=== PATIENT | male | born 1965 | race Caucasian/White ===

== ENCOUNTER 2017-02-11 12:15 | Inpatient (IN) ==
[2017-02-11] MEDS ORDERED: NS 1,000 ML IV SCH (13:00)
--- NOTE | 2017-02-11 13:07 | Emergency Department Report ---
Nausea/Vomiting/Diarrhea HPI - General Chief complaint: Abdominal Pain Stated complaint: light headed, abd cramping, and bloated Time Seen by Provider: 02/11/17 12:45 Source: patient, other (report from Dr Gomes) - History of Present Illness HPI Narrative: Pt presents from PCP office with a c/o abd pain, bloating , and bowel leakage. Pt reports a perforated bowel over a year ago for which he had a colectomy and colostomy placed. Last week he had an "unknown" radiology test to "check if things were leaking" for which he received dye. Pt states he was instructed he may have some leakage 2/2 the dye administration and then 4 days later he developed abd pain and bloating. He also reports having an actual bowel movement at that time. He reports very little PO intake over hte last several days and has been "belching" frequently MD complaint: diarrhea, abdominal pain, other (bloating, belching, ostomy leakage) Associated Abdominal Pain: Yes Location of pain: diffuse, RUQ Quality: cramping, aching, sharp Consistency: constant Relieving factors: none Exacerbating factors: none Associated symptoms: denies other symptoms - Related Data Home Medications Medication Instructions Recorded Confirmed Quetiapine Fumarate [Seroquel Xr] 800 mg PO HS #0 09/22/15 02/11/17 Warfarin Sodium 5 mg PO SUMOWEFRSA@1800 #0 09/22/15 02/11/17 Benztropine Mesylate 0.5 mg PO BID 01/18/17 02/11/17 L-Methylfolate 1 tab PO DAILY 01/18/17 02/11/17 Pregabalin Cap [Lyrica] 150 mg PO TID 01/18/17 02/11/17 Sertraline [Zoloft] 200 mg PO DAILY 01/18/17 02/11/17 Trazodone [Desyrel] 100 mg PO TID PRN 01/18/17 02/11/17 Warfarin Sodium 7.5 mg PO TUTH@1800 01/18/17 02/11/17 Brexpiprazole [Rexulti] 2 mg PO DAILY 02/11/17 02/11/17 Allergies Allergy/AdvReac Type Severity Reaction Status Date / Time No Known Drug Allergies Allergy Unknown Verified 02/11/17 12:23 Review of Systems All systems: reviewed and negative except as stated Constitutional: Denies: fever, chills Cardiovascular: Denies: chest pain, palpitations Respiratory: Denies: cough, dyspnea Gastrointestinal: Reports: abdominal pain, nausea Neurological: Reports: weakness Psychiatric: Reports: anxiety, depression PFS Patient Stated Medical History Pneumonia Yes Other Respiratory Yes: pe Other GI Yes Blood Disorders Yes: Factor V Leiden Other Hematologic Yes: pe Other Musculoskeletal Yes: Dystonia Medical History Updates: Chronic pain. Depression. Insomnia. Factor V leiden. Dystonia - Social History Smoking status: Current some day smoker Physical Exam - Limitations Limitations: no limitations - General General appearance: alert, in no apparent distress - Normal Exams: Head:: Normocephalic without trauma Eyes:: Pupils are PERRLA w/ EOMI Neck:: Full range of motion, without adenopathy Chest/Respirations:: Clear all recinos, with good airflow, and symmetry bilaterally Cardiovascular:: Regular rate and rhythm, without murmur or gallop, Pulses 2+ all extremities Abdomen:: Bowel sounds positive (diffuse pain with palpation, more prominent to the RUQ around colostomy site) Musculoskeletal:: No tenderness, or deformity noted, good range of motion Integumentary:: No rashes Neurological:: Patient is alert, and oriented Psychiatric:: Patient exhibits, appropriate attention, emotion and affect Course - Consultations Consultation #1: Mireya Time: 14:41 Consultation #2: Chelsy Time: 14:48 Vital Signs Temperature 97.9 F 02/11/17 12:23 Pulse Rate 99 02/11/17 12:23 Respiratory Rate 20 02/11/17 12:23 Blood Pressure 90/65 02/11/17 12:23 Pulse Oximetry 96 02/11/17 12:23 Temperature 97.9 F 02/11/17 12:23 Pulse Rate 94 02/11/17 14:15 Respiratory Rate 20 02/11/17 12:23 Blood Pressure 129/87 02/11/17 14:15 Pulse Oximetry 97 02/11/17 14:15 Nausea/Vomiting/Diarrhea - [facility] Narrative Medical decision making narrative: Labs reviewed consistent with dehydration and ARF. Ct report shows small bowel obstruction which is consistent with pt presentation and verbal reports. Dr Gomes notified and updated on diagnostic findings. Pt to be admitted to Dr Valentino. Results discussed with pt who verbalizes understanding - Differential Diagnosis Likely: food poisoning, gastroenteritis, clostridium difficile infection, dehydration - Lab Data Attestation: I reviewed the patient's lab results. Result diagrams: 02/11/17 13:16 02/11/17 13:16 Lab Results 02/11/17 02/11/17 02/11/17 Range/Units 13:16 13:16 13:16 WBC 12.0 H (4.5-11.0) T/MM3 RBC 5.07 (4.50-5.90) M/MM3 Hgb 13.9 (13.5-17.5) GM/DL Hct 40.9 L (41-53) % MCV 80.7 (80-100) UM3 MCH 27.4 (26-34) UUG MCHC 34.0 (31-37) GM/DL RDW Std Deviation 42.8 (36.9-50.2) FL Plt Count 286 D (130-400) T/MM3 MPV 10.8 (9.4-12.4) UM3 Immature Gran % (Auto) 0.4 (0.0-0.5) % Neut % (Auto) 77.2 H (33-66) % Lymph % (Auto) 10.2 L (23-45) % Hendricks % (Auto) 10.9 H (0-9.0) % Eos % (Auto) 1.2 (0-4) % Baso % (Auto) 0.1 (0-2) % Neut # (Auto) 9.3 H (1.8-7.7) T/MM3 Lymph # (Auto) 1.2 (1-4.8) T/MM3 Hendricks # (Auto) 1.3 H (0-0.8) T/MM3 Eos # (Auto) 0.1 (0-0.5) T/MM3 Baso # (Auto) 0.0 (0-0.2) T/MM3 Abs Immat Gran (auto) 0.05 H (0.00-0.03) T/MM3 INR 2.24 H (0.99-1.21) Turbidity < 20 (0-20) Sodium 139 (134-144) MEQ/L Potassium 3.9 (3.6-5) MEQ/L Chloride 99 (98-107) MEQ/L Carbon Dioxide 21 L (22-30) MEQ/L Anion Gap 19 H (5-15) MEQ/L BUN 55.0 H* (9-20) MG/DL Creatinine 2.8 H (0.8-1.5) MG/DL GFR Calculation 24 BUN/Creatinine Ratio 20 (6-26) RATIO Glucose 130 H (75-110) MG/DL Calculated Osmolality 285 H (261-280) MOSM/KG Calcium 11.3 H (8.4-10.2) MG/DL Total Bilirubin 0.70 (0.20-1.30) MG/DL Icterus Index < 2 (0-7) AST 39 (17-59) U/L ALT 65 (21-72) U/L Alkaline Phosphatase 89 (38-126) U/L Total Protein 9.2 H (6.3-8.2) G/DL Albumin 5.1 H (3.5-5.0) G/DL Globulin 4.1 H (2.4-3.6) G/DL Albumin/Globulin Ratio 1.2 (1.1-2.2) RATIO Specimen Hemolysis 31 H (0-25) - Radiology Data Attestation: I reviewed the patient's radiology results. (per Dr Mccarthy) Disposition Clinical Impression: Small bowel obstruction, Acute renal failure (ARF), Dehydration Disposition: 02 To [facility] [place] Care Condition: Improved Additional Instructions: per hospitalist service Prescriptions: No Action Quetiapine Fumarate [Seroquel Xr] 800 mg PO HS #0 Sertraline [Zoloft] 200 mg PO DAILY Benztropine Mesylate 0.5 mg PO BID Warfarin Sodium 7.5 mg PO TUTH@1800 Trazodone [Desyrel] 100 mg PO TID PRN PRN Reason: Prn Orders L-Methylfolate 1 tab PO DAILY Brexpiprazole [Rexulti] 2 mg PO DAILY Warfarin Sodium 5 mg PO SUMOWEFRSA@1800 #0 Pregabalin Cap [Lyrica] 150 mg PO TID Referrals: Noé Dee MD [Primary Care Provider] - Juan Pablo Gomes DO [Family Provider] - Time of Disposition: 14:56 - Seen By: midlevel
[2017-02-11] MEDS ORDERED: NS 100 ML ONE (13:10)
[2017-02-11] MEDS ORDERED: IOHEXOL 300mg/ml 100ml INJECTION ONE (13:10)
[2017-02-11] MEDS ORDERED: SALINE FLUSH 10ml SYRINGE ONE (13:10)
[2017-02-11] MEDS: SALINE FLUSH 10ml SYRINGE IVF PRN (13:30)
[2017-02-11] MEDS ORDERED: IODIXANOL 320mg/ml 100ml INJECTION IV ONE (13:46)
--- OUTSIDE RECORDS SUMMARY | 2017-02-11 13:52 | External Medical Summary | Continuity of Care Document ---
:1965 Author Organization [facility] Care Team Providers Name Role Phone [employer] Unavailable Unavailable Problems Problem Status Onset Classification Date Comments Source Date Reported Pulmonary Embolism Active 10/16/19 Problem 12/09/2013 [facility] Pulmonary embolism Active 10/16/19 Problem 07/29/2013 [facility] Pulmonary Embolism Active 10/16/19 Problem 04/08/2013 [facility] Activity Active Problem 12/09/2013 [facility] intolerance Medical (finding) Centers Encounter for Active Problem 12/09/2013 [facility] therapeutic drug Medical monitoring Centers Anxiety (finding) Active Problem 12/09/2013 [facility] At risk for falls Active Problem 12/09/2013 [facility] (finding[facility] At risk of Active Problem 12/09/2013 [facility] pressure sore Medical (finding) Centers Bipolar disorder Active Problem 12/09/2013 [facility] in partial Medical remission Centers (disorder) Other and Active Problem 12/09/2013 [facility] unspecified Medical coagulation Centers defects Venous embolism Active Problem 12/09/2013 [facility] and thrombosis of Medical unspecified deep Centers vessels of lower extremity Pain in limb Active Problem 12/09/2013 [facility] (finding[facility] Coagulation factor Active Problem 12/09/2013 [facility] V (substance) [facility] Centers Primary Active Problem 12/09/2013 [facility] hypercoagulable Medical state Centers Arthralgia of the Active Problem 12/09/2013 [facility] lower leg Medical (finding) Centers Lipoma Active Problem 12/09/2013 [facility] Obesity, Active Problem 12/09/2013 4Added based on [facility] unspecified documentation Medical of BMI=30.8. Centers Overweight Active Problem 12/09/2013 5Added based on [facility] (finding) documentation Medical of BMI=28.9. Centers Other specified Active Problem 12/09/2013 [facility] forms of effusion, Medical except tuberculous Centers Peripheral venous Active Problem 12/09/2013 [facility] insufficiency Medical (disorder) Centers Pain in joint Active Problem 07/29/2013 [facility] involving lower Medical leg Centers Lipoma Active Problem 07/29/2013 [facility] Obesity (disorder) Active Problem 07/29/2013 4Added based on [facility] documentation Medical of BMI=30.8. Centers Venous Active Problem 07/29/2013 [facility] (peripheral) Medical insufficiency, [facility] unspecified Pain in limb Active Problem 06/03/2013 [facility] Overweight Active Problem 06/03/2013 5Added based on [facility] documentation Medical of BMI=28.9. Centers Activity Active Problem 04/08/2013 [facility] intolerance Medical (specify level) Centers Anticoagulation Active Problem 04/08/2013 [facility] Follow Up Medical Encounter Centers Anxiety Active Problem 04/08/2013 [facility] At risk for falls Active Problem 04/08/2013 [facility] At risk of Active Problem 04/08/2013 [facility] pressure sore [facility] Bipolar disorder Active Problem 04/08/2013 [facility] in partial Medical remission Centers Coagulation Active Problem 04/08/2013 [facility] Deficiency [facility] DVT, lower Active Problem 04/08/2013 [facility] extremity [facility] Extremity Pain Active Problem 04/08/2013 [facility] Factor V Active Problem 04/08/2013 [facility] Factor V Leiden Active Problem 04/08/2013 [facility] Mutation [facility] Knee pain Active Problem 04/08/2013 [facility] Obesity NOS Active Problem 04/08/2013 4Added based on [facility] documentation Medical of BMI=30.8. Centers Pleural effusion Active Problem 04/08/2013 [facility] (other than TB) [facility] Venous Active Problem 04/08/2013 [facility] insufficiency NOS [facility] Medications Medication Details Route Status Patient Ordering Order Source Instructions Provider Date Catia CR =12.5 mg, 1 Inactive Antwon Stahluman 12.5 mg oral tab, PO, QHS, Medical tablet, PRN for sleep, [facility] extended # 30 tab, 2 release Refill(s), other reason (Rx) influenza 0.5 mL, Inactive Anastasia [facility] virus vaccine injection, Medical VACCONCE, IM, [facility] Start date 02/05/11 0:49:00Give prior to discharge if appropriate and with signed consent. Manufacturer__ Exp: _ Lot: _ Paxil 30 mg =60 mg, 2 tab, Active [facility] oral tablet PO, Daily, Medical voucher, # 60 Centers tab, 2 Refill(s), [facility]
</br>vou paramjit Seroquel 300 =300 mg, 1 Active [facility] mg oral tab, PO, QHS, Medical tablet voucher, # 30 Centers tab, 2 Refill(s), Pharm[facility]
</br>vou paramjit trazodone 100 100 mg 1 tab, Active [facility] mg oral PO, QHS, # 30 Medical tablet tab, 1 Centers Refill(s), Pharmacy: [facility] Vicodin PO PO Active [facility] trazodone 50 50 mg 1 tab, PO Active [facility] mg oral PO, QHS, # 30 Medical tablet tab, 1 Centers Refill(s), Pharmacy: [facility] Wellbutrin XL =150 mg, 1 PO Active [facility] 150 mg/24 tab, PO, Q24H, Medical hours oral # 30 tab, 0 Centers tablet, Refill(s), extended Pharmacy [facility] release [facility] Ambien PO, As Needed PO Active [facility] Immunizations Immunization Date Given Site Status Last Updated Comments Source Influenza 02/09/2011 completed [facility] Results Order Name Results Value Reference Date Interpretation Comments Source Range Patient INR POC 3.3 0.8 - 1.2 HI 1Interpretiv [facility] Viewable 013 e Data: Medical Results Analytical Centers low limit is 0.9. Values less than 0.9 will be not be reported for Point of Care INR. In these instances a venous sample will be required for testing by Main Laboratory. Vital Signs Vital Sign Value Date Comments Source Diastolic BP 91 mmHg 12/08/2013 [facility] Systolic BP 135 mmHg 12/08/2013 [facility] Resp. Rate 20 BRMIN 12/08/2013 [facility] Heart Rate 100 bpm 12/08/2013 [facility] BP Site Left Arm 12/08/2013 [facility]
</br Centers >(12/08/2013 09:15:00) <sup> </sup> Cuff Size Adult Regular 12/08/2013 [facility] Cuff Centers
</br >(12/08/2013 09:15:00) <sup> </sup> Temperature Oral 97.1 [degF] 12/08/2013 [facility] Cuff Size Adult Regular 04/07/2013 [facility] Centers
</br >(04/07/2013 08:24:00) <sup> </sup> BP Site Right Arm 04/07/2013 [facility]
</br Centers >(04/07/2013 08:24:00) <sup> </sup> Diastolic BP 85 mmHg 04/07/2013 [facility] Systolic BP 142 mmHg 04/07/2013 [facility] Heart Rate 121 bpm 04/07/2013 [facility] Cuff Size Adult Regular 02/10/2013 [facility]
</br >(02/10/2013 07:46:00) <sup> </sup> BP Site Left Arm 02/10/2013 [facility]
</br Centers >(02/10/2013 07:46:00) <sup> </sup> Diastolic BP 97 mmHg 02/10/2013 [facility] Resp. Rate 20 BRMIN 02/10/2013 [facility] Heart Rate 100 bpm 02/10/2013 [facility] Systolic BP 139 mmHg 02/10/2013 [facility] Temperature Oral 97.2 [degF] 02/10/2013 [facility] BP Site Left Arm 02/09/2013 [facility]
</br Centers >(02/09/2013 14:23:00) <sup> </sup> Diastolic BP 83 mmHg 02/09/2013 [facility] Systolic BP 132 mmHg 02/09/2013 [facility] Heart Rate 121 bpm 02/09/2013 [facility] Resp. Rate 18 BRMIN 02/09/2013 [facility] Family History Value Date Source Advance Directives Order Name Results Value Date Source
--- OUTSIDE RECORDS SUMMARY | 2017-02-11 13:54 | External Medical Summary ---
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 Problem Bipolar disorder, unspecified 296.80 Active Medications Medication Code Code Instructions Start End Date Status Dosage System [place] Clonazepam NDC 64398-03 0.5 MG Orally 1 tablet 32-01 Once a day daily, may have 1/2 tablet prn daily Benztropine NDC 02612-03 1 MG Orally 1 tablet Mesylate 00-00 Twice a day Hydrocodone-Acet NDC 64748-19 10-325 MG/15ML 1 tablet aminophen 71-07 Orally QID Lovastatin NDC 72099-64 20 MG Orally November 01, 1 tablet 76-06 Once a day 2014 with a meal Paxil NDC 91548-06 30 MG Orally 2 tablet in - Once a day the evening Warfarin Sodium NDC 90518-64 10 MG Orally 7.5mg daily 10-01 daily except on Sat and when he takes 10mg Seroquel NDC 12386-69 400 MG Orally 2 tablet at 79-10 Once a day bedtime Procedures Procedure Coding System Code Date PROTIME INR, IN HOUSE CPT-4 28886 Jan 04, 2015 Results Name Result Date Reference Range Unit Abnormality Flag In House Protime INR Summary Purpose [employer] Submission
--- OUTSIDE RECORDS SUMMARY | 2017-02-11 13:54 | External Medical Summary ---
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 Problem Bipolar disorder, unspecified 296.80 Active Problem Chronic pain syndrome 338.4 Active Medications Medication Code System Code Instructions Start End Date Status Dosage Date Paxil [facility] 35614-19 30 MG Orally Active 2 tablet in 12-13 Once a day the evening Warfarin Sodium [facility] 60059-83 7.5 MG Orally Active 1 tablet 75-01 [place] [address]-10 300 MG Orally Active 1 tablet at 74-39 Once a day bedtime Procedures Procedure Coding System Code Date PROTIME INR, IN HOUSE CPT-4 42356 Dec 24, 2013 Vital Signs Date/Time: October 01, 2013 Height 76.25 inches Weight 232.8 lbs Temperature 97.7 F Blood Pressure Diastolic 78 mm Hg Blood Pressure Systolic 110 mm Hg Cardiac Monitoring Heart Rate 104 Beats per Minute BMI 28.15 Index Respiratory Rate 16 per Minute Results No Known Results Summary Purpose [employer] Submission
--- OUTSIDE RECORDS SUMMARY | 2017-02-11 13:54 | External Medical Summary ---
[...] disorder, unspecified 296.80 Active Medications Medication Code System Code Instructions Start End Date Status Dosage Date Warfarin Sodium [facility] 29563-814 10 MG Orally 7.5mg 0-01 daily daily except on Sat and when he takes 10mg Results No Known Results Summary Purpose [employer] Submission
--- OUTSIDE RECORDS SUMMARY | 2017-02-11 13:54 | External Medical Summary | Clinical Summary ---
:1965 Author Organization [facility] Address [address] [place] [address] Phone Care Team Providers Name Role Phone Unavailable Primary Care Provider Unavailable Source Comments Some departments are not documenting in the electronic medical record. If you do not see the information that you expected, contact Release of Information in the Health Information Management department at [phone] for further assistance in locating additional records.[facility] Allergies No Known Allergies Current Medications Prescription Sig. Disp. Refills Start Date End Date Status WARFARIN SODIUM (COUMADIN Take by mouth. Active PO) hydrocodone/acetaminophen Take 1-2 Tabs by 20 0 04/19/2009 Active (VICODIN) 5/500 mg tablet mouth Every 6 Hours as needed for Pain. warfarin (COUMADIN) 5 mg Take 1.5 Tabs by 45 1 04/19/2009 Active tablet mouth Daily. Social History Tobacco Use Types Packs/Day Years Used Date Current Every Day Smoker 1 Alcohol Use Drinks/Week oz/Week Comments No Sex Assigned at Date Recorded Not on file Last Filed Vital Signs Vital Sign Reading Time Taken Blood Pressure 130/104 04/19/2009 2:58 PM [employer] Pulse 118 04/19/2009 2:58 PM [employer] Temperature 37.1 C (98.7 F) 04/19/2009 2:58 PM [employer] Respiratory Rate - - Oxygen Saturation 97% 04/19/2009 2:58 PM [employer] Inhaled Oxygen Concentration - - Weight - - Height - - Body Mass Index - - Plan of Treatment Health Maintenance Due Date Last Done Comments HEPATITIS C SCREENING 1965 PHYSICAL (COMPREHENSIVE) EXAM 12/02/1971 PERTUSSIS VACCINE 12/02/1975 TETANUS VACCINE 1981 COLORECTAL CANCER SCREENING 2014 INFLUENZA VACCINE 11/20/2016
--- OUTSIDE RECORDS SUMMARY | 2017-02-11 13:54 | External Medical Summary ---
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 Seroquel NDC 79921-08 300 MG Orally 1 tablet at 74-39 Once a day bedtime Hydrocodone-Matthew NDC 41146-14 7.5-325 MG 1 tablet taminophen 66-01 Orally tid Procedures Procedure Coding System Code Date COMPLETE CBC W/AUTO DIFF WBC CPT-4 21035 Jun 09, 2014 COMPREHENSIVE METABOLIC PANEL CPT-4 31111 Jun 09, 2014 PROTIME INR, IN HOUSE CPT-4 45747 Jun 09, 2014 T4 FREE CPT-4 24562 Jun 09, 2014 TSH CPT-4 03526 Jun 09, 2014 HEPATIC FUNCTION PANEL CPT-4 05808 Jun 09, 2014 LIPID PANEL CPT-4 24912 Jun 09, 2014 Results No Known Results Summary Purpose [employer] Submission
--- OUTSIDE RECORDS SUMMARY | 2017-02-11 13:54 | External Medical Summary ---
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
--- OUTSIDE RECORDS SUMMARY | 2017-02-11 13:54 | External Medical Summary ---
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 Assessment Bipolar disorder, unspecified 296.80 Active Problem Bipolar disorder, unspecified 296.80 Active Problem Chronic pain syndrome 338.4 Active Medications Medication Code System Code Instructions Start End Date Status Dosage Date Warfarin Sodium NDC 53362-01 10 MG Orally Mar 10, Active 1 tablet 10-01 Once every 2013 evening /// Hydrocodone-Matthew NDC 83358-74 7.5-325 MG Active 1 tablet taminophen 66-01 Orally tid Seroquel NDC 09941-73 300 MG Orally Active 1 tablet at 74-39 Once a day bedtime Paxil NDC 44441-25 30 MG Orally Active 2 tablet in 12-13 Once a day the evening Warfarin Sodium NDC 97313-64 7.5 MG Orally Active 1 tablet 75-01 every // evening Procedures Procedure Coding System Code Date OFFICE VISIT, EST-LOW COMPLEXITY (15 MIN.) CPT-4 72791 Mar 10, 2014 COMPREHENSIVE METABOLIC PANEL CPT-4 16933 Mar 10, 2014 HEMOGLOBIN A1C, IN HOUSE CPT-4 48124 Mar 10, 2014 PROTIME INR, IN HOUSE CPT-4 99015 Mar 10, 2014 TSH CPT-4 47406 Mar 10, 2014 Vital Signs Date/Time: Mar 10, 2014 Height 76.25 inches Weight 258.12 lbs Temperature 98.9 F Blood Pressure Diastolic 86 mm Hg Blood Pressure Systolic 112 mm Hg Cardiac Monitoring Heart Rate 88 Beats per Minute BMI 31.21 Index Respiratory Rate 16 per Minute Results Name Result Date Reference Range Unit Comprehensive Metabolic Panel (CMP) In House Protime INR In House Hemoglobin A1c Summary Purpose eClinicalWorks Submission
--- OUTSIDE RECORDS SUMMARY | 2017-02-11 13:54 | External Medical Summary ---
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
--- OUTSIDE RECORDS SUMMARY | 2017-02-11 13:54 | External Medical Summary ---
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
--- OUTSIDE RECORDS SUMMARY | 2017-02-11 13:54 | External Medical Summary ---
:1965 Author Organization eClinicalWorks Care Team Providers Name Role Phone Jordan Salas Provider Role Unavailable Allergies, Adverse Reactions, Alerts Substance Reaction Event Type N.K.D.A. 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 Cymbalta [facility] 64685-47 60 MG Orally 2 capsule 37-01 Once a day Hydrocodone-Matthew NDC 22334-91 7.5-325 MG 1 tablet as taminophen 66-01 Orally every 4-6 needed hrs p.r.n. for Hydrocodone-Matthew NDC 03388-54 7.5-325 MG Feb 11, 1 tablet as taminophen 66-01 Orally every 4-6 2015 needed hrs p.r.n. for Seroquel XR NDC 05349-23 200 MG Orally August 22, 1 tablet 82-39 every evening 2015 with 400mg to equal 600mg [place] [address]-90 1 MG Orally 1 tablet Mesylate 00-00 Twice a day Seroquel XR NDC 76191-28 400 MG Orally 2 tablet in 84-39 Once a day in the evening the evening Amoxicillin [facility] 63014-21 500 MG Orally 1 capsule 12-25 every 8 hrs for Warfarin Sodium [facility] 42962-09 5 MG Orally as take 5mg 08-20 directed. daily except Wed take 7.5 mg Procedures Procedure Coding System Code Date OV OBS - NO OTH SRVC PRFRM SEE CPT CPT-4 D9430 Feb 06, 2016 Results No Known Results Summary Purpose eClinicalWorks Submission
--- OUTSIDE RECORDS SUMMARY | 2017-02-11 13:54 | External Medical Summary ---
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 48061-890 5 MG Orally as take 7.5mg 5-01 directed. (1 04/23 tabs) Results No Known Results Summary Purpose [employer] Submission
--- OUTSIDE RECORDS SUMMARY | 2017-02-11 13:54 | External Medical Summary ---
:1965 Author Organization eClinicalWorks Care Team Providers Name Role Phone Phuong Gaona Provider Role Unavailable Allergies, Adverse Reactions, Alerts Substance Reaction Event Type N.K.D.A. Info Not Available Non Drug Allergy Problems Problem Type Condition ICD-9 Code Onset Dates Condition Status Assessment Insomnia, unspecified 780.52 Active Assessment Bipolar disorder, unspecified 296.80 Active Assessment Chronic pain syndrome 338.4 Active Assessment Colon cancer screening V76.51 Active Problem Congenital deficiency of other 286.3 [...] End Date Status Dosage Date Warfarin Sodium [facility] 85716-78 7.5 MG Orally 1 tablet 75-01 Two times a Week on Saturday and Saturday *MUST HAVE LABS BFORE NEXT REFILL* [place] [address]-01 30 MG Orally 2 tablet in 12-13 Once a day [place] [address]-66 10-325 MG/15ML 1 tablet taminophen 71-07 [place] [address]-91 400 MG Orally 1 tablet at 79-10 Once a day bedtime Procedures Procedure Coding System Code Date COMPREHENSIVE METABOLIC PANEL CPT-4 56672 October 13, 2014 LIPID PANEL CPT-4 87503 October 13, 2014 COMPLETE CBC W/AUTO DIFF WBC CPT-4 18447 October 13, 2014 HEMOSURE iFOB SCREENING, IN HOUSE CPT-4 35105 October 13, 2014 TSH CPT-4 43132 October 13, 2014 OFFICE VISIT, EST-LOW COMPLEXITY (15 MIN.) CPT-4 94311 October 13, 2014 PROTIME INR, IN HOUSE CPT-4 39246 October 13, 2014 Vital Signs Date/Time: October 13, 2014 Height 76.25 in Weight 250.12 lbs Temperature 98.5 F Blood Pressure Diastolic 92 mm Hg Blood Pressure Systolic 130 mm Hg Cardiac Monitoring Heart Rate 86 /min BMI 30.24 Index Respiratory Rate 12 /min Results Name Result Date Reference Range Unit Abnormality Flag In House Protime INR In House Hemosure iFOB Screening Test Summary Purpose eClinicalWorks Submission
--- OUTSIDE RECORDS SUMMARY | 2017-02-11 13:54 | External Medical Summary ---
:1965 Author Organization eClinicalWorks Care Team Providers Name Role Phone Juan Pablo Gomes Provider Role Unavailable Allergies, Adverse Reactions, Alerts Substance Reaction Event Type N.K.D.A. 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 Problem Chronic fatigue syndrome 780.71 Active Problem Bipolar disorder, unspecified F31.9 Active Problem Chronic pain syndrome G89.4 Active Assessment Solitary pulmonary nodule R91.1 Active Assessment Dental caries, unspecified K02.9 Active Assessment Major depressive disorder, single F32.9 Active episode, unspecified Assessment Dizziness and giddiness R42 Active Problem Opioid dependence, uncomplicated F11.20 Active Problem Generalized anxiety disorder F41.1 Active 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 daily except Wed take 7.5 [place] [address]-93 7.5-325 MG 1 tablet as taminophen 66-01 Orally every 4-6 needed hrs p.r.n. for Benztropine [facility] 17013-24 1 MG Orally 1 tablet Mesylate 00-00 Twice a day Seroquel XR [facility] 96499-90 400 MG Orally 2 tablet in 84-39 Once a day in the evening the evening ProAir HFA [facility] 02467-99 108 (90 Base) Dec 12, 1 to 2 puffs 51-85 MCG/ACT 2015 as needed Inhalation every for 5 hrs shortness of breath. Cymbalta [facility] 93551-95 60 MG Orally 2 capsule 37-01 Once a day Procedures Procedure Coding System Code Date OFFICE VISIT, EST-LOW COMPLEXITY (15 MIN.) CPT-4 84723 Feb 27, 2016 PROTIME INR, IN HOUSE CPT-4 31980 Feb 27, 2016 Vital Signs Date/Time: Feb 27, 2016 Temperature 98.3 F Height 76.25 in Weight 234.0 lbs Blood Pressure Diastolic 88 mm Hg Blood Pressure Systolic 126 mm Hg Cardiac Monitoring Heart Rate 97 /min BMI 28.29 Index Oximetry 95 % Respiratory Rate 16 /min Results Name Result Date Reference Range Unit Abnormality Flag In House Protime INR ----results 2.8 [id number] Summary Purpose eClinicalWorks Submission
--- OUTSIDE RECORDS SUMMARY | 2017-02-11 13:54 | External Medical Summary ---
:1965 Author Organization eClinicalWorks Care Team Providers Name Role Phone Phuong Gaona Provider Role Unavailable Allergies No Known Allergies Problems Problem Type Condition ICD-9 Code Onset Dates Condition Status Assessment Other abnormal blood chemistry 790.6 Active Problem Congenital deficiency of other 286.3 [...] Start End Date Status Dosage Date Paxil [facility] 50653-12 30 MG Orally 2 tablet in 12-13 Once a day the evening Seroquel [facility] 79306-32 400 MG Orally 1 tablet at 79-10 Once a day bedtime Warfarin Sodium [facility] 15195-98 7.5 MG Orally 1 tablet 75-01 Two times a Week on Saturday and Saturday *MUST HAVE LABS BFORE NEXT REFILL* Hydrocodone-Matthew [facility] 62367-25 10-325 MG/15ML 1 tablet taminophen 71-07 Orally QID Procedures Procedure Coding System Code Date PROTIME INR, IN HOUSE CPT-4 16712 October 21, 2014 Results Name Result Date Reference Range Unit Abnormality Flag In House Protime INR Summary Purpose eClinicalWorks Submission
--- OUTSIDE RECORDS SUMMARY | 2017-02-11 13:54 | External Medical Summary ---
:1965 Author Organization eClinicalWorks Care Team Providers Name Role Phone Juan Pablo Gomes Provider Role Unavailable Allergies, Adverse Reactions, Alerts Substance Reaction Event Type N.K.D.A. 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 Assessment Swelling of limb 729.81 Active Problem Bipolar disorder, unspecified 296.80 Active Problem Chronic pain syndrome 338.4 Active Medications Medication Code System Code Instructions Start End Date Status Dosage Date Warfarin Sodium [facility] 69858-59 5 MG Orally Two 1 tablet 05-01 times a Week on Saturday and Saturday Hydrocodone-Matthew [facility] 52306-82 10-325 MG/15ML 1 tablet taminophen 71-07 [place] [address]-55 30 MG Orally 2 tablet in 04-03 [place] [address]-70 20 MG Orally November 01, 1 tablet 76-06 Once a day 2014 [place] [address]-01 400 MG Orally 2 tablet at 79-10 Once a day bedtime Procedures Procedure Coding System Code Date PROTIME INR, IN HOUSE CPT-4 59597 Nov 22, 2014 OFFICE VISIT, EST-MOD. COMPLEXITY (25 MIN) CPT-4 62468 Nov 22, 2014 Vital Signs Date/Time: Nov 22, 2014 Height 76.25 in Weight 227.4 lbs Temperature 98.3 F Blood Pressure Diastolic 88 mm Hg Blood Pressure Systolic 128 mm Hg Cardiac Monitoring Heart Rate 99 /min BMI 27.50 Index Oximetry 97 % Respiratory Rate 16 /min Results No Known Results Summary Purpose eClinicalWorks Submission
--- OUTSIDE RECORDS SUMMARY | 2017-02-11 13:54 | External Medical Summary ---
:1965 Author Organization eClinicalWorks Care Team Providers Name Role Phone Clarke, Raven Provider Role Unavailable Allergies No Known Allergies Problems Problem Type Condition Code Onset Dates Condition Status Problem Bipolar disorder, in partial F31.71 Active remission, most recent episode hypomanic Problem Other and unspecified coagulation 286.9 Active defects Problem Chronic pain syndrome 338.4 Active Problem Opioid dependence, uncomplicated F11.20 Active Problem Generalized anxiety disorder F41.1 Active Problem Bipolar disorder, unspecified F31.9 Active Problem Chronic pain syndrome G89.4 Active Problem Chronic obstructive pulmonary J44.9 Active disease, unspecified Problem Insomnia, unspecified 780.52 Active Problem 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
--- OUTSIDE RECORDS SUMMARY | 2017-02-11 13:54 | External Medical Summary ---
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 [address]-15 1 MG Orally 1 tablet Mesylate 00-00 Twice a day Lovastatin NDC 00087-21 20 MG Orally November 01, 1 tablet 76-06 Once a day 2014 [place] [address]-28 10-325 MG/15ML 1 tablet aminophen 71-07 Orally QID Seroquel NDC 58055-58 400 MG Orally 1 tablet 79-10 Once a day Procedures Procedure Coding System Code Date RESIN COMPOS - 2 SURFACES POSTERIOR CPT-4 D2392 August 15, 2015 RESIN COMPOS - 2 SURFACES POSTERIOR CPT-4 D2392 August 15, 2015 Results No Known Results Summary Purpose eClinicalWorks Submission
--- OUTSIDE RECORDS SUMMARY | 2017-02-11 13:54 | External Medical Summary ---
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 daily except Wed take 7.5 mg Seroquel XR [facility] 05818-14 400 MG Orally 2 tablet in 84-39 Once a day in the evening the evening Benztropine [facility] 36677-32 1 MG Orally 1 tablet Mesylate 00-00 [place] [address]-43 200 MG Orally August 22, 1 tablet 82-39 every evening 2015 with 400mg to equal 600mg ProAir HFA [facility] 71849-76 108 (90 Base) Dec 12, 1 to 2 puffs 51-85 MCG/ACT 2016 as needed Inhalation every for 5 hrs shortness of breath. Procedures Procedure Coding System Code Date OFFICE VISIT, EST-MOD. COMPLEXITY (25 MIN) CPT-4 15723 Jan 31, 2016 Vital Signs Date/Time: Jan 31, 2016 Temperature 98.7 F Height 76.25 in Weight 235.4 lbs Blood Pressure Diastolic 94 mm Hg Blood Pressure Systolic 128 mm Hg Cardiac Monitoring Heart Rate 94 /min BMI 28.46 Index Respiratory Rate 16 /min Results No Known Results Summary Purpose eClinicalWorks Submission
--- OUTSIDE RECORDS SUMMARY | 2017-02-11 13:54 | External Medical Summary ---
[...] Instructions Start End Date Status Dosage Date Seroquel [facility] 81698-68 400 MG Orally 1 tablet at 79-10 Once a day bedtime Paxil [facility] 43799-79 30 MG Orally 2 tablet in 12-13 Once a day the evening Hydrocodone-Matthew [facility] 53420-54 10-325 MG/15ML 1 tablet taminophen 71-07 Orally QID Warfarin Sodium [facility] 86459-49 7.5 MG Orally 1 tablet 75-01 Two times a Week on Saturday and Saturday *MUST HAVE LABS BFORE NEXT REFILL* Procedures Procedure Coding System Code Date PROTIME INR, IN HOUSE CPT-4 23866 October 14, 2014 Results No Known Results Summary Purpose eClinicalWorks Submission
--- OUTSIDE RECORDS SUMMARY | 2017-02-11 13:54 | External Medical Summary ---
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 Problem Bipolar disorder, unspecified 296.80 Active Assessment Reactive confusion 298.2 Active Assessment Dizziness and giddiness 780.4 Active Assessment Chronic fatigue syndrome 780.71 Active Medications Medication Code Code Instructions Start End Date Status Dosage System Date Clonazepam NDC 42924-11 0.5 MG Orally 1 tablet 32-01 Once a day daily, may have 1/2 tablet prn daily Hydrocodone-Acet NDC 74604-53 10-325 MG/15ML 1 tablet aminophen 71-07 Orally QID Paxil NDC 99228-72 30 MG Orally 2 tablet in 04-03 Once a day the evening Warfarin Sodium NDC 45005-34 5 MG Orally 7.5mg daily 05- daily except on Sat and when he takes 10mg Benztropine NDC 81839-31 1 MG Orally 1 tablet Mesylate 00-00 Twice a day Seroquel NDC 07420-63 400 MG Orally 2 tablet at 79-10 Once a day bedtime Lovastatin NDC 51784-13 20 MG Orally November 01, 1 tablet 76-06 Once a day 2014 with a meal Procedures Procedure Coding System Code Date OFFICE VISIT, EST-LOW COMPLEXITY (15 MIN.) CPT-4 41526 Dec 08, 2014 Vital Signs Date/Time: Dec 08, 2014 Height 76.25 in Weight 233.12 lbs Temperature 98.4 F Blood Pressure Diastolic 75 mm Hg Blood Pressure Systolic 105 mm Hg Cardiac Monitoring Heart Rate 131 /min BMI 28.19 Index Respiratory Rate 16 /min Results No Known Results Summary Purpose eClinicalWorks Submission
--- OUTSIDE RECORDS SUMMARY | 2017-02-11 13:54 | External Medical Summary ---
[...] Instructions Start End Date Status Dosage Date Hydrocodone-Matthew NDC 23493-45 7.5-325 MG Active 1 tablet taminophen 66-01 Orally tid Warfarin Sodium NDC 91085-03 10 MG Orally Mar 10, Active 1 tablet 10-01 Once every 2013 evening /// Seroquel NDC 87271-09 300 MG Orally Active 1 tablet at 74-39 Once a day bedtime Paxil NDC 59099-14 30 MG Orally Active 2 tablet in 12-13 Once a day the evening Warfarin Sodium NDC 70735-83 7.5 MG Orally Active 1 tablet 75-01 every // evening Procedures Procedure Coding System Code Date PROTIME INR, IN HOUSE CPT-4 31968 Mar 30, 2014 Vital Signs Date/Time: Mar 10, 2014 Height 76.25 inches Weight 258.12 lbs Temperature 98.9 F Blood Pressure Diastolic 86 mm Hg Blood Pressure Systolic 112 mm Hg Cardiac Monitoring Heart Rate 88 Beats per Minute BMI 31.21 Index Respiratory Rate 16 per Minute Results Name Result Date Reference Range Unit In House Protime INR Summary Purpose eClinicalWorks Submission
--- OUTSIDE RECORDS SUMMARY | 2017-02-11 13:55 | External Medical Summary ---
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
--- OUTSIDE RECORDS SUMMARY | 2017-02-11 13:55 | External Medical Summary ---
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
--- OUTSIDE RECORDS SUMMARY | 2017-02-11 13:55 | External Medical Summary ---
:1965 Author Organization [employer] Care Team Providers Name Role Phone Juan [...] Problem Solitary pulmonary nodule R91.1 Active Problem detention (current) use of Z79.01 Active anticoagulants Problem Chronic fatigue syndrome 780.71 Active Problem Bipolar disorder, unspecified F31.9 Active Problem Chronic pain syndrome G89.4 Active Problem Opioid dependence, uncomplicated F11.20 Active Problem Generalized anxiety disorder F41.1 Active Problem Bipolar disorder, in partial F31.71 Active remission, most recent episode hypomanic Problem Chronic pain syndrome 338.4 Active Medications No Known Medications Results No Known Results Summary Purpose [employer] Submission
--- OUTSIDE RECORDS SUMMARY | 2017-02-11 13:55 | External Medical Summary ---
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 Seroquel XR NDC 94844-08 200 MG Orally August 22, 1 tablet 82-39 every evening 2015 with 400mg to equal 600mg Lovastatin NDC 91092-26 20 MG Orally November 01, 1 tablet 76-06 Once a day 2014 with a meal Procedures Procedure Coding System Code Date RESIN COMPOS - ONE SURFACE ANTERIOR CPT-4 D2330 November 07, 2015 RESIN COMPOS - 2 SURFACES ANTERIOR CPT-4 D2331 November 07, 2015 Results No Known Results Summary Purpose eClinicalWorks Submission
--- OUTSIDE RECORDS SUMMARY | 2017-02-11 13:55 | External Medical Summary ---
[...] of other 286.3 Active clotting factors Problem [facility] (current) use of Z79.01 Active anticoagulants Problem Chronic fatigue syndrome 780.71 Active Medications No Known Medications Results No Known Results Summary Purpose eClinicalWorks Submission
--- OUTSIDE RECORDS SUMMARY | 2017-02-11 13:55 | External Medical Summary ---
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 Problem Opioid dependence, uncomplicated F11.20 Active Problem Generalized anxiety disorder F41.1 Active Medications Medication Code Code Instructions Start End Date Status Dosage System Date Benztropine [facility] 10496-64 1 MG Orally 1 tablet Mesylate 00-00 Twice a day Seroquel XR [facility] 89099-40 200 MG Orally August 22, 1 tablet 82-39 every evening 2015 with 400mg [place] equal 600mg [place] [address]-31 60 MG Orally 2 capsule 37-01 Once a day Seroquel XR [facility] 72872-81 400 MG Orally 1 tablet in 84-39 Once [place] [address]-04 5 MG Orally as take 5mg 05-01 directed. daily except Wed take 7.5 mg ProAir HFA [facility] 78866-66 108 (90 Base) Dec 12, 1 to 2 puffs 51-85 MCG/ACT 2015 as needed Inhalation every for 5 hrs shortness of breath. Procedures Procedure Coding System Code Date PROTIME INR, IN HOUSE CPT-4 75130 Jan 26, 2016 Results Name Result Date Reference Range Unit Abnormality Flag In House Protime INR ----results 2.1 [id number] Summary Purpose eClinicalWorks Submission
--- OUTSIDE RECORDS SUMMARY | 2017-02-11 13:55 | External Medical Summary ---
[...] Start End Date Status [place] [address]-96 400 MG Orally 1 tablet 79-10 Once a day Lovastatin NDC 09039-50 20 MG Orally November 01, 1 tablet 76-06 Once a day 2014 with a meal Cymbalta NDC 23006-64 60 MG Orally 2 capsule 37-01 Once a day Benztropine NDC 93028-11 1 MG Orally 1 tablet Mesylate 00-00 Twice a day Warfarin Sodium NDC 66356-99 5 MG Orally as take 7.5mg 05-01 [place]. [place] [address]-32 10-325 MG/15ML 1 tablet aminophen 71-07 Orally QID Procedures Procedure Coding System Code Date RESIN COMPOS - 1 SURFACE POSTERIOR CPT-4 D2391 August 03, 2015 RESIN COMPOS - 3 SURFACES POSTERIOR CPT-4 D2393 August 03, 2015 Results No Known Results Summary Purpose eClinicalWorks Submission
--- OUTSIDE RECORDS SUMMARY | 2017-02-11 13:55 | External Medical Summary ---
:1965 Author Organization [employer] Care Team Providers Name Role Phone Juan Pablo Gomes Provider Role Unavailable Allergies No Known Allergies Problems Problem Type Condition Code Onset Dates Condition Status Problem Generalized anxiety disorder F41.1 Active Problem Opioid dependence, uncomplicated F11.20 Active Problem Chronic fatigue syndrome 780.71 Active Problem Insomnia, unspecified 780.52 Active Problem custodial (current) use of Z79.01 Active anticoagulants Problem Chronic pain syndrome 338.4 Active Problem Bipolar disorder, in partial F31.71 Active remission, most recent episode hypomanic Problem 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
--- OUTSIDE RECORDS SUMMARY | 2017-02-11 13:55 | External Medical Summary ---
[...] of other 286.3 Active clotting factors Problem [facility] (current) use of Z79.01 Active anticoagulants Problem Chronic fatigue syndrome 780.71 Active Medications No Known Medications Results No Known Results Summary Purpose eClinicalWorks Submission
--- OUTSIDE RECORDS SUMMARY | 2017-02-11 13:55 | External Medical Summary ---
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.9 Active coagulation defects Problem Insomnia, unspecified 780.52 Active Assessment Bipolar disorder, unspecified 296.80 Active Problem Bipolar disorder, unspecified 296.80 Active Problem Chronic pain syndrome 338.4 Active Medications Medication Code System Code Instructions Start End Date Status Dosage Date Seroquel NDC 82901-58 300 MG Orally Active 1 tablet at 74-39 Once a day bedtime Hydrocodone-Matthew NDC 60591-35 7.5-325 MG Active 1 tablet taminophen 66-01 Orally tid Paxil NDC 83589-74 30 MG Orally Active 2 tablet in 04-03 Once a day the evening Warfarin Sodium NDC 09625-44 7.5 MG Orally Active 1 tablet 75-01 every // evening Warfarin Sodium NDC 28876-68 10 MG Orally Mar 10, Active 1 tablet 10-01 Once every 2013 evening /// Procedures Procedure Coding System Code Date Health and behavior assessment, 15 min ea. CPT-4 93248 Apr 13, 2014 Vital Signs Date/Time: Mar 10, 2014 Height 76.25 inches Weight 258.12 lbs Temperature 98.9 F Blood Pressure Diastolic 86 mm Hg Blood Pressure Systolic 112 mm Hg Cardiac Monitoring Heart Rate 88 Beats per Minute BMI 31.21 Index Respiratory Rate 16 per Minute Results No Known Results Summary Purpose eClinicalWorks Submission
--- OUTSIDE RECORDS SUMMARY | 2017-02-11 13:55 | External Medical Summary ---
:1965 Author Organization [employer] Care Team Providers Name Role Phone JimenezPhuong [...] Medications Results No Known Results Summary Purpose [employer] Submission
--- OUTSIDE RECORDS SUMMARY | 2017-02-11 13:55 | External Medical Summary ---
[...] End Date Status [place] [address]-10 0.5 MG Orally 1 tablet 32-01 Once a day daily, may have 1/2 [place] [address]-62 1 MG Orally 1 tablet Mesylate 00-00 Twice a day Hydrocodone-Acet NDC 84614-85 10-325 MG/15ML 1 tablet aminophen 71-07 Orally QID Lovastatin NDC 27384-63 20 MG Orally November 01, 1 tablet 76-06 Once a day 2014 with a meal Paxil NDC 20445-19 30 MG Orally 2 tablet in - Once a day the evening Warfarin Sodium NDC 66202-70 10 MG Orally 7.5mg daily 10-01 daily except on Sat and when he takes 10mg Seroquel NDC 47834-25 400 MG Orally 2 tablet at 79-10 Once a day bedtime Procedures Procedure Coding System Code Date PROTIME INR, IN HOUSE CPT-4 54578 Jan 11, 2015 Results No Known Results Summary Purpose [employer] Submission
--- OUTSIDE RECORDS SUMMARY | 2017-02-11 13:55 | External Medical Summary ---
:1965 Author Organization [employer] Care Team Providers Name Role Phone JimenezPhuong [...] Medications Results No Known Results Summary Purpose [employer] Submission
--- OUTSIDE RECORDS SUMMARY | 2017-02-11 13:55 | External Medical Summary ---
[...] of other 286.3 Active clotting factors Problem [facility] (current) use of Z79.01 Active anticoagulants Problem Chronic fatigue syndrome 780.71 Active Assessment Encounter for dental examination and Z01.20 Active cleaning without abnormal findings Problem Opioid dependence, uncomplicated F11.20 Active Problem Generalized anxiety disorder F41.1 Active Medications Medication Code Code Instructions Start End Date Status Dosage System Date Amoxicillin [facility] 64881-51 500 MG Orally 1 capsule 09-05 every 8 [place] [address]-38 7.5-325 MG 1 tablet as taminophen 66-01 Orally every 4-6 needed hrs p.r.n. for Seroquel XR [facility] 55128-65 400 MG Orally 2 tablet in 84-39 Once a day in the evening the evening Benztropine [facility] 35948-15 1 MG Orally 1 tablet Mesylate 00-00 Twice a day Warfarin Sodium [facility] 42967-13 5 MG Orally as take 5mg 05-01 directed. daily except Wed take 7.5 mg ProAir HFA [facility] 67216-48 108 (90 Base) Dec 12, 1 to 2 puffs 51-85 MCG/ACT 2015 as needed Inhalation every for 5 hrs shortness of breath. Cymbalta [facility] 63898-43 60 MG Orally 2 capsule 37-01 Once a day Seroquel XR [facility] 92124-42 200 MG Orally August 22, 1 tablet 82-39 every evening 2015 with 400mg to equal 600mg Procedures Procedure Coding System Code Date INTRAORL-PERIAPICAL 1 FILM 36294 CPT-4 D0220 Jan 31, 2016 LTD ORAL EVALUATION - PROBLEM FOCUS CPT-4 D0140 Jan 31, 2016 Results No Known Results Summary Purpose eClinicalWorks Submission
--- OUTSIDE RECORDS SUMMARY | 2017-02-11 13:55 | External Medical Summary ---
[...] Medications Medication Code Code Instructions Start End Status Dosage System Date Date Clonazepam [facility] [address]-72 0.5 MG Orally 1 tablet Once a day daily, may have 1/2 tablet prn daily Hydrocodone-Matthew [facility] [address]-84 10-325 MG/15ML 1 tablet taminophen Orally QID Paxil [facility] [address]-84 30 MG Orally 2 tablet Once a day in the evening Benztropine [facility] [address]-05 1 MG Orally 1 tablet Mesylate Twice a day Seroquel [facility] [address]-28 400 MG Orally 2 tablet Once a day at bedtime Warfarin Sodium [facility] 62509144452 5 Orally Two 1 tablet times a Week on Saturday and Saturday Lovastatin [facility] [address]-51 20 MG Orally November 01, 1 tablet Once a day 2014 with a meal Procedures Procedure Coding System Code Date PROTIME INR, IN HOUSE CPT-4 64378 Feb 10, 2015 Results No Known Results Summary Purpose eClinicalWorks Submission
--- OUTSIDE RECORDS SUMMARY | 2017-02-11 13:55 | External Medical Summary ---
:1965 Author Organization [employer] Care Team Providers Name Role Phone JimenezPhuong [...] Medications Results No Known Results Summary Purpose [employer] Submission
--- OUTSIDE RECORDS SUMMARY | 2017-02-11 13:55 | External Medical Summary ---
:1965 Author Organization [employer] Care Team Providers Name Role Phone JimenezPhuong [...] Medications Results No Known Results Summary Purpose [employer] Submission
--- OUTSIDE RECORDS SUMMARY | 2017-02-11 13:55 | External Medical Summary ---
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 Problem Chronic fatigue syndrome 780.71 Active Problem Chronic pain syndrome 338.4 Active Assessment Chronic pain syndrome 338.4 Active Problem Other and unspecified coagulation 286.9 Active defects Problem Bipolar disorder, unspecified 296.80 Active Medications Medication Code Code Instructions Start End Date Status [place]os[place] [address]-13 10-325 MG/15ML 1 tablet aminophen 71-07 [place] [address]-05 30 MG Orally 2 tablet in - [place] [address]-06 20 MG Orally November 01, 1 tablet 76-06 Once a day 2014 [place] [address]-08 1 MG Orally 1 tablet Mesylate 00-00 [place] [address]-59 0.5 MG Orally 1 tablet 32-01 Once a day daily, may have 1/2 [place] [address]-97 400 MG Orally 2 tablet at 79-10 [place] [address]-84 5 MG Orally 7.5mg daily 05-01 daily except on Sat and when he takes 10mg Procedures Procedure Coding System Code Date PROTIME INR, IN HOUSE CPT-4 30073 Dec 10, 2014 COMPLETE CBC W/AUTO DIFF WBC CPT-4 43477 Dec 10, 2014 URINALYSIS, IN HOUSE CPT-4 42201 Dec 10, 2014 COMPREHENSIVE METABOLIC PANEL CPT-4 74414 Dec 10, 2014 Vital Signs Date/Time: Dec 10, 2014 Blood Pressure Systolic 110 mm Hg Cardiac Monitoring Heart Rate 120 /min Height 76.25 in Respiratory Rate 16 /min Blood Pressure Diastolic 80 mm Hg Results No Known Results Summary Purpose eClinicalWorks Submission
--- OUTSIDE RECORDS SUMMARY | 2017-02-11 13:55 | External Medical Summary ---
:1965 Author Organization eClinicalWorks Care Team Providers Name Role Phone Juan Pablo Gomes Provider Role Unavailable Allergies, Adverse Reactions, Alerts Substance Reaction Event Type N.K.D.A. 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 Warfarin Sodium [facility] 89685-80 5 MG Orally as take 5mg po 05 directed. daily except saturday//saturday when your take 10mg po daily. Cymbalta [facility] 59469-30 60 MG Orally 2 capsule - Once a day Lovastatin [facility] 40717-48 20 MG Orally November 01 tablet 76-06 Once a day 2014 with a meal Procedures Procedure Coding System Code Date OFFICE VISIT, EST-MOD. COMPLEXITY (25 MIN) CPT-4 54988 Mar 04, 2015 Vital Signs Date/Time: Mar 04, 2015 Height 76.25 in Weight 238.8 lbs Temperature 97.8 F Blood Pressure Diastolic 84 mm Hg Blood Pressure Systolic 110 mm Hg Cardiac Monitoring Heart Rate 102 /min BMI 28.87 Index Oximetry 98 % Respiratory Rate 16 /min Results No Known Results Summary Purpose eClinicalWorks Submission
--- OUTSIDE RECORDS SUMMARY | 2017-02-11 13:55 | External Medical Summary ---
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 33989-37 108 (90 Base) Dec 12, 1 to 2 puffs 51-85 MCG/ACT 2015 as needed Inhalation every for 5 hrs shortness of breath. Cymbalta [facility] 87817-63 60 MG Orally 2 capsule 37-01 [place] [address]-81 1 MG Orally 1 tablet Mesylate 00-00 [place] [address]-63 400 MG Orally 1 tablet in 84-39 Once [place] [address]-05 5 MG Orally as take 5mg 05-01 directed. daily except Wed take 7.5 [place] [address]-19 200 MG Orally August 22, 1 tablet 82-39 every evening 2015 with 400mg to equal 600mg Procedures Procedure Coding System Code Date PROTIME INR, IN HOUSE CPT-4 62581 Dec 13, 2015 OFFICE VISIT, EST-LOW COMPLEXITY (15 MIN.) CPT-4 46527 Dec 13, 2015 Vital Signs Date/Time: Dec 13, 2015 Temperature 98.1 F Height 76.25 in Weight 234.8 lbs Blood Pressure Diastolic 92 mm Hg Blood Pressure Systolic 122 mm Hg Cardiac Monitoring Heart Rate 98 /min BMI 28.39 Index Oximetry 97 % Results No Known Results Summary Purpose eClinicalWorks Submission
--- OUTSIDE RECORDS SUMMARY | 2017-02-11 13:55 | External Medical Summary ---
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 (1 1/2 tabs) Benztropine NDC 81489-62 1 MG Orally 1 tablet Mesylate 00-00 Twice a day Seroquel XR NDC 29232-54 200 MG Orally August 22, 1 tablet 82-39 every evening 2015 with 400mg to equal 600mg Lovastatin NDC 53769-95 20 MG Orally November 01, 1 tablet 76-06 Once a day 2014 with a meal Hydrocodone-Acet NDC 88198-77 10-325 MG/15ML 1 tablet aminophen 71-07 Orally QID Seroquel XR NDC 68783-37 400 MG Orally 1 tablet in 84-39 Once a day the evening Cymbalta NDC 56668-94 60 MG Orally 2 capsule 37-01 Once a day Procedures Procedure Coding System Code Date PROTIME INR, IN HOUSE CPT-4 97876 Nov 21, 2015 Results No Known Results Summary Purpose eClinicalWorks Submission
--- OUTSIDE RECORDS SUMMARY | 2017-02-11 13:55 | External Medical Summary ---
[...] End Status Dosage System Date Date Clonazepam [facility] [address]-38 0.5 MG Orally 1 tablet Once a day daily, may have 1/2 tablet prn daily Lovastatin [facility] [address]-60 20 MG Orally November 01, 1 tablet Once a day 2014 with a meal Paxil [facility] [address]-41 30 MG Orally 2 tablet Once a day in the evening Benztropine [facility] [address]-80 1 MG Orally 1 tablet Mesylate Twice a day Warfarin Sodium [facility] 25293523204 5 Orally Two 1 tablet times a Week on Saturday and Saturday Hydrocodone-Matthew [facility] [address]-16 10-325 MG/15ML 1 tablet taminophen Orally QID Seroquel [facility] [address]-83 400 MG Orally 2 tablet Once a day at bedtime Procedures Procedure Coding System Code Date PROTIME INR, IN HOUSE CPT-4 97029 Jan 27, 2015 Results Name Result Date Reference Range Unit Abnormality Flag In House Protime INR Summary Purpose eClinicalWorks Submission
--- OUTSIDE RECORDS SUMMARY | 2017-02-11 13:55 | External Medical Summary ---
:1965 Author Organization [employer] Care Team Providers Name Role Phone Phuong [...] Date Status Dosage Date Warfarin Sodium NDC 06286-82 10 MG Orally Mar 10, Active 1 tablet 10-01 Once every 2013 evening ///Lazo Seroquel NDC 06386-16 300 MG Orally Active 1 tablet at 74-39 Once a day bedtime Warfarin Sodium NDC 97591-60 7.5 MG Orally Active 1 tablet 75-01 every // evening Hydrocodone-Matthew NDC 67320-00 7.5-325 MG Active 1 tablet taminophen 66-01 Orally tid Paxil NDC 44789-79 30 MG Orally Active 2 tablet in 12-13 Once a day the evening Procedures Procedure Coding System Code Date PROTIME INR, IN HOUSE CPT-4 38351 May 18, 2014 Vital Signs Date/Time: Mar 10, 2014 Height 76.25 inches Weight 258.12 lbs Temperature 98.9 F Blood Pressure Diastolic 86 mm Hg Blood Pressure Systolic 112 mm Hg Cardiac Monitoring Heart Rate 88 Beats per Minute BMI 31.21 Index Respiratory Rate 16 per Minute Results No Known Results Summary Purpose [employer] Submission
--- OUTSIDE RECORDS SUMMARY | 2017-02-11 13:55 | External Medical Summary ---
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 Assessment Coagulation defect, unspecified D68.9 Active Assessment Pneumonia, unspecified organism J18.9 Active Assessment 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 (1 1/2 tabs) Hydrocodone-Acet NDC 65349-90 10-325 MG/15ML 1 tablet aminophen 71-07 Orally QID Procedures Procedure Coding System Code Date COMPLETE CBC W/AUTO DIFF WBC CPT-4 94744 Nov 30, 2015 COMPREHENSIVE METABOLIC PANEL CPT-4 67008 Nov 30, 2015 PROTIME INR, IN HOUSE CPT-4 83900 Nov 30, 2015 PROTIME-INR CPT-4 65434 Nov 30, 2015 Results Name Result Date Reference Range Unit Abnormality Flag CBC With Platelet and Differential ----Immature Granulocytes 0.2 10913659 0.0-1.0 % ----Platelet Count 277 [id number] 150-400 K/uL ----Monocytes 13 54534197 4-11 % H ----HGB 14.8 66162360 14.0-18.0 g/dL ----Lymphocytes 33 82331041 20-46 % ----HCT 42.5 48748581 42.0-52.0 % ----Neutrophils 47 20065890 51-75 % L ----MCV 85.2 76738963 82.0-99.0 fL ----Absolute Basophils 0.06 51604722 0.00-0.20 10*3 ----MCH 29.7 66898246 27.0-32.0 pg ----Absolute Eosinophils 0.38 94966200 0.00-0.50 10*3 ----MCHC 34.8 61412464 32.0-36.0 g/dL ----Eosinophils 6 12659213 0-4 % H ----Absolute Monocytes 0.75 44023626 0.30-1.00 10*3 ----RDW 14.5 29557287 11.5-14.5 % ----Basophils 1 14672697 0-2 % ----WBC 5.9 98594828 4.8-10.8 K/uL ----MPV 9.8 52101634 8.8-14.8 fL ----Absolute Lymphocytes 1.95 48046404 0.80-3.30 10*3 ----RBC 4.99 81521933 4.60-6.20 10*6/uL ----Absolute Neutrophils 2.76 07558982 1.90-7.00 10*3 Protime (INR) ----INR 2.3 16994490 0.9-1.2 H eGFR ----eGFR >60 79079198 >60 mL/min Comprehensive Metabolic Panel (CMP) ----Chloride 104 10385105 99-111 mEq/L ----Potassium 4.7 52352990 3.5-5.2 mEq/L ----Albumin 4.8 94467523 3.5-5.0 g/dL ----CO2 26 84969668 23-31 mEq/L ----Alkaline Phosphatase 67 64841793 40-150 U/L ----Protein 7.6 06691041 6.1-7.7 g/dL ----Bilirubin Total 0.3 06457248 0.2-1.2 mg/dL ----Anion Gap 8 23974215 3-20 ----Calcium 9.6 88694724 8.9-10.5 mg/dL ----Globulin 2.8 21230198 1.8-4.0 g/dL ----Sodium 138 18243635 135-144 mEq/L ----BUN 16 28209450 8-26 mg/dL ----ALT (SGPT) 20 47240424 0-55 U/L ----AST (SGOT) 22 11932055 5-34 U/L ----Creatinine 1.25 46507022 0.72-1.25 mg/dL ----Glucose 81 29837574 70-99 mg/dL Summary Purpose [employer] Submission
--- OUTSIDE RECORDS SUMMARY | 2017-02-11 13:55 | External Medical Summary ---
[...] Start End Date Status Dosage Date Seroquel [facility] 61031-19 400 MG Orally 1 tablet at 79-10 Once a day bedtime Paxil [facility] 89323-74 30 MG Orally 2 tablet in 12-13 Once a day the evening Hydrocodone-Matthew [facility] 27176-03 10-325 MG/15ML 1 tablet taminophen 71-07 Orally QID Warfarin Sodium [facility] 95021-43 7.5 MG Orally 1 tablet 75-01 Two times a Week on Saturday and Saturday *MUST HAVE LABS BFORE NEXT REFILL* Procedures Procedure Coding System Code Date PROTIME INR, IN HOUSE CPT-4 06257 October 14, 2014 Results Name Result Date Reference Range Unit Abnormality Flag In House Protime INR Summary Purpose [employer] Submission
--- OUTSIDE RECORDS SUMMARY | 2017-02-11 13:56 | External Medical Summary ---
:1965 Author Organization [employer] Care Team Providers Name Role Phone Michael Clarkee Provider Role Unavailable Allergies, Adverse Reactions, Alerts Substance Reaction Event Type N.K.D.A. 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 Problem Chronic fatigue syndrome 780.71 Active Problem Bipolar disorder, in partial F31.71 Active remission, most recent episode hypomanic Problem Generalized anxiety disorder F41.1 Active Problem Other and unspecified 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 [address]-01 1 MG Orally 1 tablet Mesylate 00-00 Twice a day Seroquel XR NDC 11635-96 200 MG Orally August 22, 1 tablet 82-39 every evening 2015 with 400mg to equal 600mg Cymbalta NDC 84944-58 60 MG Orally 2 capsule 37-01 Once a day Hydrocodone-Acet NDC 40434-21 10-325 MG/15ML 1 tablet aminophen 71-07 Orally QID Procedures Procedure Coding System Code Date OFFICE VISIT, EST-MOD. COMPLEXITY (25 MIN) CPT-4 72826 August 23, 2015 Vital Signs Date/Time: August 23, 2015 Temperature 98.8 F Height 76.25 in Weight 228.8 lbs Blood Pressure Diastolic 68 mm Hg Blood Pressure Systolic 112 mm Hg Cardiac Monitoring Heart Rate 101 /min BMI 27.67 Index Respiratory Rate 16 /min Results No Known Results Summary Purpose [employer] Submission
--- OUTSIDE RECORDS SUMMARY | 2017-02-11 13:56 | External Medical Summary ---
:1965 Author Organization [employer] Care Team Providers Name Role Phone Jordan Salas Provider Role Unavailable Allergies No Known Allergies Problems Problem Type Condition Code Onset Dates Condition Status Problem Opioid dependence, uncomplicated F11.20 Active Assessment Dental caries, unspecified K02.9 Active Problem Insomnia, unspecified 780.52 Active Problem [...] End Date Status [place] [address]-05 60 MG Orally 2 capsule 37-01 Once a day Hydrocodone-Acet NDC 82702-57 10-325 MG/15ML 1 tablet aminophen 71-07 Orally QID Benztropine NDC 35271-52 1 MG Orally 1 tablet Mesylate 00-00 Twice a day Lovastatin NDC 66014-60 20 MG Orally November 01, 1 tablet 76-06 Once a day 2014 [place] [address]-05 5 MG Orally as take 7.5mg 05- [place] [address]-82 400 MG Orally 1 tablet 79-10 Once a day Procedures Procedure Coding System Code Date RESIN COMPOS - 1 SURFACE POSTERIOR CPT-4 D2391 August 23, 2015 RESIN COMPOS - 1 SURFACE POSTERIOR CPT-4 D2391 August 23, 2015 RESIN COMPOS - 1 SURFACE POSTERIOR CPT-4 D2391 August 23, 2015 RESIN COMPOS - 1 SURFACE POSTERIOR CPT-4 D2391 August 23, 2015 Results No Known Results Summary Purpose [employer] Submission
--- OUTSIDE RECORDS SUMMARY | 2017-02-11 13:56 | External Medical Summary ---
[...] syndrome 338.4 Active Medications No Known Medications Vital Signs Date/Time: Mar 10, 2014 Height 76.25 inches Weight 258.12 lbs Temperature 98.9 F Blood Pressure Diastolic 86 mm Hg Blood Pressure Systolic 112 mm Hg Cardiac Monitoring Heart Rate 88 Beats per Minute BMI 31.21 Index Respiratory Rate 16 per Minute Results No Known Results Summary Purpose [employer] Submission
--- OUTSIDE RECORDS SUMMARY | 2017-02-11 13:56 | External Medical Summary ---
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 68986-426 1 MG Orally 1 tablet Mesylate 0-00 Twice a day Results No Known Results Summary Purpose [employer] Submission
--- OUTSIDE RECORDS SUMMARY | 2017-02-11 13:56 | External Medical Summary ---
[...] of other 286.3 Active clotting factors Problem [facility] (current) use of Z79.01 Active anticoagulants Problem Chronic fatigue syndrome 780.71 Active Medications No Known Medications Results No Known Results Summary Purpose [employer] Submission
--- OUTSIDE RECORDS SUMMARY | 2017-02-11 13:56 | External Medical Summary ---
:1965 Author Organization [employer] Care Team Providers Name Role Phone ClarkeRaven Provider Role Unavailable Allergies, Adverse Reactions, Alerts Substance Reaction Event Type N.K.D.A. Info Not Available Non Drug Allergy Problems Problem Type Condition Code Onset Dates Condition Status Assessment Bipolar disorder, in partial F31.71 Active remission, most recent episode hypomanic Problem Generalized anxiety disorder F41.1 Active Problem Opioid dependence, uncomplicated F11.20 Active Assessment Opioid dependence, uncomplicated F11.20 Active Assessment Generalized anxiety disorder F41.1 Active Problem Chronic fatigue syndrome 780.71 Active Problem Insomnia, unspecified 780.52 Active Problem senior care (current) use of Z79.01 Active anticoagulants Problem Chronic pain syndrome 338.4 Active Problem Bipolar disorder, in partial F31.71 Active remission, most recent episode hypomanic Problem 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 Procedures Procedure Coding System Code Date OFFICE VISIT, EST-LOW COMPLEXITY (15 MIN.) CPT-4 89392 Dec 02, 2015 Vital Signs Date/Time: Dec 02, 2015 Temperature 98.8 F Height 76.25 in Weight 230.8 lbs Blood Pressure Diastolic 72 mm Hg Blood Pressure Systolic 106 mm Hg Cardiac Monitoring Heart Rate 82 /min BMI 27.91 Index Respiratory Rate 16 /min Results No Known Results Summary Purpose [employer] Submission
--- OUTSIDE RECORDS SUMMARY | 2017-02-11 13:56 | External Medical Summary ---
:1965 Author Organization [employer] Care Team Providers Name Role Phone FabiánValentin thayerald Provider Role Unavailable Allergies No Known Allergies [...] of other 286.3 Active clotting factors Problem senior living (current) use of Z79.01 Active anticoagulants Problem Chronic fatigue syndrome 780.71 Active Assessment Encounter for dental examination and Z01.20 Active cleaning without abnormal findings Problem Opioid dependence, uncomplicated F11.20 Active Problem Generalized anxiety disorder F41.1 Active Medications Medication Code Code Instructions Start End Date Status Dosage System Date Seroquel XR [facility] 95307-05 400 MG Orally 1 tablet in 84-39 [place] [address]-90 1 MG Orally 1 tablet Mesylate 00-00 [place] [address]-13 5 MG Orally as take 5mg 05-01 directed. daily except Wed take 7.5 [place] [address]-15 60 MG Orally 2 capsule 37-01 [place] [address]-00 200 MG Orally August 22, 1 tablet 82-39 every evening 2015 with 400mg to equal 600mg ProAir HFA [facility] 12373-94 108 (90 Base) Dec 12, 1 to 2 puffs 51-85 MCG/ACT 2015 as needed Inhalation every for 5 hrs shortness of breath. Procedures Procedure Coding System Code Date LTD ORAL EVALUATION - PROBLEM FOCUS CPT-4 D0140 Jan 30, 2016 Results No Known Results Summary Purpose [employer] Submission
--- OUTSIDE RECORDS SUMMARY | 2017-02-11 13:56 | External Medical Summary ---
:1965 Author Organization [employer] Care Team Providers Name Role Phone JimenezPhuong [...] Medications Results No Known Results Summary Purpose [employer] Submission
--- OUTSIDE RECORDS SUMMARY | 2017-02-11 13:56 | External Medical Summary ---
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 Problem Chronic fatigue syndrome 780.71 Active Problem Retrograde amnesia R41.2 Active Problem Solitary pulmonary nodule R91.1 Active Problem Other irregular eye movements H55.89 Active Problem Bipolar disorder, unspecified F31.9 Active Problem Chronic pain syndrome G89.4 Active Problem Major depressive disorder, single F32.9 Active episode, unspecified Problem Chronic obstructive pulmonary J44.9 Active disease, unspecified Problem Bipolar disorder, in partial F31.71 Active remission, most recent episode hypomanic Problem Chronic pain syndrome 338.4 Active Problem Opioid dependence, uncomplicated F11.20 Active Problem Other and unspecified 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
--- NOTE | 2017-02-11 14:24 | CT Scan Report ---
EXAM: CT abdomen and pelvis with contrast. LOCATION OF DICTATION: [facility] HISTORY: pain, bloating, known colectomy with current colostomy COMPARISON: No prior studies are available for comparison TECHNIQUE: CT images were obtained of the abdomen and pelvis utilizing 100 mL of Omnipaque 240. Coronal and sagittal reformations were utilized. Automated Exposure Control and Iterative Reconstruction dose reducing techniques were utilized. FINDINGS: CT ABDOMEN LUNG BASES: There is mild bilateral linear atelectasis or scarring suggested. LIVER: Unremarkable. SPLEEN: Unremarkable. GALLBLADDER: Unremarkable. PANCREAS: Unremarkable. ADRENAL GLANDS: Unremarkable. KIDNEYS: Unremarkable. AORTA: Unremarkable. LYMPH NODES: Unremarkable. STOMACH BOWEL LOOPS: Dilated fluid containing small bowel loops. There is question of transition point about a small ventral abdominal hernia which could indicate bowel entrapment. Right lower quadrant colostomy site is noted. No free intraperitoneal air. PERITONEAL CAVITY: There is no abdominal pelvic ascites or inflammatory mass. CT PELVIS URINARY BLADDER: Unremarkable. PROSTATE: Prostate and seminal vesicles are normal. OSSEOUS STRUCTURES: There is mild spondylosis of the thoracolumbar spine. Impression 1. Dilated fluid containing small bowel loops with possible transition point in the ventral abdominal wall hernia suggesting entrapment. The distal small bowel loops and colon are decompressed. There is no free intraperitoneal air. Right lower quadrant colostomy site is demonstrated. .
[2017-02-11] MEDS ORDERED: ONDANSETRON 4 MG/2 ML INJECTION IVP PRN (15:44)
[2017-02-11 15:48] VITALS: BMI 27.8
--- NOTE | 2017-02-11 15:50 | History & Physical Report ---
<Zuly Michelle - Last Filed: 02/11/17 16:31> History of Present Illness Date: 02/11/17 Chief complaint: abdominal pain HPI: Patient is a 51 yo M who was sent to the ED from his PCP's office (Dr Gomes) with a 3 day h/o of progressive nausea and abdominal pain. Patient had a bowel perforation in 2015 and has a colostomy in the right lower quadrant. He tells me that on 02/06/17 he went in for testing in [place] for a gastrographin enema and reports he was told it was normal. He states he is scheduled for reversal of the colostomy on March 01. Unable to remember the name of his surgeon. States 3 days ago he noticed cramping and didn't have much of an appetite. Over the weekend this worsened. He states he's been able to drink plenty of fluids but the fluids flow straight to his bag. He feels very dehydrated. He last ate solid food yesterday morning. Current pain 08/29. Patient had a normal renal sono in November d/t worsening renal function, but, per Dr. Gomes, he was found to be taking too much ibuprofen and once he decreased his dose, the renal function improved. On admission, his creatinine was 2.8. Review of Systems All systems PM: 10-point ROS was reviewed, no additional remarkable complaints except - Constitutional Constitutional: Present: chills (and sweats), weakness. Absent: fever(s) - Cardiovascular Vascular: Present: pedal edema (usually has swelling in the RLE) - Respiratory Respiratory: Present: dyspnea. Absent: cough - Gastrointestinal Gastrointestinal: Present: abdominal pain, nausea, vomiting. Absent: constipation - Neurological Neurological: Present: headache(s), weakness - Psychiatric Psychiatric: Present: anxiety, depression PFSH Medical history Chronic pain Bipolar disorder Generalized anxiety disorder Attention deficit disorder Chronic fatigue syndrome Chronic venous insufficiency Fibromyalgia Chronic anticoagulation for factor V Leiden Colostomy secondary to bowel perforation March 2016 Surgical History: Colostomy secondary to bowel perforation 04/06. Patient reports part of his lung was removed due to pulmonary embolus. colonoscopy ( neg x mild internal hemorrhoids) and 2.5cm sebaceous cyst removal from back ( Dr. Varela 02/17/15) Family History: Father lymphoma Mother is living. Has diabetes and recurrent UTI Aunt committed suicide Brother of AIDS - Social History Smoking status: Current some day smoker (states he smokes a pipe as a "hobby" - not daily) Substance use type: does not use Alcohol intake frequency: does not drink Housing: house Household members: other (currently staying with an elderly man to help care for him, but usually lives at home with his mom and step-dad) Current occupational status: disabled Social history: PCP-Dr. Davey Gomes Psych - Lorelei Arguello at [facility] Medications Home Medications Medication Instructions Recorded Confirmed Type Quetiapine Fumarate [Seroquel Xr] 800 mg PO HS #0 09/22/15 02/11/17 History Warfarin Sodium 5 mg PO SUMOWEFRSA@1800 #0 09/22/15 02/11/17 History Benztropine Mesylate 0.5 mg PO BID 01/18/17 02/11/17 History L-Methylfolate 1 tab PO DAILY 01/18/17 02/11/17 History Pregabalin Cap [Lyrica] 150 mg PO TID 01/18/17 02/11/17 History Sertraline [Zoloft] 200 mg PO DAILY 01/18/17 02/11/17 History Trazodone [Desyrel] 100 mg PO TID PRN 01/18/17 02/11/17 History Warfarin Sodium 7.5 mg PO TUTH@1800 01/18/17 02/11/17 History Brexpiprazole [Rexulti] 2 mg PO DAILY 02/11/17 02/11/17 History Allergies Allergy/AdvReac Type Severity Reaction Status Date / Time No Known Drug Allergies Allergy Unknown Verified 02/11/17 12:23 Exam Vital Signs: Temperature 97.9 F 02/11/17 12:23 Pulse Rate 98 02/11/17 15:12 Respiratory Rate 20 02/11/17 12:23 Blood Pressure 105/80 02/11/17 15:15 Pulse Oximetry 97 02/11/17 15:18 - Constitutional Present: mild distress, well nourished, well developed - Routine HEENT Exam Head: Present: normocephalic, atraumatic Eye: Present: EOMI, PERRL ENT: Present: mucous membranes dry, oropharynx clear - Routine Neck Exam Present: supple, full ROM. Absent: lymphadenopathy, thyromegaly - Routine Respiratory Exam Present: CTA bilaterally. Absent: wheezes - Routine Cardiovascular Exam Present: RRR, S1, S2. Absent: murmur - Routine Abdominal Exam Present: soft, tenderness (diffuse), non distended, surgical scars (midline), ostomy (RLQ). Absent: normoactive bowel sounds (hypoactive), organomegaly, mass - Routine Extremities Exam Present: no edema, normal capillary refill - Routine Skin Exam Present: dry, warm - Routine Neurological Exam Present: alert, oriented X3, CN II-XII intact - Routine Psychiatric Exam Present: normal affect, cooperative Results - Labs CBC & Chem 7: 02/11/17 13:16 02/11/17 13:16 - Imaging and Cardiology CT scan - abdomen Additional comments: Date of Exam: 02/11/17 Reason for Exam(s): pain, bloating, known colectomy with current colostomy EXAM: CT abdomen and pelvis with contrast. HISTORY: pain, bloating, known colectomy with current colostomy FINDINGS: CT ABDOMEN LUNG BASES: There is mild bilateral linear atelectasis or scarring suggested. LIVER: Unremarkable. SPLEEN: Unremarkable. GALLBLADDER: Unremarkable. PANCREAS: Unremarkable. ADRENAL GLANDS: Unremarkable. KIDNEYS: Unremarkable. AORTA: Unremarkable. LYMPH NODES: Unremarkable. STOMACH BOWEL LOOPS: Dilated fluid containing small bowel loops. There is question of transition point about a small ventral abdominal hernia which could indicate bowel entrapment. Right lower quadrant colostomy site is noted. No free intraperitoneal air. PERITONEAL CAVITY: There is no abdominal pelvic ascites or inflammatory mass. CT PELVIS URINARY BLADDER: Unremarkable. PROSTATE: Prostate and seminal vesicles are normal. OSSEOUS STRUCTURES: There is mild spondylosis of the thoracolumbar spine. Impression 1. Dilated fluid containing small bowel loops with possible transition point in the ventral abdominal wall hernia suggesting entrapment. The distal small bowel loops and colon are decompressed. There is no free intraperitoneal air. Right lower quadrant colostomy site is demonstrated. Assessment and Plan DVT Prophylaxis: SCD's, Coumadin (takes for Leiden factor 5) Resuscitation Status: Full Code Assessment and Plan: Assessment Abdominal pain secondary to possible small bowel obstruction with entrapment in ventral hernia Status post bowel perforation with colostomy (March 2016) Acute kidney injury Leukocytosis - POA Chronic pain Bipolar disorder Generalized anxiety disorder Attention deficit disorder Chronic fatigue syndrome Chronic venous insufficiency Fibromyalgia Chronic anticoagulation for Leiden factor V deficiency Plan Admit to observation under the hospitalist service, Dr. Valentino attending. Based on his presentation of abdominal pain with h/o colostomy, in addition to his MOIRA, suspect his stay with exceed two overnights. IV fluids for rehydration and acute kidney injury. BMP in a.m. to follow electrolytes and renal function. Monitor CBC to follow leukocytosis. Morphine and Zofran as needed for pain and nausea. Consult Dr. Varela re: possible entrapment of bowel in ventral hernia. NPO and hold warfarin in the event he needs surgical intervention. SCDs for DVT prophylaxis. Patient wishes to be a full code. His DPOA-H is his mother, Sofia Arenas [phone] Care to return to his PCP, Dr. Juan Pablo Gomes, after dismissal. Hospital Course Summary Disclaimer: The visit summary below is not to be considered part of the above Progress Note. 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 Valentino attending. Based on his presentation of abdominal pain with h/o colostomy, in addition to his MOIRA, suspect his stay with exceed two overnights. IV fluids for rehydration and acute kidney injury. BMP in a.m. to follow electrolytes and renal function. Monitor CBC to follow leukocytosis. Morphine and Zofran as needed for pain and nausea. Consult Dr. Varela re: possible entrapment of bowel in ventral hernia. NPO and hold warfarin in the event he needs surgical intervention. SCDs for DVT prophylaxis. Patient wishes to be a full code. His DPOA-H is his mother, Sofia Arenas Care to return to his PCP, Dr. Juan Pablo Gomes, after dismissal. <Osmani Valentino - Last Filed: 02/11/17 17:32> History of Present Illness Date: 02/11/17 Exam Vital Signs: Temperature 96.8 F 02/11/17 15:47 Pulse Rate 97 02/11/17 15:47 Respiratory Rate 16 02/11/17 15:47 Blood Pressure 123/86 02/11/17 15:47 Pulse Oximetry 97 02/11/17 15:47 Height/Weight/BMI: Height 1.91 m Weight 100.8 kg Body Mass Index 27.8 Results - Labs CBC & Chem 7: 02/11/17 13:16 02/11/17 13:16 Assessment and Plan Assessment and Plan: Assessment Small bowel obstruction - possible entrapment in ventral hernia Abdominal pain secondary to possible small bowel obstruction with entrapment in ventral hernia Status post bowel perforation with colostomy (March 2016) Acute kidney injury Stage III CKD Leukocytosis - POA Chronic pain Bipolar disorder Generalized anxiety disorder Attention deficit disorder Chronic fatigue syndrome Chronic venous insufficiency Fibromyalgia Chronic anticoagulation for Leiden factor V deficiency Have independently interviewed and examined pt. Chart reviewed. Cased discussed with ED provider and my PA. Care plan developed with my supervision; agree with above. Rough past 3 days. Has been having increased ab pain and nausea. Appetite very decreased-not feeling hungry or wanting to eat. About all food intake he had over this time was some eggs. Trying to drink water. Notes decreased urine output. More weak and tired. Not sleeping well due to the pain; cannot get comfortable. Breathing stable-no cough/congestion. Notes chills at times, uncertain if having a temperature elevation. Lungs: clear bilaterally CV: regular AB: soft, distended. Diffusely tender. BS decreased. MSE: awake alert appropriate GEN: looks uncomfortable. Plan: Inpatient admission for treatment of small bowel obstruction - concern for obstruction of small bowel in ventral hernia. NPO for bowel rest. Consult with surgery due to Small Bowel Obstruction. IVF of NS at 125cc/hr for hydration and to help renal status. Hold Coumadin in case of need for surgery. Control pain and nausea. Monitor lab. Hospital Course Summary Disclaimer: The visit summary below is not to be considered part of the above Progress Note.
[2017-02-11] MEDS: NS 1,000 ML IV SCH ×3 (16:04→23:42)
[2017-02-11] MEDS: MORPHINE SULFATE 2mg INJECTION IVP PRN ×2 (16:57→21:12)
[2017-02-11] MEDS: BENZTROPINE 1 MG TABLET PO SCH (21:06)
[2017-02-11] MEDS: TRAZODONE 100 MG TABLET PO PRN (22:00)
[2017-02-12] MEDS: NS 1,000 ML IV SCH (08:17)
[2017-02-12] MEDS ORDERED: PREGABALIN 75 MG CAPSULE PO SCH (09:00)
[2017-02-12] MEDS: SERTRALINE 100 MG TABLET PO SCH (10:04)
[2017-02-12] MEDS: BENZTROPINE 1 MG TABLET PO SCH ×2 (10:04→20:25)
[2017-02-12] MEDS: PREGABALIN 150 MG CAPSULE PO SCH ×2 (10:04→20:25)
[2017-02-12] MEDS: MORPHINE SULFATE 2mg INJECTION IVP PRN ×2 (10:05→13:44)
--- NOTE | 2017-02-12 11:32 | General Surgery Consult Note ---
Consult date: 02/12/17 Attending Physician: Osmani Valentino MD Reason for consult: other (abdpain, possible SBO d/t entrapmt ventral hernia) [facility] Medical History Updates: Chronic pain. Bipolar disorder. Generalized anxiety disorder. Attention deficit disorder. Chronic fatigue syndrome. Chronic venous insufficiency. Chronic kidney disease - unknown stage but has been at least stage III in the past. Fibromyalgia. Hypercoaguable state due to Factor V Leiden deficiency. Multilple DVTs - beginning in 1992. Pulmonary embolus - 2010 in [place] when he was off of blood thinners. Superficial thrombosis of the left medial thigh - 11/23/2014. Chronic anticoagulation for factor V Leiden. Bowel perforation . Hypercholesterolemia Surgical History: Unknown bowel surgery with ostomy formation due to bowel perforation -04/20/2016 at [facility]. Patient reports surgery for removal of pulmonary emboli from lungs. Total colonoscopy (negative except mild internal hemorrhoids) and excision of 2.5cm sebaceous cyst from back - by Dr. Varela at [facility] in [place], [place]. Family History Updates: Father lymphoma, clotting issues. Mother is living. Has diabetes and recurrent UTI, HTN, hypercholesterolemia. Aunt - committed suicide. Brother of AIDS. Maternal Grandmother, - diabetes. Maternal grandfather, - aneurysm. Paternal grandmother, - clotting disorder, HTN - Social History Smoking status: Current some day smoker (states he smokes a pipe as a "hobby" - not daily) Substance use type: does not use Alcohol intake frequency: does not drink Housing: house Household members: other (usually lives with mother and step-father, currently with an elderly gentleman to provider care to the man) Medications Home Medications Medication Instructions Recorded Confirmed Type Quetiapine Fumarate [Seroquel Xr] 800 mg PO HS #0 09/22/15 02/11/17 History Warfarin Sodium 5 mg PO SUMOWEFRSA@1800 #0 09/22/15 02/11/17 History Benztropine Mesylate 0.5 mg PO BID 01/18/17 02/11/17 History L-Methylfolate 1 tab PO DAILY 01/18/17 02/11/17 History Pregabalin Cap [Lyrica] 150 mg PO TID 01/18/17 02/11/17 History Sertraline [Zoloft] 200 mg PO DAILY 01/18/17 02/11/17 History Trazodone [Desyrel] 100 mg PO TID PRN 01/18/17 02/11/17 History Warfarin Sodium 7.5 mg PO TUTH@1800 01/18/17 02/11/17 History Brexpiprazole [Rexulti] 2 mg PO DAILY 02/11/17 02/11/17 History Allergies Allergy/AdvReac Type Severity Reaction Status Date / Time No Known Drug Allergies Allergy Unknown Verified 02/11/17 12:23 Review of Systems 10-point ROS: negative except for HPI and the following: - Cardiovascular Cardiovascular: Present: edema/swelling - Musculoskeletal Musculoskeletal: Present: neck pain, back pain, joint pain - Psychiatric Psychiatric: Present: anxiety, depression, other (bipolar disorder) - Hematologic/Lymphatic Hematologic/Lymphatic: Present: bleeding disorder, use of blood thinners - Vital Signs Last Vital Signs Temp 96.5 F L 02/12/17 08:10 Pulse 84 02/12/17 08:10 Resp 18 02/12/17 08:10 BP 103/76 02/12/17 08:10 Pulse Ox 96 02/12/17 08:10 - Laboratory Result Diagrams: 02/12/17 04:00 02/12/17 04:00 Hospital Course Summary Disclaimer: The visit summary below is not to be considered part of the above Progress Note. 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 Valentino attending. Based on his presentation of abdominal pain with h/o colostomy, in addition to his MOIRA, suspect his stay with exceed two overnights. IV fluids for rehydration and acute kidney injury. BMP in a.m. to follow electrolytes and renal function. Monitor CBC to follow leukocytosis. Morphine and Zofran as needed for pain and nausea. Consult Dr. Varela re: possible entrapment of bowel in ventral hernia. NPO and hold warfarin in the event he needs surgical intervention. SCDs for DVT prophylaxis. Patient wishes to be a full code. His DPOA-H is his mother, Sofia Arenas Care to return to his PCP, Dr. Juan Pablo Gomes, after dismissal.
[2017-02-12] MEDS: BREXPIPRAZOLE 2 MG PO SCH (11:55)
--- NOTE | 2017-02-12 12:11 | Progress Note ---
<Payal Patel D - Last Filed: 02/12/17 13:12> - Date 02/12/17 Subjective: Iain's abdominal pain is a little better today. He states that his nausea has improved today as well. He feels weak or dizzy, and thinks this is from not eating for the last several days. No chest pain or SOA. Objective Vital signs: Temperature 96.5 F L 02/12/17 08:10 Pulse Rate 84 02/12/17 08:10 Respiratory Rate 18 02/12/17 08:10 Blood Pressure 103/76 02/12/17 08:10 Pulse Oximetry 96 02/12/17 08:10 Height/Weight/BMI: Height 1.91 m Weight 102.5 kg Body Mass Index 27.8 - Constitutional Present: no acute distress, well nourished, well developed - Routine HEENT Exam Eye: Absent: conjunctival icterus ENT: Present: mucous membranes dry - Routine Respiratory Exam Present: CTA bilaterally - Routine Cardiovascular Exam Present: RRR, S1, S2 - Routine Abdominal Exam Present: soft, tenderness (diffuse). Absent: normoactive bowel sounds ( hypoactive) - Routine Extremities Exam Present: no edema - Routine Skin Exam Present: intact, dry, warm - Routine Neurological Exam Present: alert, oriented X3 - Routine Psychiatric Exam Present: normal affect, normal thought process, cooperative Results - Labs CBC & Chem 7: 02/12/17 04:00 02/12/17 04:00 Assessment and Plan (1) Small bowel obstruction Current visit: Yes Status: Acute Assessment and Plan: Assessment Small bowel obstruction - possible entrapment in ventral hernia Abdominal pain secondary to possible small bowel obstruction with entrapment in ventral hernia Status post bowel perforation with colostomy (March 2016) Acute kidney injury Hypokalemia Stage III CKD Leukocytosis - POA Chronic pain Bipolar disorder Generalized anxiety disorder Attention deficit disorder Chronic fatigue syndrome Chronic venous insufficiency Fibromyalgia Chronic anticoagulation for Leiden factor V deficiency Plan Na increasing; K down to 3.4 - Change IVF to 1/2NS with KCl. Renal function improving. D/W Dr. Varela - will check KUB; barium study today. Needing IV morphine on 2-hour intervals frequently for pain control. DVT Prophylaxis: SCD's GI Prophylaxis: Protonix Resuscitation Status: Full Code Hospital Course Summary Disclaimer: The visit summary below is not to be considered part of the above Progress Note. 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 Valentino attending. Based on his presentation of abdominal pain with h/o colostomy, in addition to his MOIRA, suspect his stay with exceed two overnights. IV fluids for rehydration and acute kidney injury. BMP in a.m. to follow electrolytes and renal function. Monitor CBC to follow leukocytosis. Morphine and Zofran as needed for pain and nausea. Consult Dr. Varela re: possible entrapment of bowel in ventral hernia. NPO and hold warfarin in the event he needs surgical intervention. SCDs for DVT prophylaxis. Patient wishes to be a full code. His DPOA-H is his mother, Sofia Arenas Care to return to his PCP, Dr. Juan Pablo Gomes, after dismissal. 02/12/17 Na increasing; K down to 3.4 - Change IVF to 1/2NS with KCl. Renal function improving. D/W Dr. Varela - will check KUB; barium study today. Needing IV morphine on 2-hour intervals frequently for pain control. <Osmani Valentino - Last Filed: 02/12/17 16:27> - Date 02/12/17 Objective Vital signs: Temperature 96.5 F L 02/12/17 08:10 Pulse Rate 84 02/12/17 08:10 Respiratory Rate 18 02/12/17 08:10 Blood Pressure 103/76 02/12/17 08:10 Pulse Oximetry 96 02/12/17 08:10 Height/Weight/BMI: Height 1.91 m Weight 102.5 kg Body Mass Index 27.8 Results - Labs CBC & Chem 7: 02/12/17 04:00 02/12/17 04:00 Assessment and Plan (1) Small bowel obstruction Current visit: Yes Status: Acute Assessment and Plan: Assessment Small bowel obstruction - possible entrapment in ventral hernia Abdominal pain secondary to possible small bowel obstruction with entrapment in ventral hernia Status post bowel perforation with colostomy (March 2016) Acute kidney injury Hypokalemia (Not POA) Hyperphosphatemia (POA) Hypercalcemia (POA) Stage III CKD Leukocytosis - POA Chronic pain Bipolar disorder Generalized anxiety disorder Attention deficit disorder Chronic fatigue syndrome Chronic venous insufficiency Fibromyalgia Chronic anticoagulation for Leiden factor V deficiency Have independently interviewed and examined pt. Chart reviewed. Case discussed with my CORE SUCKER. Care plan developed with my supervision; agree with above. Doing fair today. Nausea much less. Starting to get some appetite back (can watch TV commercials for food and not feel sick at stomach). Pain still present- MS not helping much. Notes ab spasms and cramps less. Less ostomy output. Urine output increasing. Breathing stable. Still feels weak and washed out. Lungs: clear, no distress on RA CV: regular AB: soft slight distention, mild/diffuse tenderness. BS not present MSE: awake alert appropriate Lab: reviewed. Creatinine showing decrease. Potassium decreased. WBC normal. Plan: Continue bowel rest. Change IVF to 1/2NS with potassium. Change MS to Dilaudid for better pain control. Monitor lab. Coumadin on hold - recheck INR in am. Time spent with patient care 25 minutes. - Time spent with patient Time with patient PN: 25 minutes Hospital Course Summary Disclaimer: The visit summary below is not to be considered part of the above Progress Note.
[2017-02-12] MEDS ORDERED: NS with KCL 20 mEq 1,000 ML IV SCH (13:30)
--- NOTE | 2017-02-12 13:41 | XRay Report ---
Indication: Follow SBO XR KUB w upright: Comparison: CT abdomen pelvis 02/11/2017 Technique: Supine and erect films of the abdomen Findings: Patient shows contrast material in the large bowel secondary to recent CT study. Patient shows moderate prominence of bowel loops particularly loops of small bowel as mentioned on the recent CT study for patient to have a high-grade small bowel obstruction. Some contrast has reached the large bowel. It does not seem is prominently distended as the small bowel. Patient shows an IVC filter in place. No free air identified. Impression: Continued disproportionate dilatation of several loops of small bowel similar to that described on the CT study consistent with at least a partial small bowel obstruction. No free air identified. .
[2017-02-12] MEDS: 1/2 NS with KCL 20mEq 1,000 ML IV SCH ×2 (14:23→23:06)
[2017-02-12] MEDS: PANTOPRAZOLE 40 MG INJECTION IVP SCH (14:23)
--- NOTE | 2017-02-12 15:39 | Consultation ---
DATE OF CONSULTATION 02/12/2017 CONSULTING PHYSICIAN Evan Varela MD REQUESTING PHYSICIAN Osmani Valentino MD REASON FOR CONSULTATION Abdominal pain, possible small bowel obstruction due to entrapment within ventral hernia. IMPRESSION 1. 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 He does continue to have ostomy output and symptoms have improved some since admission. 2. Unknown ostomy but this appears to be a diverting loop ileostomy in the right lower quadrant. He has a scheduled ileostomy takedown in [place] on 03/01 by an unknown surgeon. 3. Hypercoagulable state due to Factor V Leiden deficiency. 4. Chronic Coumadin anticoagulation for hypercoagulable state - currently therapeutic on his INR. RECOMMENDATIONS 1. I will order a recheck KUB today to see if his bowel obstruction is showing any radiographic evidence of improvement. 2. When it is determined to be clinically appropriate, since his obstruction is only a partial obstruction, I think a Gastrografin small bowel follow through would be a reasonable plan to see if he does have adequate transit time for his small bowel to the ostomy. He may have a partial obstruction but if he clinically is doing well, he may be able to be advanced on his diet and be dismissed from [facility] to proceed with this scheduled surgery down in [place]. 3. Hold Coumadin until plan can be further determined. He is not currently an operative candidate because of his elevated INR. He will need to be on Lovenox once his INR has decreased to a subtherapeutic range. HISTORY OF PRESENT ILLNESS Iain is known to my surgical practice from prior colonoscopy in January 2015. Since my last evaluation, he had an unknown surgical procedure due to ruptured bowel. The patient said that he thought it was related to severe constipation. He is unsure of who his surgeon was but he says that his procedure was performed at [facility] on 04/20/2016. He recently was evaluated for colostomy reversal and has his procedure scheduled for 2016. He had had a Gastrografin enema six days ago to evaluate the colon. Two days after that, on Saturday morning he developed some abdominal pain. He got to the point of having dry heaves and some nausea. He was still taking liquid intake but he felt like he had liquid output from his ostomy as soon as he had oral intake. He has had some weight loss due to poor oral intake. He had developed some abdominal pain throughout the abdomen. He also complained of some bloating. His pain was described as cramping, aching, and sharp. It was constant. His pain has improved since. PAST MEDICAL HISTORY, PAST SURGICAL HISTORY, ALLERGIES, MEDICATIONS, SOCIAL HISTORY, FAMILY HISTORY, REVIEW OF SYSTEMS, VITAL SIGNS See electronic consultation note. PHYSICAL EXAMINATION GENERAL: The patient is awake and alert, in no acute distress. HEENT: Sclerae clear. Extraocular muscles intact. NECK: Supple with a midline trachea. No lymphadenopathy or thyromegaly are noted. HEART: Regular rate and rhythm. LUNGS: Clear to auscultation bilaterally. ABDOMEN: Soft, minimally tender diffusely. His abdomen is possibly slightly distended. No masses are noted. Palpation around his ostomy is difficult. The mucosa is pink and perfused. It appears to be a loop ileostomy configuration. He does have some semi-formed and liquid output within his ostomy bag. His midline incision is well healed except for an incisional hernia around the area of the umbilicus that is reducible. IMAGING CT scan the abdomen and pelvis was personally reviewed. There is a parastomal hernia in the right lower quadrant which does appear to be serving as a transition for his bowel obstruction with dilated bowel proximally. There is contrast throughout the colon. LABORATORY DATA White blood cell count was 12.0 on admission and decreased to 7.5 today. He has no left shift currently. INR was 2.24 on admission and remains stable at 2.22 this morning. Creatinine was 2.8 on admission and decreased to 2.2. Thank you for allowing me to participate in Iain's care again. I will follow along with you. GABRIELLA
[2017-02-12] MEDS ORDERED: FALL RISK - PHARMACY CONSULT XX ONE (17:48)
[2017-02-12] MEDS ORDERED: INFLUENZA VAC QIV 2017-18 (Fluarix*)(>=3yo) 0.5ml IM ONE (18:00)
[2017-02-12] MEDS ORDERED: INFLUENZA VAC. INJ. ADMIN CHARGE INJ ONE (18:09)
[2017-02-12] MEDS: HYDROMORPHONE 2 MG/ML INJECTION IVP PRN ×2 (18:11→21:09)
[2017-02-12] MEDS: TRAZODONE 100 MG TABLET PO PRN (20:25)
[2017-02-13] MEDS: 1/2 NS with KCL 20mEq 1,000 ML IV SCH ×3 (03:50→18:37)
[2017-02-13] MEDS: HYDROMORPHONE 2 MG/ML INJECTION IVP PRN ×5 (04:03→21:38)
[2017-02-13] MEDS: BENZTROPINE 1 MG TABLET PO SCH ×2 (09:16→21:01)
[2017-02-13] MEDS: PANTOPRAZOLE 40 MG INJECTION IVP SCH (09:16)
[2017-02-13] MEDS: PREGABALIN 150 MG CAPSULE PO SCH ×2 (09:17→21:01)
[2017-02-13] MEDS: BREXPIPRAZOLE 2 MG PO SCH (09:17)
[2017-02-13] MEDS: SERTRALINE 100 MG TABLET PO SCH (09:17)
--- NOTE | 2017-02-13 11:51 | Progress Note ---
<Stephanie Nolasco V - Last Filed: 02/13/17 11:47> - Date 02/13/17 Subjective: Iain is seen in follow up today without complaints. Abdominal pain is decreased overall he feels that he is having normal amount of stool out his ostomy. Denies having nausea or vomiting. Vital signs normal. Objective Vital signs: Temperature 97.7 F 02/13/17 07:49 Pulse Rate 87 02/13/17 07:49 Respiratory Rate 14 02/13/17 07:49 Blood Pressure 112/74 02/13/17 07:49 Pulse Oximetry 92 02/13/17 07:49 Height/Weight/BMI: Height 1.91 m Weight 99.5 kg Body Mass Index 27.8 - Constitutional Present: no acute distress, well nourished, well developed - Routine HEENT Exam Eye: Present: EOMI ENT: Present: mucous membranes moist, dentition normal - Routine Respiratory Exam Present: CTA bilaterally. Absent: wheezes - Routine Cardiovascular Exam Present: RRR, S1, S2. Absent: murmur - Routine Abdominal Exam Present: soft, non distended. Absent: normoactive bowel sounds (hypoactive ), tenderness - Routine Extremities Exam Present: normal capillary refill - Routine Back/Spine/Pelvis Exam Back/Spine: Present: full ROM - Routine Skin Exam Present: intact, dry, warm - Routine Neurological Exam Present: alert, oriented X3, CN II-XII intact - Routine Lymphatic Exam Lymphatic: Absent: adenopathy - Routine Psychiatric Exam Present: normal affect, cooperative Results - Labs CBC & Chem 7: 02/13/17 03:57 02/13/17 03:57 Assessment and Plan (1) Small bowel obstruction Current visit: Yes Status: Acute Assessment and Plan: Assessment Small bowel obstruction - possible entrapment in ventral hernia Abdominal pain secondary to possible small bowel obstruction with entrapment in ventral hernia Status post bowel perforation with colostomy (March 2016) Acute kidney injury Hypokalemia (Not POA) Hyperphosphatemia (POA) Hypercalcemia (POA) Stage III CKD Leukocytosis - POA Chronic pain Bipolar disorder Generalized anxiety disorder Attention deficit disorder Chronic fatigue syndrome Chronic venous insufficiency Fibromyalgia Chronic anticoagulation for Leiden factor V deficiency Plan Coumadin remains on hold currently. Will likely need to be placed on Lovenox once it is determitend he will not urgently need surgery Continue with IV fluids for hydration. Renal function is improving and Collar Turner 1.6 Dilaudid for pain determined Appreciate surgical consultation by Dr Varela Hospital Course Summary Disclaimer: The visit summary below is not to be considered part of the above Progress Note. 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 Valentino attending. Based on his presentation of abdominal pain with h/o colostomy, in addition to his MOIRA, suspect his stay with exceed two overnights. IV fluids for rehydration and acute kidney injury. BMP in a.m. to follow electrolytes and renal function. Monitor CBC to follow leukocytosis. Morphine and Zofran as needed for pain and nausea. Consult Dr. Varela re: possible entrapment of bowel in ventral hernia. NPO and hold warfarin in the event he needs surgical intervention. SCDs for DVT prophylaxis. Patient wishes to be a full code. His DPOA-H is his mother, Sofia Arenas [phone] Care to return to his PCP, Dr. Juan Pablo Gomes, after dismissal. 02/12/17 Na increasing; K down to 3.4 - Change IVF to 1/2NS with KCl. Renal function improving. D/W Dr. Varela - will check KUB; barium study today. Needing IV morphine on 2-hour intervals frequently for pain control. 02/13/17- Plan Coumadin remains on hold currently. Will likely need to be placed on Lovenox once it is determitend he will not urgently need surgery Continue with IV fluids for hydration. Renal function is improving and Collar Turner 1.6 Dilaudid for pain determined Appreciate surgical consultation by Dr Varela <Osmani Valentino D - Last Filed: 02/13/17 14:58> - Date 02/13/17 Objective Vital signs: Temperature 97.7 F 02/13/17 07:49 Pulse Rate 87 02/13/17 07:49 Respiratory Rate 14 02/13/17 07:49 Blood Pressure 112/74 02/13/17 07:49 Pulse Oximetry 92 02/13/17 07:49 Height/Weight/BMI: Height 1.91 m Weight 99.5 kg Body Mass Index 27.8 Results - Labs CBC & Chem 7: 02/13/17 03:57 02/13/17 03:57 Assessment and Plan (1) Small bowel obstruction Current visit: Yes Status: Acute Assessment and Plan: Assessment Small bowel obstruction - possible entrapment in ventral hernia Abdominal pain secondary to possible small bowel obstruction with entrapment in ventral hernia Status post bowel perforation with colostomy (March 2016) Acute kidney injury Hypokalemia (Not POA) Hyperphosphatemia (POA) Hypercalcemia (POA) Stage III CKD Leukocytosis - POA Chronic pain Bipolar disorder Generalized anxiety disorder Attention deficit disorder Chronic fatigue syndrome Chronic venous insufficiency Fibromyalgia Chronic anticoagulation for Leiden factor V deficiency Have independently interviewed and examined pt. Chart reviewed. Case discussed with CM, Dr Varela, and my ROCKET MOTOR MECHANIC. Care plan developed with my supervision; agree with above. Feeling better. Still has ab pain, but decreasing. Rare episodes of nausea (no emesis). Appetite increasing-feeling more hungry. Notes less output from his ostomy. Urinating well-increased urine output since IVF started. Breathing well- no SOA, cough, or congestion. Feels less weak and washed out. Not feeling dizzy or unsteady when up and ambulatory. Lungs: clear, no distress on RA CV: regular AB: soft, mild diffuse tenderness. BS hypoactive, but more active than yesterday. MSE: awake alert appropriate Plan: SBFT ordered by Dr Varela to further assess the status of his bowel obstruction. Will continue with IVF for support. Renal status and electrolytes improved. Encourage ambulation. Continue with supportive care. DVT Prophylaxis: SCD's Resuscitation Status: Full Code Hospital Course Summary Disclaimer: The visit summary below is not to be considered part of the above Progress Note.
[2017-02-13] MEDS ORDERED: DIATRIZOATE MEGLUMINE/SOD. (66%/10%) 120ml SOLN ONE (15:41)
[2017-02-13] MEDS ORDERED: ENOXAPARIN 100 MG/ML INJECTION SQ ONE (18:30)
[2017-02-14] MEDS: HYDROMORPHONE 2 MG/ML INJECTION IVP PRN ×4 (00:53→15:18)
[2017-02-14] MEDS: 1/2 NS with KCL 20mEq 1,000 ML IV SCH ×4 (02:25→17:56)
[2017-02-14] MEDS: PANTOPRAZOLE 40 MG INJECTION IVP SCH (09:15)
[2017-02-14] MEDS: SALINE FLUSH 10ml SYRINGE IVF PRN (09:15)
[2017-02-14] MEDS: BREXPIPRAZOLE 2 MG PO SCH (09:16)
[2017-02-14] MEDS: BENZTROPINE 1 MG TABLET PO SCH ×2 (09:16→21:04)
[2017-02-14] MEDS: PREGABALIN 150 MG CAPSULE PO SCH ×2 (09:16→21:04)
[2017-02-14] MEDS: SERTRALINE 100 MG TABLET PO SCH (09:16)
--- NOTE | 2017-02-14 11:32 | Progress Note ---
<Stephanie Nolasco V - Last Filed: 02/14/17 11:19> - Date 02/14/17 Subjective: Iain is seen today in follow up while resting in bed. He had a difficult night following the SBFT with frequent output through the ostomy. He does report mild nausea however he feels that he is tolerating liquids without difficulty. Vital signs stable. Objective Vital signs: Temperature 98.2 F 02/14/17 07:45 Pulse Rate 104 H 02/14/17 07:45 Respiratory Rate 20 02/14/17 07:45 Blood Pressure 117/82 02/14/17 07:45 Pulse Oximetry 94 02/14/17 07:45 Height/Weight/BMI: Height 1.91 m Weight 96 kg Body Mass Index 27.8 - Constitutional Present: no acute distress, well nourished, well developed - Routine HEENT Exam Eye: Present: EOMI ENT: Present: mucous membranes moist, dentition normal - Routine Respiratory Exam Present: CTA bilaterally. Absent: wheezes - Routine Cardiovascular Exam Present: RRR, S1, S2. Absent: murmur - Routine Abdominal Exam Present: soft, non distended, ostomy. Absent: normoactive bowel sounds ( hypoactive), tenderness - Routine Extremities Exam Present: pulses intact - Routine Skin Exam Present: intact, dry, warm - Routine Neurological Exam Present: alert, oriented X3, CN II-XII intact - Routine Lymphatic Exam Lymphatic: Absent: adenopathy - Routine Psychiatric Exam Present: normal affect, cooperative Results - Labs CBC & Chem 7: 02/14/17 03:59 02/14/17 03:59 Assessment and Plan (1) Small bowel obstruction Current visit: Yes Status: Acute Assessment and Plan: Assessment Small bowel obstruction - possible entrapment in ventral hernia Abdominal pain secondary to possible small bowel obstruction with entrapment in ventral hernia 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 Appreciate surgical consultation. Clinical Informatics Physician did increase slightly today and Iain reports feeling "dry". He has had 1/ 2NS with 20 KCL at 75ml/hr running overnight. Will give a 500 ML NS bolus over the next 2 hours for increased hydration. Continue to follow routine labs, electrolytes and renal function Case discussed with attending, Dr Álvarez [facility] Course Summary Disclaimer: The visit summary below is not to be considered part of the above Progress Note. 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 Valentino attending. Based on his presentation of abdominal pain with h/o colostomy, in addition to his MOIRA, suspect his stay with exceed two overnights. IV fluids for rehydration and acute kidney injury. BMP in a.m. to follow electrolytes and renal function. Monitor CBC to follow leukocytosis. Morphine and Zofran as needed for pain and nausea. Consult Dr. Varela re: possible entrapment of bowel in ventral hernia. NPO and hold warfarin in the event he needs surgical intervention. SCDs for DVT prophylaxis. Patient wishes to be a full code. His DPOA-H is his mother, Sofia Arenas Care to return to his PCP, Dr. Juan Pablo Gomes, after dismissal. 02/12/17 Na increasing; K down to 3.4 - Change IVF to 1/2NS with KCl. Renal function improving. D/W Dr. Varela - will check KUB; barium study today. Needing IV morphine on 2-hour intervals frequently for pain control. 02/13/17- Plan Coumadin remains on hold currently. Will likely need to be placed on Lovenox once it is determitend he will not urgently need surgery Continue with IV fluids for hydration. Renal function is improving and Clinical Informatics Physician 1.6 Dilaudid for pain determined Appreciate surgical consultation by Dr Varela 02/14/17 Plan Clear liquids ordered by Dr Varela. Appreciate surgical consultation. Clinical Informatics Physician did increase slightly today and Iain reports feeling "dry". He has had 1/ 2NS with 20 KCL at 75ml/hr running overnight. Will give a 500 ML NS bolus over the next 2 hours for increased hydration. Continue to follow routine labs, electrolytes and renal function Case discussed with attending, Dr Álvarez <Tarik Álvarez IV - Last Filed: 02/14/17 16:13> - Date 02/14/17 Objective Vital signs: Temperature 96.4 F L 02/14/17 15:23 Pulse Rate 93 02/14/17 15:23 Respiratory Rate 16 02/14/17 15:23 Blood Pressure 115/90 H 02/14/17 15:23 Pulse Oximetry 94 02/14/17 15:23 Height/Weight/BMI: Height 6 ft 3 in Weight 96 kg Body Mass Index 27.8 Results - Labs CBC & Chem 7: 02/14/17 03:59 02/14/17 03:59 Assessment and Plan (1) Small bowel obstruction Current visit: Yes Status: Acute Assessment and Plan: I have independently interviewed and examined the patient. I have reviewed the medical record. The plan has been discussed and formulated with BALLOON SELLER as above with the additions below. Patient says he is worn out. He had frequent stools overnight after SBFT. Nurse says patient has been needing iv Dilaudid frequently - 4 doses so far today. Heart regular lungs clear abdomen s/nt/nd +ostomy no edema IVF after Cr up. Patient tolerating liquids. Add Lincoln to limit iv Dilaudid. Hospital Course Summary Disclaimer: The visit summary below is not to be considered part of the above Progress Note. Hospital Course: 02/14/17 16:13 IVF after Cr up. Patient tolerating liquids. Added Lincoln to limit iv Dilaudid.
--- NOTE | 2017-02-14 15:38 | Progress Note ---
DATE OF VISIT 02/13/2017 REASON FOR VISIT Follow bowel obstruction. SUBJECTIVE Iain says that his abdominal pain has improved slightly compared to yesterday. He is not having nausea or vomiting currently. He feels like his ostomy output may have decreased somewhat today. OBJECTIVE VITALS: Afebrile with stable vitals on room air. GENERAL: The patient is awake and alert in no acute distress. ABDOMEN: Soft, greatly decreased tenderness. The ostomy remains pink and has liquid output today. There is not a significant amount of output in his ostomy bag at this point in time. LABORATORY DATA INR remains slightly elevated at 1.62. ASSESSMENT 1. 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 2. Hypercoagulable state due to Factor V Leiden deficiency. 3. Chronic Coumadin anticoagulation - INR is decreasing from the therapeutic range but is still too high for surgical intervention. PLAN 1. Since he is clinically improving. I will order a Gastrografin small bowel follow-through this afternoon. 2. Continue to hold Coumadin until surgical decision can be finalized. 3. The case was discussed Dr. Valentino this afternoon. [facility] MED[facility] CENTERSeymour
[2017-02-14] MEDS: HYDROCODONE/APAP 5mg/325mg TABLET PO PRN (16:51)
--- NOTE | 2017-02-14 20:57 | XRay Report ---
EXAM: XR small bowel follow through HISTORY: Evaluate partial SBO COMPARISON: Comparison is made with the CT scan of the abdomen and pelvis dated 02/11/2017 and the plain film images of the abdomen performed 02/12/2017. A routine small bowel follow-through was performed. Sequential overhead and spot film evaluation was performed. FINDINGS: The scallop cutter film of the abdomen showed multiple dilated loops of small bowel demonstrating maximum caliber of 6 cm . There is noted contrast within nondilated colon from a recent Gastrografin enema performed prior to this examination. There is artifact from a right lower quadrant ostomy site. There is artifact from an IVC filter in the right paraspinal region at the L3-L4 level. SMALL BOWEL FOLLOW THROUGH FINDINGS: The sequential overhead images demonstrate slow progression of the orally administrated contrast within dilated duodenal, jejunal and ileal loops. The contrast remains within small bowel on the three hour images however on the five hour images there is new opacification within the rachael ascending colon not seen on the scallop cutter film. On the delayed 15 hour images there is progression there is no longer contrast seen within small bowel contrast is predominantly within colonic loops extending into the expected region of the rectum. IMPRESSION: Findings are most consistent with high-grade partial small bowel obstruction. .
[2017-02-15] MEDS: 1/2 NS with KCL 20mEq 1,000 ML IV SCH ×3 (02:58→23:41)
--- NOTE | 2017-02-15 10:29 | Progress Note ---
<Payal Patel D - Last Filed: 02/15/17 10:25> - Date 02/15/17 Subjective: Iain is still having abdominal pain but he can tell it's improving. His nausea has resolved and he gave a "thumbs up" to the clear liquid diet. He no longer notes dizziness when he ambulates. Overall, he feels like he's improving. He reported Dr. Varela was just in to see him and will advance his diet to full liquids. Objective Vital signs: Temperature 97.2 F 02/15/17 07:00 Pulse Rate 89 02/15/17 07:00 Respiratory Rate 14 02/15/17 07:00 Blood Pressure 117/87 02/15/17 07:00 Pulse Oximetry 93 02/15/17 07:00 Height/Weight/BMI: Height 1.91 m Weight 96.2 kg Body Mass Index 27.8 - Constitutional Present: no acute distress, well nourished, well developed - Routine HEENT Exam ENT: Present: oropharynx clear - Routine Respiratory Exam Present: CTA bilaterally - Routine Cardiovascular Exam Present: RRR, S1, S2 - Routine Abdominal Exam Present: soft, tenderness (mild diffuse tenderness), ostomy (+output) - Routine Extremities Exam Present: no edema - Routine Skin Exam Present: intact, dry, warm - Routine Neurological Exam Present: alert, oriented X3 - Routine Psychiatric Exam Present: normal affect, normal thought process, cooperative Results - Labs CBC & Chem 7: 02/15/17 03:57 02/15/17 03:57 Assessment and Plan (1) Small bowel obstruction Current visit: Yes Status: Acute Assessment and Plan: Assessment Small bowel obstruction - possible entrapment in ventral hernia Abdominal pain secondary to possible small bowel obstruction with entrapment in ventral hernia 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 Decrease rate of IVF to 75 mL/hr. Electrolyte abnormalities have resolved. Diet advanced to full liquid diet per Dr. Varela. Pain improving with less reliance on Dilaudid - none has been given since yesterday afternoon. Encourage oral meds versus IV narcotics in preparation for discharge. CBC stable. Coumadin on hold; will check about bridging with Lovenox with Dr. Varela. GI Prophylaxis: Protonix Resuscitation Status: Full Code Hospital Course Summary Disclaimer: The visit summary below is not to be considered part of the above Progress Note. 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 Valentino attending. Based on his presentation of abdominal pain with h/o colostomy, in addition to his MOIRA, suspect his stay with exceed two overnights. IV fluids for rehydration and acute kidney injury. BMP in a.m. to follow electrolytes and renal function. Monitor CBC to follow leukocytosis. Morphine and Zofran as needed for pain and nausea. Consult Dr. Varela re: possible entrapment of bowel in ventral hernia. NPO and hold warfarin in the event he needs surgical intervention. SCDs for DVT prophylaxis. Patient wishes to be a full code. His DPOA-H is his mother, Sofia Arenas Care to return to his PCP, Dr. Juan Pablo Gomes, after dismissal. 02/12/17 Na increasing; K down to 3.4 - Change IVF to 1/2NS with KCl. Renal function improving. D/W Dr. Varela - will check KUB; barium study today. Needing IV morphine on 2-hour intervals frequently for pain control. 02/13/17- Plan Coumadin remains on hold currently. Will likely need to be placed on Lovenox once it is determitend he will not urgently need surgery Continue with IV fluids for hydration. Renal function is improving and Crew Foreman 1.6 02/14/17 IVF after Cr up. Patient tolerating liquids. Added [place] to limit iv Dilaudid. 02/15/17 Renal status improving - BUN down to 31 and creatinine 1.4. Decrease rate of IVF to 75 mL/hr. Electrolyte abnormalities have resolved. Diet advanced to full liquid diet per Dr. Varela. Pain improving with less reliance on Dilaudid - none has been given since yesterday afternoon. Encourage oral meds versus IV narcotics in preparation for discharge. CBC stable. Coumadin on hold; will check about bridging with Lovenox with Dr. Varela. <Tarik Álvarez IV - Last Filed: 02/15/17 14:37> - Date 02/15/17 Objective Vital signs: Temperature 97.2 F 02/15/17 07:00 Pulse Rate 89 02/15/17 07:00 Respiratory Rate 14 02/15/17 07:00 Blood Pressure 117/87 02/15/17 07:00 Pulse Oximetry 93 02/15/17 07:00 Height/Weight/BMI: Height 6 ft 3 in Weight 96.2 kg Body Mass Index 27.8 Results - Labs CBC & Chem 7: 02/15/17 03:57 02/15/17 03:57 Assessment and Plan (1) Small bowel obstruction Current visit: Yes Status: Acute Assessment and Plan: I have independently interviewed and examined the patient. I have reviewed the medical record. The plan has been discussed and formulated with MATT as above with the additions below. He is tolerating a diet. No longer having nausea. Says he has been walking, and he is having less dizziness when he stands. Lungs are clear. Heart is regular. Abdomen is s/nt/nd. Output in ostomy. No edema. Cr is close to baseline. Metabolic acidosis improving with decreased ostomy output. Encourage patient to be active. With no plans for surgery, starting Lovenox. Hospital Course Summary Disclaimer: The visit summary below is not to be considered part of the above Progress Note. Addendum entered and electronically signed by Payal Patel APRN 02/15/17 12: 18: Discussed with Dr. Varela - he spoke with the surgery residency service; uncertain if they will be able to move up scheduled surgery before 03/01. OK to give Lovenox and to start Coumadin. Pharmacy has been consulted.
[2017-02-15] MEDS ORDERED: HYDROMORPHONE 2 MG/ML INJECTION IVP PRN (10:35)
--- NOTE | 2017-02-15 11:48 | Progress Note ---
DATE OF VISIT 02/14/2017 REASON FOR VISIT Follow bowel obstruction. SUBJECTIVE Iain says that he is doing fairly well. He had a significant amount of output in his ostomy with the Gastrografin small bowel series performed last evening. He did not sleep well due to the multiple times that he needed to empty his ostomy. He is feeling better this morning. OBJECTIVE VITAL SIGNS: Temperature 98.2, pulse 104, blood pressure 117/82, respiratory rate 20, oxygen saturation 94% on room air. GENERAL: The patient is awake and alert, in no acute distress. ABDOMEN: Soft, minimally tender. His ostomy mucosa remains pink. He has some liquid and slightly solid output. LABORATORY DATA White blood cell count 9.1. IMPRESSION 1. 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 He did not have a complete obstruction based on Gastrografin small bowel follow-through results. 2. Hypercoagulable state due to Factor V Leiden deficiency. 3. Chronic Coumadin anticoagulation - Coumadin held currently. PLAN 1. I did discuss the Gastrografin small bowel follow-through results with the radiologist this morning and there does not appear to be a complete obstruction though there is some dilated bowel. The contrast seemed to flow through. 2. I will advance him to a noncarbonated clear liquid diet to see if he will clinically tolerate this. 3. He could have Lovenox continued today since it does not appear he will be going to surgery at this point in time. I had contacted the hospitalist last evening to give him a dose last night while awaiting results this morning. GABRIELLA
[2017-02-15] MEDS ORDERED: PANTOPRAZOLE 20 MG TABLET PO SCH (12:22)
[2017-02-15] MEDS: BREXPIPRAZOLE 2 MG PO SCH (12:39)
[2017-02-15] MEDS: SERTRALINE 100 MG TABLET PO SCH (12:42)
[2017-02-15] MEDS: BENZTROPINE 1 MG TABLET PO SCH ×2 (12:42→21:24)
[2017-02-15] MEDS: PREGABALIN 150 MG CAPSULE PO SCH ×2 (12:43→21:23)
[2017-02-15] MEDS: HYDROCODONE/APAP 5mg/325mg TABLET PO PRN ×2 (12:45→21:23)
[2017-02-15] MEDS ORDERED: WARFARIN - PHARMACY CONSULT MC ONE (12:45)
[2017-02-15] MEDS: PANTOPRAZOLE 40 MG TABLET PO SCH ×2 (12:57→21:27)
[2017-02-15] MEDS: ENOXAPARIN 150 MG/ML INJECTION SQ SCH (12:58)
[2017-02-15] MEDS ORDERED: WARFARIN 7.5 MG TABLET PO ONE (13:30)
--- NOTE | 2017-02-15 13:36 | Progress Note ---
DATE OF VISIT 02/15/2017 REASON FOR VISIT Follow bowel obstruction. SUBJECTIVE Iain still says his abdomen is slightly tender. He has tolerated his clear liquid diet without problems. He feels like he has been drinking a normal amount. OBJECTIVE VITAL SIGNS: Temperature 97.2, pulse 89, blood pressure 117/87, respiratory rate 14, oxygen saturation 93% on room air. GENERAL: The patient is awake and alert, in no acute distress. ABDOMEN: Soft, minimally tender. His ostomy does have good output with 800 ml out since midnight. LABORATORY DATA White blood cell count 7.6. IMPRESSION 1. 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 2. Hypercoagulable state due to Factor V Leiden deficiency. 3. Chronic Coumadin anticoagulation - on hold. PLAN 1. Advance to a full liquid diet today and monitor for tolerance. 2. I will try to contact his surgeon (Chief Resident, Dr. Lazaro Brambila) in [place] and see what they feel would be the best game plan as far as management from here with regards to his blood thinners and upcoming scheduled surgery. GABRIELLA
--- NOTE | 2017-02-15 14:39 | Pharmacy Consult ---
Pharmacy Consult-Warfarin - Laboratory Information 02/12/17 02/13/17 04:00 03:57 INR 2.22 H 1.62 H - Consult Information 51 y.o. Male with history of chronic anti-coagulation with Warfarin due to Leiden factor V deficiency. Home warfarin dose 5 mg po daily except 7.5 mg on Saturday and . goal INR = 2.0 to 3.0. Lovenox 150 mg sq daily currently ordered while INR is subtherapeutic. Will give warfarin 7.5 mg po x 1 dose today. Pharmacy will monitor and adjust dose as needed. Thank you for the consult, Danni Perez RPh
[2017-02-15] MEDS: PANTOPRAZOLE 40 MG INJECTION IVP SCH (14:44)
[2017-02-15] MEDS: TRAZODONE 100 MG TABLET PO PRN (21:23)
[2017-02-16 01:24] VITALS: RESP 16
[2017-02-16] MEDS: 1/2 NS with KCL 20mEq 1,000 ML IV SCH ×2 (06:13→13:02)
[2017-02-16] MEDS: PANTOPRAZOLE 40 MG TABLET PO SCH (06:21)
--- NOTE | 2017-02-16 06:59 | Pharmacy Consult ---
Pharmacy Consult-Warfarin - Laboratory Information 02/12/17 02/13/17 02/16/17 04:00 03:57 03:46 INR 2.22 H 1.62 H 1.23 H - Consult Information 51 y.o. Male with history of chronic anti-coagulation with Warfarin due to Leiden factor V deficiency. Home warfarin dose 5 mg po daily except 7.5 mg on Saturday and . goal INR = 2.0 to 3.0. Lovenox 150 mg sq daily currently ordered while INR is subtherapeutic. Will give warfarin 7.5 mg po at noon today. Pharmacy will monitor and adjust dose as needed. Thank you for the consult,
[2017-02-16 08:29] VITALS: BP 111/82; PULSE 91; TEMP 97.2; O2SAT 95
[2017-02-16] MEDS: BREXPIPRAZOLE 2 MG PO SCH (09:55)
[2017-02-16] MEDS: PREGABALIN 150 MG CAPSULE PO SCH (09:56)
[2017-02-16] MEDS: BENZTROPINE 1 MG TABLET PO SCH (09:56)
[2017-02-16] MEDS: SERTRALINE 100 MG TABLET PO SCH (09:56)
[2017-02-16] MEDS: ENOXAPARIN 150 MG/ML INJECTION SQ SCH (09:57)
[2017-02-16] MEDS ORDERED: WARFARIN 7.5 MG TABLET PO SCH (12:00)
--- NOTE | 2017-02-16 15:01 | Discharge Summary ---
<Payal Patel D - Last Filed: 02/16/17 14:57> Discharge Information Date of admission: 02/11/17 14:50 Anticipated date of discharge: 02/16/17 Attending Physician: Tarik Álvarez IV, MD Primary care physician: Juan Pablo Gomes DO Consults: Consulting Provider: Evan Varela - Discharge Diagnosis (1) Small bowel obstruction Status: Acute Partial SBO secondary to parastomal hernia Subtherapeutic INR; bridge with Lovenox MOIRA - resolved - Laboratory Labs: 02/15/17 03:57 02/16/17 03:46 - Radiology Radiology: CT abdomen and pelvis with contrast Date of Exam: 02/11/17 IMPRESSION: Dilated fluid containing small bowel loops with possible transition point in the ventral abdominal wall hernia suggesting entrapment. The distal small bowel loops and colon are decompressed. There is no free intraperitoneal air. Right lower quadrant colostomy site is demonstrated. XR small bowel follow through Date of Exam: 02/13/17 IMPRESSION: Findings are most consistent with high-grade partial small bowel obstruction. History of Present Illness HPI: Patient is a 51 yo M who was sent to the ED from his PCP's office (Dr Gomes) with a 3 day h/o of progressive nausea and abdominal pain. Patient had a bowel perforation in 2015 and has a colostomy in the right lower quadrant. He tells me that on 02/06/17 he went in for testing in [place] for a gastrographin enema and reports he was told it was normal. He states he is scheduled for reversal of the colostomy on March 01. Unable to remember the name of his surgeon. States 3 days ago he noticed cramping and didn't have much of an appetite. Over the weekend this worsened. He states he's been able to drink plenty of fluids but the fluids flow straight to his bag. He feels very dehydrated. He last ate solid food yesterday morning. Current pain 08/29. Patient had a normal renal sono in November d/t worsening renal function, but, per Dr. Gomes, he was found to be taking too much ibuprofen and once he decreased his dose, the renal function improved. On admission, his creatinine was 2.8. Objective Vital signs: Temperature 97.2 F 02/16/17 08:28 Pulse Rate 91 02/16/17 08:28 Respiratory Rate 16 02/16/17 08:28 Blood Pressure 111/82 02/16/17 08:28 Pulse Oximetry 95 02/16/17 08:28 Height/Weight/BMI: Height 1.91 m Weight 96 kg Body Mass Index 27.8 - Constitutional Present: no acute distress, well nourished, well developed - Routine HEENT Exam Eye: Present: PERRL ENT: Present: oropharynx clear - Routine Respiratory Exam Present: CTA bilaterally - Routine Cardiovascular Exam Present: RRR, S1, S2 - Routine Abdominal Exam Present: soft, normoactive bowel sounds, tenderness (very mild diffuse tenderness), non distended, ostomy (+ output) - Routine Extremities Exam Present: no edema - Routine Skin Exam Present: intact, dry, warm - Routine Neurological Exam Present: alert, oriented X3 - Routine Psychiatric Exam Present: normal affect, normal thought process, cooperative Hospital Course This is a general summary of the patient's hospital course. For more details refer to the complete medical record. 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 He was started on IVF for his MOIRA and was made NPO. Concerned that surgery may be in order, Coumadin was held. Dr. Varela was consulted, who recommended a conservative approach with bowel rest and symptomatic management. IV medications were provided for pain and nausea, and he initially required frequent narcotic dosing to keep his pain at bay. By 02/12/17, his renal function improved - Cr went from 2.8 to 2.2. From this point, his renal function rapidly improved and by day of DC BUN was 31 and creatinine was 1.4. He had a brief period of hypokalemia which was addressed by adding KCl to IVF. A small bowel follow through was done on 02/13/17, showing partial SBO. By this day, his pain had started to improve and he was able to begin cutting back on narcotics. Diet was advanced to clear liquids, then full liquids, which he tolerated well. By he was on a regular diet and tolerated this well. IVF were discontinued. Pain was controlled with [place]. When it was clear that surgery would not be indicated, therapeutic Lovenox and Coumadin were resumed. INR was still low at discharge (1.23) and will require close f/u. Iain is knowledgeable about how to use Lovenox injections, and a 5-day course of Lovenox was prescribed. Recommend to have INR rechecked on 02/18/17 and f/u with Dr. Gomes for Coumadin dosing. Instructed him to take 7.5 mg on 02/17/17 then have labs drawn on 02/18/[address] Gomes for further dosing instructions. Rx for [place] was also given - we reviewed the risks of this including constipation and bowel obstruction, and I encouraged him to use sparingly (and he voiced an understanding). Dr. Varela was also able to discuss the case with the surgery residency clinic - Dr. Brambila is planning on colostomy reversal on 03/01/17, so Iain will once again need to stop Coumadin and bridge with Lovenox; this will need to be managed by either Dr. Brambila or Dr. Gomes. Iain verbalized an understanding of the discharge instructions and was sent home with his mother in stable condition. Time spent with patient: greater than 35 minutes DVT Prophylaxis: Lovenox, Coumadin Discharge Plan - Discharge Disposition Discharge Date: 02/16/17 Disposition: 01 Discharged Home, Self-Care *Condition: Improved *Reason For Visit: small bowel obstruction - Discharge Medications *Discharge Medications: New Hydrocodone/APAP 5/325 [[place] 5/325] 1 tab PO QID PRN #15 tab PRN Reason: Pain Continue Quetiapine Fumarate [Seroquel Xr] 800 mg PO HS #0 Sertraline [Zoloft] 200 mg PO DAILY Benztropine Mesylate 0.5 mg PO BID Warfarin Sodium 7.5 mg PO TUTH@1800 Trazodone [Desyrel] 100 mg PO TID PRN PRN Reason: Prn Orders L-Methylfolate 1 tab PO DAILY Brexpiprazole [Rexulti] 2 mg PO DAILY Warfarin Sodium 5 mg PO SUMOWEFRSA@1800 #0 Pregabalin Cap [Lyrica] 150 mg PO TID - Discharge Packet/Instructions *Diet: Regular *Activity: As tolerated. No restrictions. *Pain Management/Treatment: [place] 5/325 mg - use sparingly. May cause constipation/bowel obstruction. May also cause weakness/dizziness/confusion. No driving while on [place]. *Wound Care: N/A Additional Instructions: Your INR was low at 1.23 on 02/16/17. You took Coumadin 7.5 mg on 02/15/17 and on 02/16/17. Take 7.5 mg again on 02/17/17. Have INR drawn on 02/18/17 and discuss next Coumadin dose with Dr. Gomes. *Expected Signs/Symptoms: You still may have some abdominal pain but it should continue to improve. *Notify Physician if: Increased abdominal pain, vomiting, decreased stool output , fever, weakness, dizziness, confusion, difficulty breathing, or any new concerns. *During Business Hours Contact: Contact [facility]. Conversely, if you are having abdominal pain you may consider calling Dr. Lazaro Brambila in [place] for recommendations. *After Business Hours Contact: Call [facility] and ask to speak with the on-call provider. If your symptoms are severe, call 911 or go to the ED for evaluation. *Pending Lab/Results: No Pending Lab Outpatient Orders: INR - [facility] Time Frame: 2 Days, Location: Determined By Patient - Referrals/Follow Up *Referrals/Follow Up: Juan Pablo Gomes DO [Family Provider] - 1 Week - Patient Handouts - Dismissal Complete Discharge Instructions are:: Complete <Tarik Álvarez IV - Last Filed: 02/16/17 15:44> Discharge Information Date of admission: 02/11/17 14:50 Attending Physician: Tarik Álvarez IV, MD Primary care physician: MD Juan Pablo Mccann DO Consults: 02/11/17 16:22 Physician Consult [CONS] Routine Consulting Provider: Evan Varela Reason For Exam: abdpain, possible SBO d/t entrapmt ventral hernia Ordering Provider has Notified Cabinetmaker Maintenance: Yes - Discharge Diagnosis (1) Small bowel obstruction Status: Acute - Laboratory Labs: 02/15/17 03:57 02/16/17 03:46 Objective Vital signs: Temperature 97.2 F 02/16/17 08:28 Pulse Rate 91 02/16/17 08:28 Respiratory Rate 16 02/16/17 08:28 Blood Pressure 111/82 02/16/17 08:28 Pulse Oximetry 95 02/16/17 08:28 Height/Weight/BMI: Height 6 ft 3 in Weight 96 kg Body Mass Index 27.8 Hospital Course This is a general summary of the patient's hospital course. For more details refer to the complete medical record. 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 I have reviewed the medical record. The plan has been discussed and formulated with UI LEAD DEVELOPER as above with the additions below. Patient is tolerating regular diet. Says he feels much better and ready to go home. Lungs clear, heart regular, abdomen s/nt/nd +bs, stool in ostomy Patient stable for dismissal. He will continue lovenox with coumadin for now. He will f/u with Dr. Gomes and with his surgeon, Dr. Brambila, for his colostomy reversal.
--- NOTE | 2017-02-18 07:00 | Progress Note ---
DATE OF VISIT 02/16/2017 REASON FOR VISIT Follow bowel obstruction. SUBJECTIVE Iain has done very well. He has tolerated the full liquid diet without any problems. His diet had been advanced by the hospitalist team after they contacted me, but he has not tried regular food yet. He says his abdominal pain is essentially gone and he is not experiencing any bloating. OBJECTIVE VITAL SIGNS: Temperature 97.2, pulse 91, blood pressure 111/82, respiratory rate 16, oxygen saturation 95% on room air. GENERAL: The patient is awake, alert, in no acute distress. ABDOMEN: Soft, nontender. His ostomy has pink mucosa and appropriate output. IMPRESSION Partial small bowel obstruction secondary to parastomal hernia - resolved. PLAN 1. Advance to regular diet today. 2. If he tolerates a regular diet, he could be dismissed whenever arrangements are made by the hospitalist service. 3. I had contacted Dr. Hay of the unassigned surgery resident clinic yesterday and he was doubtful that any advancement of the patient's surgery could be achieved. GABRIELLA
== END 2017-02-16 17:05 | disposition home or self-care (01) | DRG 394 ==
LOC: ED 12:15 → SRG 14:50 → SUATTDRO 14:50 → SRG 15:31
PROVIDERS: ADMIT Hospitalist; ATTEND Hospitalist

== ENCOUNTER 2017-08-08 13:03 | Inpatient (IN) ==
[~2017-08-08 13:03] MED LIST: CEFAZOLIN 1 G INJECTION IVP ONE; HEPARIN SUB-Q 5,000units/0.5ml INJECTION SQ ONE; LIDOCAINE 1% (10mg/ml) 2mL INJ PF SDV ID ONE
--- OUTSIDE RECORDS SUMMARY | 2017-08-08 13:18 | External Medical Summary ---
[...] End Date Status Dosage Date Warfarin Sodium [facility] [id number] 5 MG Orally 7.5mg 5-01 daily daily except on Sat and Th when he takes 10mg Results No Known Results Summary Purpose eClinicalWorks Submission
--- OUTSIDE RECORDS SUMMARY | 2017-08-08 13:18 | External Medical Summary | CCD ---
:1965 Author Organization [facility] Team Providers Name Role Phone Glory Deras Primary Care Provider [phone] Sheron Doan I Consulting Provider [phone] Allergies, Adverse Reactions, Alerts Substance Reaction Status No Known Allergies Active Problem List Condition Effective Dates Status Activity intolerance (specify level) Active Alteration in nutrition1 < 10/23/2011 Inactive Anticoagulation Follow Up Encounter Active Anxiety Active At risk for falls Active At risk for falls Active At risk for falls Active At risk for impaired skin integrity < 02/09/2011 Inactive At risk of pressure sore Active At risk of venous thromboembolus < 03/01/2011 Inactive At risk of venous thromboembolus < 02/09/2011 Inactive At risk of venous thromboembolus < 10/23/2011 Inactive At risk of venous thromboembolus < 10/01/2011 Inactive At risk of venous thromboembolus < 04/30/2012 Inactive Bipolar disorder in partial remission Active Coagulation Deficiency Active DVT, lower extremity Active Extremity Pain Active Factor V Active Factor V Leiden Mutation Active Ineffective airway clearance2 < 01/17/2011 Inactive Knee pain Active Knowledge deficit3 < 03/01/2011 Inactive Lipoma Active Obesity NOS4 Active Overweight5 Active Pain6 < 01/17/2011 Inactive Pleural effusion (other than TB) Active Pulmonary Embolism and Infarction 10/16/2011 Active Venous insufficiency NOS Active 1Problem added automatically by system based on documentation of Nausea Present , Bowel Sounds Absent,Malnutrition Screening, Unintentional Weight Change, and Pressure Ulcer Present Upon Admission.2Ineffective Airway Clearance has been suggested based on documentation of abnormal breath sounds, shortness of breath or SpO2 less and 92%.3Problem added automatically by system based on documentation of barriers to learning, decreased level of consciousness, altered orientation or the presence of sensory deficit.4Added based on documentation of BMI=30.8.5Added based on documentation of BMI=28.9.6Problem added automatically by system based on documentation of positive finding of pain. Medications Medication Instructions Start Date End Date Status influenza virus vaccine 0.5 mL, injection, VACCONCE, 02/05/2011 02/09/2011 Completed IM, Start date 02/05/11 0:49:00 Ambien PO, As Needed 04/07/2013 Ordered Immunizations Vaccine Date Status Influenza 02/09/2011 Authenticated Vital Signs Most recent to oldest [Reference Range]: 1 Heart Rate [60-100 bpm] 121 bpm *HI* (04/07/2013 08:24:00) Systolic BP [90-140 mmHg] 142 mmHg *HI* (04/07/2013 08:24:00) Diastolic BP [60-90 mmHg] 85 mmHg (04/07/2013 08:24:00) BP Site Right Arm (04/07/2013 08:24:00) Cuff Size Adult Regular Cuff (04/07/2013 08:24:00)
--- OUTSIDE RECORDS SUMMARY | 2017-08-08 13:18 | External Medical Summary ---
[...] End Date Status Dosage System Date Cymbalta [facility] 17358-36 60 MG Orally 2 capsule 37-01 [place] [address]-22 5 MG Orally as take 7.5mg [place]. [place] [address]-30 1 MG Orally 1 tablet Mesylate 00-00 Twice a day Lovastatin NDC 71693-19 20 MG Orally November 01, 1 tablet 76-06 Once a day 2014 with [place] [address]-43 10-325 MG/15ML 1 tablet aminophen 71-07 Orally QID Seroquel NDC 58982-01 400 MG Orally 1 tablet 79-10 Once a day Procedures Procedure Coding System Code Date RESIN COMPOS - 2 SURFACES POSTERIOR CPT-4 D2392 August 15, 2015 RESIN COMPOS - 2 SURFACES POSTERIOR CPT-4 D2392 August 15, 2015 Results No Known Results Summary Purpose eClinicalWorks Submission
--- OUTSIDE RECORDS SUMMARY | 2017-08-08 13:18 | External Medical Summary | Clinical Summary ---
:1965 Author Organization [facility] Address [address] [place] [address] Care Team Providers Name Role Phone Minerva Mariscal RN Unavailable Unavailable Unverified, Unverified Primary Care Provider Unavailable Source Comments Some departments are not documenting in the electronic medical record. If you do not see the information that you expected, contact Release of Information in the Health Information Management department at [phone] for further assistance in locating additional records.[facility] Allergies No Known Allergies Current Medications [...] Taken Blood Pressure 130/104 04/19/2009 2:58 PM HYDRAULIC JACK ADJUSTER Pulse 118 04/19/2009 2:58 PM HYDRAULIC JACK ADJUSTER Temperature 37.1 C (98.7 F) 04/19/2009 2:58 PM HYDRAULIC JACK ADJUSTER Respiratory Rate - - Oxygen Saturation 97% 04/19/2009 2:58 PM HYDRAULIC JACK ADJUSTER Inhaled Oxygen Concentration - - Weight - - Height - - Body Mass Index - - Plan of Treatment Health Maintenance Due Date Last Done Comments HEPATITIS C SCREENING 1965 PHYSICAL (COMPREHENSIVE) EXAM 12/02/1971 PERTUSSIS VACCINE 12/02/1975 HIV SCREENING 12/02/1979 TETANUS VACCINE 1981 COLORECTAL CANCER SCREENING 2014 INFLUENZA VACCINE 01/20/2018
--- OUTSIDE RECORDS SUMMARY | 2017-08-08 13:18 | External Medical Summary | CCD ---
:1965 Author Organization [facility] Team Providers Name Role Phone Gabrielle Dee Consulting Provider [phone] Glory Deras Primary Care Provider [phone] Allergies, Adverse Reactions, Alerts Substance Reaction Status [...] Medication Instructions Start Date End Date Status Ambien CR 12.5 mg oral =12.5 mg, 1 tab, PO, QHS, 12/08/2013 02/09/2014 Ordered tablet, extended release PRN for sleep, # 30 tab, 2 Refill(s), other reason (Rx) influenza virus vaccine 0.5 mL, injection, 02/05/2011 02/09/2011 Completed VACCONCE, IM, Start date 02/05/11 0:49:00Give prior to discharge if appropriate and with signed consent. Manufacturer Exp: Lot:_ Paxil 30 mg oral tablet =60 mg, 2 tab, PO, Daily, voucher, # 60 tab, 2 Refill( s), Pharmacy [facility] 12/08/2013 03/08/2014 Ordered voucher Seroquel 300 mg oral =300 mg, 1 tab, PO, QHS, voucher, # 30 tab, 2 Refill(s), Pharmacy [facility] 12/08/2013 03/08/2014 Ordered tablet voucher Immunizations Vaccine Date Status Influenza 02/09/2011 Authenticated Vital Signs Most recent to oldest [Reference Range]: 1 Temperature Oral [96.4-99.1 DegF] 97.1 DegF (12/08/2013 09:15:00) Heart Rate [60-100 bpm] 100 bpm (12/08/2013 09:15:00) Resp. Rate [14-20 BRMIN] 20 BRMIN (12/08/2013 09:15:00) Systolic BP [90-140 mmHg] 135 mmHg (12/08/2013 09:15:00) Diastolic BP [60-90 mmHg] 91 mmHg *HI* (12/08/2013 09:15:00) BP Site Left Arm (12/08/2013 09:15:00) Cuff Size Adult Regular Cuff (12/08/2013 09:15:00)
--- OUTSIDE RECORDS SUMMARY | 2017-08-08 13:18 | External Medical Summary | CCD ---
:1965 Author Organization [facility] Team Providers Name Role Phone Glory Deras Primary Care Provider [phone] Sheron Doan I Consulting Provider [phone] Allergies, Adverse Reactions, Alerts Substance Reaction Status [...] 02/05/2011 02/09/2011 Completed IM, Start date 02/05/11 0:49:00Give prior to discharge if appropriate and with signed consent. Manufacturer Exp: Lot: Immunizations Vaccine Date Status Influenza 02/09/2011 Authenticated
--- OUTSIDE RECORDS SUMMARY | 2017-08-08 13:18 | External Medical Summary | CCD ---
:1965 Author Organization [facility] Team Providers Name Role Phone Glory Deras Primary Care Provider [phone] Sheron Doan I Consulting Provider [phone] Allergies, Adverse Reactions, Alerts Substance Reaction Status [...] Medication Instructions Start Date End Date Status trazodone 100 mg oral 100 mg 1 tab, PO, QHS, # 30 06/02/2013 08/01/2013 Ordered tablet tab, 1 Refill(s), Pharmacy: [facility][1] Seroquel 300 mg oral =300 mg, 1 tab, PO, QHS, # 06/02/2013 08/01/2013 Ordered tablet 30 tab, 1 Refill(s), Pharmacy [facility][1] influenza virus vaccine 0.5 mL, injection, 02/05/2011 02/09/2011 Completed VACCONCE, IM, Start date 02/05/11 0:49:00Give prior to discharge if appropriate and with signed consent. Manufacturer Exp: Lot:_ Paxil 30 mg oral tablet =60 mg, 2 tab, PO, Daily, # 06/02/2013 08/01/2013 Ordered 60 tab, 1 Refill(s), Pharmacy [facility][1] Immunizations Vaccine Date Status Influenza 02/09/2011 Authenticated
--- OUTSIDE RECORDS SUMMARY | 2017-08-08 13:18 | External Medical Summary | Continuity of Care Document ---
:1965 Author Organization [facility] Team Providers Name Role Phone [employer] Unavailable Unavailable Problems Problem Status Onset Classification Date Comments Source Date Reported Pulmonary Embolism Active 10/16/19 Problem 12/09/2013 [place] and Infarction [address] [place] [address] Pulmonary embolism Active 10/16/19 Problem 07/29/2013 [place] and infarction [address] [place] [address] Pulmonary Embolism Active 10/16/19 Problem 04/08/2013 [place] [facility] Inf[facility] [address] [place] [address] Activity Active Problem 12/09/2013 [place] intolerance Medical (finding) [facility] Encounter for Active Problem 12/09/2013 [place] therapeutic drug Medical monitoring [facility] Anxiety (finding) Active Problem 12/09/2013 [facility] At risk for falls Active Problem 12/09/2013 [place] (finding) [facility] At risk of Active Problem 12/09/2013 [place] pressure sore Medical (finding) [facility] Bipolar disorder Active Problem 12/09/2013 [place] in partial Medical remission [facility] (disorder) [facility] Other and Active Problem 12/09/2013 [place] unspecified Medical coagulation [facility] defects [facility] Venous embolism Active Problem 12/09/2013 [place] and thrombosis of Medical unspecified deep [facility] vessels of lower [facility] extremity [place] Pain in limb Active Problem 06/03/2013 [facility] Coagulation factor Active Problem 12/09/2013 [place] V (substance) [facility] Primary Active Problem 12/09/2013 [place] hypercoagulable Medical state [facility] Pain in joint Active Problem 07/29/2013 [place] involving lower Medical leg [facility] Lipoma Active Problem 12/09/2013 [facility] Obesity, Active Problem 12/09/2013 4Added based on [place] unspecified documentation Medical of BMI=30.8. [facility] Overweight Active Problem 06/03/2013 5Added based on [place] documentation Medical of BMI=28.9. [facility] Other specified Active Problem 12/09/2013 [place] forms of effusion, Medical except tuberculous [facility] Venous Active Problem 07/29/2013 [place] (peripheral) Medical insufficiency, [facility] unspecified [facility] Pain in limb Active Problem 12/09/2013 [place] (finding) [facility] Lipoma Active Problem 07/29/2013 [facility] Obesity (disorder) Active Problem 07/29/2013 4Added based on [place] documentation Medical of BMI=30.8. [facility] Overweight Active Problem 12/09/2013 5Added based on [place] (finding) documentation Medical of BMI=28.9. [facility] Activity Active Problem 04/08/2013 [place] intolerance Medical (specify level) [facility] Anticoagulation Active Problem 04/08/2013 [place] Follow Up Medical Encounter [facility] Anxiety Active Problem 04/08/2013 [facility] At risk for falls Active Problem 04/08/2013 [facility] At risk of Active Problem 04/08/2013 [place] pressure sore [facility] Bipolar disorder Active Problem 04/08/2013 [place] in partial Medical remission [facility] Coagulation Active Problem 04/08/2013 [place] Deficiency [facility] DVT, lower Active Problem 04/08/2013 [place] extremity [facility] Extremity Pain Active Problem 04/08/2013 [facility] Factor V Active Problem 04/08/2013 [facility] 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 [facility] Pleural effusion Active Problem 04/08/2013 [place] (other than TB) [facility] Venous Active Problem 04/08/2013 [place] insufficiency NOS [facility] Arthralgia of the Active Problem 12/09/2013 [place] lower leg Medical (finding) [facility] Peripheral venous Active Problem 12/09/2013 [place] insufficiency Medical (disorder) [facility] Medications Medication Details Route Status Patient Ordering Order Source Instructions Provider Date trazodone 100 100 mg 1 tab, Active [place] mg oral PO, QHS, # 30 Medical tablet tab, 1 [facility] Refill(s), [facility] Pharm[facility]: [facility] Seroquel 300 =300 mg, 1 tab, PO, QHS, voucher, # 30 tab, 2 Refill(s), Pharmacy [facility] Active Brown [place] mg oral voucher Medical tablet [facility] influenza 0.5 mL, Inactive [place] virus vaccine injection, Medical VACCONCE, IM, [facility] Start date spital 02/05/11 [place] 0:49:00Give prior to discharge if appropriate and with signed consent. Manufacturer__ Exp:_ Lot: Paxil 30 mg =60 mg, 2 tab, PO, Daily, voucher, # 60 tab, 2 Refill(s), Pharmacy [facility] Active Brown [place] oral tablet voucher [facility] Ambien CR =12.5 mg, 1 Inactive Brown [place] 12.5 mg oral tab, PO, QHS, Medical tablet, PRN for sleep, [facility] extended # 30 tab, 2 spital release Refill(s)[facility] other reason (Rx) Ambien PO, As Needed PO Active [facility] Vicodin PO PO Active [facility] trazodone 50 50 mg 1 tab, PO Active Perez [place] mg oral PO, QHS, # 30 Medical tablet tab, 1 [facility] Refill(s), [facility] Pharmacy: [facility] Wellbutrin XL =150 mg, 1 PO Active Perez [place] 150 mg/24 tab, PO, Q24H, Medical hours oral # 30 tab, 0 [facility] tablet, Refill(s), spital extended Pharmacy [facility] Immunizations Immunization Date Given Site Status Last Updated Comments Source Influenza 02/09/2011 completed [facility] Results Order Name Results Value Reference Date Interpretation Comments Source Range Patient INR POC 3.3 0.8 - 1.2 HI 1Interpretiv [place] Viewable 013 e Data: Medical Results Analytical [facility] low limit is spital 0.9. Values [place] less than 0.9 will be not be reported for Point of Care INR. In these instances a venous sample will be required for testing by Main Laboratory. Patient Protime 37.1 s NA [place] Viewable POC 013 [facility] [place] Vital Signs Vital Sign Value Date Comments Source Diastolic BP 91 mmHg 12/08/2013 [facility] Systolic BP 135 mmHg 12/08/2013 [facility] Resp. Rate 20 BRMIN 12/08/2013 [facility] Heart Rate 100 bpm 12/08/2013 [facility] BP Site Left Arm 12/08/2013 [facility]
(12/08 [facility] 09:15:00) [place] <sup> </sup> Cuff Size Adult Regular 12/08/2013 [facility]
(12/08 [place] 09:15:00) <sup> </sup> Temperature Oral 97.1 [degF] 12/08/2013 [facility] Cuff Size Adult Regular 04/07/2013 [facility]
(04/07 [place] 08:24:00) <sup> </sup> BP Site Right Arm 04/07/2013 [facility]
(04/07 [facility] 08:24:00) [place] <sup> </sup> Diastolic BP 85 mmHg 04/07/2013 [facility] Systolic BP 142 mmHg 04/07/2013 [facility] Heart Rate 121 bpm 04/07/2013 [facility] Cuff Size Adult Regular 02/10/2013 [facility]
(02/10 [place] 07:46:00) <sup> </sup> BP Site Left Arm 02/10/2013 [facility]
(02/10 [facility] 07:46:00) [place] <sup> </sup> Diastolic BP 97 mmHg 02/10/2013 [facility] Resp. Rate 20 BRMIN 02/10/2013 [facility] Heart Rate 100 bpm 02/10/2013 [facility] Systolic BP 139 mmHg 02/10/2013 [facility] Temperature Oral 97.2 [degF] 02/10/2013 [facility] BP Site Left Arm 02/09/2013 [facility]
(02/09 [facility] 14:23:00) [place] <sup> </sup> Diastolic BP 83 mmHg 02/09/2013 [facility] Systolic BP 132 mmHg 02/09/2013 [facility] Heart Rate 121 bpm 02/09/2013 [facility] Resp. Rate 18 BRMIN 02/09/2013 [facility]
--- OUTSIDE RECORDS SUMMARY | 2017-08-08 13:18 | External Medical Summary | CCD ---
:1965 Author Organization [facility] Team Providers Name Role Phone Glory Deras Primary Care Provider [phone] Joellen Chris Consulting Provider [phone] Allergies, Adverse Reactions, Alerts Substance Reaction Status [...] 02/09/2011 Completed IM, Start date 02/05/11 0:49:00 Immunizations Vaccine Date Status Influenza 02/09/2011 Authenticated Vital Signs Most recent to oldest [Reference Range]: 1 Heart Rate [60-100 bpm] 121 bpm *HI* (02/09/2013 14:23:00) Resp. Rate [14-20 BRMIN] 18 BRMIN (02/09/2013 14:23:00) Systolic BP [90-140 mmHg] 132 mmHg (02/09/2013 14:23:00) Diastolic BP [60-90 mmHg] 83 mmHg (02/09/2013 14:23:00) BP Site Left Arm (02/09/2013 14:23:00) Results Patient Viewable Results Most recent to oldest [Reference Range]: 1 Protime POC 37.1 sec *NA* (02/09/2013 14:15:00) INR POC [0.8-1.2] 3.3 1 *HI* (02/09/2013 14:15:00) 1Interpretive Data: Analytical low limit is 0.9. Values less than 0.9 will be not be reported for Point of Care INR. In these instances a venous sample will be required for testing by Main Laboratory.
--- OUTSIDE RECORDS SUMMARY | 2017-08-08 13:18 | External Medical Summary | CCD ---
:1965 Author Organization [facility] Team Providers Name Role Phone Glory Deras Primary Care Provider [phone] Sheron Doan I Consulting Provider [phone] Allergies, Adverse Reactions, Alerts Substance Reaction Status [...] Status influenza virus vaccine 0.5 mL, injection, 02/05/2011 02/09/2011 Completed VACCONCE, IM, Start date 02/05/11 0:49:00 Vicodin PO 02/10/2013 Ordered trazodone 50 mg oral 50 mg 1 tab, PO, QHS, # 30 02/10/2013 04/11/2013 Ordered tablet tab, 1 Refill(s), Pharmacy: [facility] Wellbutrin XL 150 mg/24 =150 mg, 1 tab, PO, Q24H, # 02/10/2013 03/12/2013 Ordered hours oral tablet, 30 tab, 0 Refill(s), extended release Pharmacy [facility] Seroquel 300 mg oral =300 mg, 1 tab, PO, QHS, # 02/10/2013 04/11/2013 Ordered tablet 30 tab, 1 Refill(s), Pharmacy [facility] Paxil 30 mg oral tablet =60 mg, 2 tab, PO, Daily, # 02/10/2013 04/11/2013 Ordered 60 tab, 1 Refill(s), Pharmacy [facility] Immunizations Vaccine Date Status Influenza 02/09/2011 Authenticated Vital Signs Most recent to oldest [Reference Range]: 1 Temperature Oral [96.4-99.1 DegF] 97.2 DegF (02/10/2013 07:46:00) Heart Rate [60-100 bpm] 100 bpm (02/10/2013 07:46:00) Resp. Rate [14-20 BRMIN] 20 BRMIN (02/10/2013 07:46:00) Systolic BP [90-140 mmHg] 139 mmHg (02/10/2013 07:46:00) Diastolic BP [60-90 mmHg] 97 mmHg *HI* (02/10/2013 07:46:00) BP Site Left Arm (02/10/2013 07:46:00) Cuff Size Adult Regular Cuff (02/10/2013 07:46:00)
--- OUTSIDE RECORDS SUMMARY | 2017-08-08 13:19 | External Medical Summary ---
:1965 Author Organization [facility] Team Providers Name Role Phone Juan [...] Problem Solitary pulmonary nodule R91.1 Active Problem intermediate (current) use of Z79.01 Active [...] Medications Results No Known Results Summary Purpose [facility] Submission
--- OUTSIDE RECORDS SUMMARY | 2017-08-08 13:19 | External Medical Summary ---
[...] End Date Status Dosage Date Hydrocodone-Matthew NDC 98605-61 7.5-325 MG Active 1 tablet taminophen 66-01 Orally tid Warfarin Sodium NDC 63252-59 10 MG Orally Mar 10, Active 1 tablet 10-01 Once every 2013 evening /// Seroquel NDC 43069-84 300 MG Orally Active 1 tablet at 74-39 Once a day bedtime Paxil NDC 68212-64 30 MG Orally Active 2 tablet in 12-13 Once a day the evening Warfarin Sodium NDC 32133-10 7.5 MG Orally Active 1 tablet 75-01 every // evening Procedures Procedure Coding System Code Date PROTIME INR, IN HOUSE CPT-4 94544 Mar 30, 2014 Vital Signs Date/Time: Mar [...]
--- OUTSIDE RECORDS SUMMARY | 2017-08-08 13:19 | External Medical Summary ---
[...] Start End Date Status Dosage Date Paxil [facility] 44572-98 30 MG Orally 2 tablet in 12-13 Once a day the evening Seroquel [facility] 61833-98 400 MG Orally 1 tablet at 79-10 Once a day bedtime Warfarin Sodium [facility] 50775-86 7.5 MG Orally 1 tablet 75-01 Two times a Week on Saturday and Saturday *MUST HAVE LABS BFORE NEXT REFILL* Hydrocodone-Matthew [facility] 63181-73 10-325 MG/15ML 1 tablet taminophen 71-07 Orally QID Procedures Procedure Coding System Code Date PROTIME INR, IN HOUSE CPT-4 03673 October 21, 2014 Results Name Result Date Reference Range Unit Abnormality Flag In House Protime INR Summary Purpose eClinicalWorks Submission
--- OUTSIDE RECORDS SUMMARY | 2017-08-08 13:19 | External Medical Summary ---
[...] End Date Status Dosage Date Warfarin Sodium [facility] 62176-69 7.5 MG Orally 1 tablet 75-01 Two times a Week on Saturday and Saturday *MUST HAVE LABS BFORE NEXT REFILL* [place] [address]-27 30 MG Orally 2 tablet in 12-13 Once a day [place] [address]-54 10-325 MG/15ML 1 tablet taminophen 71-07 [place] [address]-95 400 MG Orally 1 tablet at 79-10 Once a day bedtime Procedures Procedure Coding System Code Date COMPREHENSIVE METABOLIC PANEL CPT-4 72200 October 13, 2014 LIPID PANEL CPT-4 10823 October 13, 2014 COMPLETE CBC W/AUTO DIFF WBC CPT-4 43219 October 13, 2014 HEMOSURE iFOB SCREENING, IN HOUSE CPT-4 73601 October 13, 2014 TSH CPT-4 25382 October 13, 2014 OFFICE VISIT, EST-LOW COMPLEXITY (15 MIN.) CPT-4 65967 October 13, 2014 PROTIME INR, IN HOUSE CPT-4 35447 October 13, 2014 Vital Signs Date/Time: October [...]
--- OUTSIDE RECORDS SUMMARY | 2017-08-08 13:19 | External Medical Summary ---
[...] Start End Date Status Dosage Date Seroquel [facility] 83012-90 400 MG Orally 1 tablet at 79-10 Once a day bedtime Paxil [facility] 32857-00 30 MG Orally 2 tablet in 12-13 Once a day the evening Hydrocodone-Matthew [facility] 76539-39 10-325 MG/15ML 1 tablet taminophen 71-07 Orally QID Warfarin Sodium [facility] 16834-26 7.5 MG Orally 1 tablet 75-01 Two times a Week on Saturday and Saturday *MUST HAVE LABS BFORE NEXT REFILL* Procedures Procedure Coding System Code Date PROTIME INR, IN HOUSE CPT-4 72679 October 14, 2014 Results No Known Results Summary Purpose eClinicalWorks Submission
--- OUTSIDE RECORDS SUMMARY | 2017-08-08 13:19 | External Medical Summary ---
[...] Date Status Dosage System Date Clonazepam NDC 59818-88 0.5 MG Orally 1 tablet 32-01 Once a day daily, may have 1/2 tablet prn daily Hydrocodone-Acet NDC 02663-36 10-325 MG/15ML 1 tablet aminophen 71-07 Orally QID Paxil NDC 46492-17 30 MG Orally 2 tablet in 04-03 Once a day the evening Warfarin Sodium NDC 00261-49 5 MG Orally 7.5mg daily 05- daily except on Sat and when he takes 10mg Benztropine NDC 79444-83 1 MG Orally 1 tablet Mesylate 00-00 Twice a day Seroquel NDC 08447-34 400 MG Orally 2 tablet at 79-10 Once a day bedtime Lovastatin NDC 71910-51 20 MG Orally November 01, 1 tablet 76-06 Once a day 2014 with a meal Procedures Procedure Coding System Code Date OFFICE VISIT, EST-LOW COMPLEXITY (15 MIN.) CPT-4 26881 Dec 08, 2014 Vital Signs Date/Time: Dec 08, 2014 Height 76.25 in Weight 233.12 lbs Temperature 98.4 F Blood Pressure Diastolic 75 mm Hg Blood Pressure Systolic 105 mm Hg Cardiac Monitoring Heart Rate 131 /min BMI 28.19 Index Respiratory Rate 16 /min Results No Known Results Summary Purpose [employer]ClinicalWorks Submission
--- OUTSIDE RECORDS SUMMARY | 2017-08-08 13:19 | External Medical Summary ---
[...] Date Status Dosage Date Warfarin Sodium [facility] 41608-90 5 MG Orally Two 1 tablet 05-01 times a Week on Saturday and Saturday Hydrocodone-Matthew [facility] 35515-21 10-325 MG/15ML 1 tablet taminophen 71-07 [place] [address]-90 30 MG Orally 2 tablet in 04-03 [place] [address]-52 20 MG Orally November 01, 1 tablet 76-06 Once a day 2014 [place] [address]-84 400 MG Orally 2 tablet at 79-10 Once a day bedtime Procedures Procedure Coding System Code Date PROTIME INR, IN HOUSE CPT-4 05731 Nov 22, 2014 OFFICE VISIT, EST-MOD. COMPLEXITY (25 MIN) CPT-4 72853 Nov 22, 2014 Vital Signs Date/Time: Nov 22, 2014 Height 76.25 in Weight 227.4 lbs Temperature 98.3 F Blood Pressure Diastolic 88 mm Hg Blood Pressure Systolic 128 mm Hg Cardiac Monitoring Heart Rate 99 /min BMI 27.50 Index Oximetry 97 % Respiratory Rate 16 /min Results No Known Results Summary Purpose eClinicalWorks Submission
--- OUTSIDE RECORDS SUMMARY | 2017-08-08 13:19 | External Medical Summary ---
:1965 Author Organization [employer] Care Team Providers Name Role Phone Phuong [...] End [place] [address]-61 30 MG Orally 2 tablet in - Once [place] [address]-24 10 TAKE ONE 24-35 TABLET BY MOUTH EVERY NIGHT AT BEDTIME ON SATURDAY, SATURDAY, SATURDAY, AND SATURDAY. Seroquel NDC 63788-32 300 MG Orally 1 tablet at 74-39 Once a day bedtime Hydrocodone-Matthew NDC 73354-13 7.5-325 MG 1 tablet taminophen 66-01 Orally tid Procedures Procedure Coding System Code Date COMPLETE CBC W/AUTO DIFF WBC CPT-4 64017 Jun 09, 2014 COMPREHENSIVE METABOLIC PANEL CPT-4 22544 Jun 09, 2014 PROTIME INR, IN HOUSE CPT-4 70918 Jun 09, 2014 T4 FREE CPT-4 87803 Jun 09, 2014 TSH CPT-4 80792 Jun 09, 2014 HEPATIC FUNCTION PANEL CPT-4 82933 Jun 09, 2014 LIPID PANEL CPT-4 50996 Jun 09, 2014 Results No Known Results Summary Purpose [employer] Submission
--- OUTSIDE RECORDS SUMMARY | 2017-08-08 13:19 | External Medical Summary ---
[...] of other 286.3 Active clotting factors Problem assisted (current) use of Z79.01 Active anticoagulants Problem Chronic fatigue syndrome 780.71 Active Assessment Opioid dependence, uncomplicated F11.20 Active Assessment Bipolar disorder, unspecified F31.9 Active Problem Opioid dependence, uncomplicated F11.20 Active Problem Generalized anxiety disorder F41.1 Active Medications Medication Code Code Instructions Start End Date Status Dosage System Date Cymbalta [facility] 04179-33 60 MG Orally 2 capsule 37-01 Once a day Warfarin Sodium [facility] 80260-12 5 MG Orally as take 5mg 05-01 directed. daily except Wed take 7.5 mg Seroquel XR [facility] 33189-44 400 MG Orally 2 tablet in 84-39 Once a day in the evening the evening Benztropine [facility] 31070-83 1 MG Orally 1 tablet Mesylate 00-00 [place] [address]-81 200 MG Orally August 22, 1 tablet 82-39 every evening 2015 with 400mg to equal 600mg ProAir HFA [facility] 81195-77 108 (90 Base) Dec 12, 1 to 2 puffs 51-85 MCG/ACT 2016 as needed Inhalation every for 5 hrs shortness of breath. Procedures Procedure Coding System Code Date OFFICE VISIT, EST-MOD. COMPLEXITY (25 MIN) CPT-4 80730 Jan 31, 2016 Vital Signs Date/Time: Jan 31, 2016 Temperature 98.7 F Height 76.25 in Weight 235.4 lbs Blood Pressure Diastolic 94 mm Hg Blood Pressure Systolic 128 mm Hg Cardiac Monitoring Heart Rate 94 /min BMI 28.46 Index Respiratory Rate 16 /min Results No Known Results Summary Purpose eClinicalWorks Submission
--- OUTSIDE RECORDS SUMMARY | 2017-08-08 13:19 | External Medical Summary ---
[...] Date Status Dosage System [place]DC 25360-77 0.5 MG Orally 1 tablet 32-01 Once a day daily, may have 1/2 tablet prn daily Benztropine NDC 20357-88 1 MG Orally 1 tablet Mesylate 00-00 Twice a day Hydrocodone-Acet NDC 58929-05 10-325 MG/15ML 1 tablet aminophen 71-07 Orally QID Lovastatin NDC 52440-59 20 MG Orally November 01, 1 tablet 76-06 Once a day 2014 with a meal Paxil NDC 45643-54 30 MG Orally 2 tablet in - Once a day the evening Warfarin Sodium NDC 75031-59 10 MG Orally 7.5mg daily 10-01 daily except on Sat and when he takes 10mg Seroquel NDC 52326-12 400 MG Orally 2 tablet at 79-10 Once a day bedtime Procedures Procedure Coding System Code Date PROTIME INR, IN HOUSE CPT-4 38376 Jan 04, 2015 Results Name Result Date Reference Range Unit Abnormality Flag In House Protime INR Summary Purpose eClinicalWorks Submission
--- OUTSIDE RECORDS SUMMARY | 2017-08-08 13:19 | External Medical Summary ---
[...] End Date Status Dosage Seroquel XR NDC 33550-116 200 MG Orally August 22, 1 tablet 2-39 every evening 2015 with 400mg to equal 600mg Cymbalta NDC 93141-587 60 MG Orally Once 2 capsule 7-01 a day Seroquel XR NDC 07480-729 400 MG Orally 1 tablet in 4-39 Once a day the evening Results No Known Results Summary Purpose [employer] Submission
--- OUTSIDE RECORDS SUMMARY | 2017-08-08 13:19 | External Medical Summary | Referral Summary ---
:1965 Author Organization [facility] Address [address] [place] [address] Care Team Providers Name Role Phone Noé Dee Primary Care Physician Encounter [facility] [id number] Date(s): 02/04/17 - 02/04/17 [facility] [address] [place] [address]- FR [phone] Discharge Diagnosis: S/P partial resection of colon Discharge Disposition: 01-Home or Self Care Attending Physician: Carie Zamora MD Admitting Physician: Carie Zamora MD Vital Signs Most recent to oldest [Reference Range]: 1 Apical Heart Rate [60-100 bpm] 88 bpm (02/04/17 2:36 PM) Respiratory Rate [14-20 br/min] 24 br/min *HI* (02/04/17 2:36 PM) Blood Pressure [90-140/60-90 mmHg] 126/82 mmHg (02/04/17 2:36 PM) Problem List Condition Effective Dates Status Health Status Informant Acute pain(Confirmed) Active Alteration in nutrition(Confirmed)1 Active Anticoagulation adequate(Confirmed) Resolved At risk for infection(Confirmed)2 Active At risk for injury(Confirmed)3 Active At risk of pressure sore(Confirmed) Active Beta lactam resistant bacterial Active infection(Confirmed)4 Bowel dysfunction(Confirmed)5 Active Cellulitis and abscess of Active leg(Confirmed) Chronic pain(Confirmed) Resolved DVT (deep venous Resolved thrombosis)(Confirmed) Impaired spontaneous Active ventilation(Confirmed)6 Knowledge deficit(Confirmed)7 Active Methicillin resistant Staphylococcus Active aureus(Confirmed)8 PE - Pulmonary embolism(Confirmed) Resolved 1Problem added automatically by system based on initiation of Alteration in Nutrition Plan of [id number] added automatically by system based on initiation of At Risk for Infection in Nutrition Planof [id number] added automatically by system based on initiation of Risk for Injury Plan of [id number] from NOT FOUND collected 04/26/16 15:47:00 [id number] added automatically by system based on initiation of Bowel Dysfunction Plan of [id number] added automatically by system based on initiation of Impaired Spontaneous Ventilation Plan of [place]ouq[place] added automatically by system based on initiation of Knowledge Deficit Plan of Boit2Dwqvwy from NOT FOUND collected 04/26/16 15:47:00 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 Allergies, Adverse Reactions, Alerts No Known Medication Allergies Medications benztropine 1 mg oral tablet 1 mg 1 tabs, Oral, BID, 0 Refill(s) Start Date: 04/20/16 Status: OrderedDULoxetine 60 mg oral delayed release capsule 120 mg 2 caps, Oral, Daily, 0 Refill(s) Start Date: 04/20/16 Status: OrderedLyrica 50 mg oral capsule 50 mg 1 caps, Oral, TID, 0 Refill(s) Start Date: 02/04/17 Status: OrderedoxyCODONE-acetaminophen 10 mg-325 mg oral tablet 2 tabs, Oral, q4hr, Pain Moderate (4-6), 0 Refill(s) Start Date: 05/03/16 Status: OrderedSEROquel XR 400 mg oral tablet, extended release 800 mg 2 tabs, Oral, qPM, 0 Refill(s) Start Date: 04/20/16 Status: OrderedtraZODone 50 mg, Oral, BID, Anxiety, 0 Refill(s) Start Date: 09/25/13 Status: Orderedwarfarin 5 mg oral tablet 5 mg 1 tabs, Oral, Daily, # 30 tabs, 0 Refill(s) Start Date: 05/24/16 Status: Ordered Procedures Procedure Date Related Diagnosis Body Site Laparotomy Exploratory1 04/22/16 Laparotomy Exploratory2 04/20/16 Resection Sigmoid Colon3 04/20/16 1auto-populated from documented surgical [id number] from documented surgical [id number] from documented surgical case Social History Social History Type Response Smoking Status Light tobacco smoker; Type: Pipe entered on: 09/25/13
--- OUTSIDE RECORDS SUMMARY | 2017-08-08 13:19 | External Medical Summary ---
:1965 Author Organization eClinicalWorks Care Team Providers Name Role Phone Phuogn Gaona Provider Role Unavailable Allergies No Known [...] Date Status Dosage Date Warfarin Sodium NDC 17396-17 10 MG Orally Mar 10, Active 1 tablet 10-01 Once every 2013 evening /// Hydrocodone-Matthew NDC 72088-99 7.5-325 MG Active 1 tablet taminophen 66-01 Orally tid Seroquel NDC 09118-91 300 MG Orally Active 1 tablet at 74-39 Once a day bedtime Paxil NDC 00947-54 30 MG Orally Active 2 tablet in 12-13 Once a day the evening Warfarin Sodium NDC 04292-18 7.5 MG Orally Active 1 tablet 75-01 every // evening Procedures Procedure Coding System Code Date OFFICE VISIT, EST-LOW COMPLEXITY (15 MIN.) CPT-4 69131 Mar 10, 2014 COMPREHENSIVE METABOLIC PANEL CPT-4 04628 Mar 10, 2014 HEMOGLOBIN A1C, IN HOUSE CPT-4 87231 Mar 10, 2014 PROTIME INR, IN HOUSE CPT-4 03418 Mar 10, 2014 TSH CPT-4 08991 Mar 10, 2014 Vital Signs Date/Time: Mar [...]
--- OUTSIDE RECORDS SUMMARY | 2017-08-08 13:19 | External Medical Summary ---
[...] Start End Date Status Dosage Date Seroquel [facility] 41694-83 400 MG Orally 1 tablet at 79-10 Once a day bedtime Paxil [facility] 19123-99 30 MG Orally 2 tablet in 12-13 Once a day the evening Hydrocodone-Matthew [facility] 08571-00 10-325 MG/15ML 1 tablet taminophen 71-07 Orally QID Warfarin Sodium [facility] 80027-62 7.5 MG Orally 1 tablet 75-01 Two times a Week on Saturday and Saturday *MUST HAVE LABS BFORE NEXT REFILL* Procedures Procedure Coding System Code Date PROTIME INR, IN HOUSE CPT-4 51688 October 14, 2014 Results Name Result Date Reference Range Unit Abnormality Flag In House Protime INR Summary Purpose eClinicalWorks Submission
--- OUTSIDE RECORDS SUMMARY | 2017-08-08 13:19 | External Medical Summary ---
[...] Date Status Dosage Date Warfarin Sodium [facility] 79073-460 10 MG Orally 7.5mg 0-01 daily daily except on Sat and when he takes 10mg Results No Known Results Summary Purpose eClinicalWorks Submission
--- OUTSIDE RECORDS SUMMARY | 2017-08-08 13:19 | External Medical Summary ---
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 daily except Wed take 7.5 [place] [address]-46 7.5-325 MG 1 tablet as taminophen 66-01 Orally every 4-6 needed hrs p.r.n. for Benztropine [facility] 93362-75 1 MG Orally 1 tablet Mesylate 00-00 Twice a day Seroquel XR [facility] 18716-84 400 MG Orally 2 tablet in 84-39 Once a day in the evening the evening ProAir HFA [facility] 27410-23 108 (90 Base) Dec 12, 1 to 2 puffs 51-85 MCG/ACT 2015 as needed Inhalation every for 5 hrs shortness of breath. Cymbalta [facility] 05431-85 60 MG Orally 2 capsule 37-01 Once a day Procedures Procedure Coding System Code Date OFFICE VISIT, EST-LOW COMPLEXITY (15 MIN.) CPT-4 62984 Feb 27, 2016 PROTIME INR, IN HOUSE CPT-4 17581 Feb 27, 2016 Vital Signs Date/Time: Feb 27, 2016 Temperature 98.3 F Height 76.25 in Weight 234.0 lbs Blood Pressure Diastolic 88 mm Hg Blood Pressure Systolic 126 mm Hg Cardiac Monitoring Heart Rate 97 /min BMI 28.29 Index Oximetry 95 % Respiratory Rate 16 /min Results Name Result Date Reference Range Unit Abnormality Flag In House Protime INR ----results 2.8 [id number] Summary Purpose eClinicalWorks Submission
--- OUTSIDE RECORDS SUMMARY | 2017-08-08 13:19 | External Medical Summary ---
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 (1 04/23 tabs) Results No Known Results Summary Purpose [email or web address] Submission
--- OUTSIDE RECORDS SUMMARY | 2017-08-08 13:19 | External Medical Summary ---
[...] End Date Status Dosage Date Warfarin Sodium [facility] 96979-893 5 MG Orally Two 1 tablet 5-01 times a Week on Saturday and Saturday Results No Known Results Summary Purpose eClinicalWorks Submission
--- OUTSIDE RECORDS SUMMARY | 2017-08-08 13:19 | External Medical Summary ---
[...] Start End Date Status Dosage Date Paxil [facility] 88700-10 30 MG Orally Active 2 tablet in 12-13 Once a day the evening Warfarin Sodium [facility] 74410-59 7.5 MG Orally Active 1 tablet 75-01 [place] [address]-72 300 MG Orally Active 1 tablet at 74-39 Once a day bedtime Procedures Procedure Coding System Code Date PROTIME INR, IN HOUSE CPT-4 12534 Dec 24, 2013 Vital Signs Date/Time: October 01, 2013 Height 76.25 inches Weight 232.8 lbs Temperature 97.7 F Blood Pressure Diastolic 78 mm Hg Blood Pressure Systolic 110 mm Hg Cardiac Monitoring Heart Rate 104 Beats per Minute BMI 28.15 Index Respiratory Rate 16 per Minute Results No Known Results Summary Purpose eClinicalWorks Submission
--- OUTSIDE RECORDS SUMMARY | 2017-08-08 13:19 | External Medical Summary ---
[...] of other 286.3 Active clotting factors Problem [facility] (current) use of Z79.01 Active anticoagulants Problem Chronic fatigue syndrome 780.71 Active Assessment Encounter for dental examination and Z01.20 Active cleaning without abnormal findings Problem Opioid dependence, uncomplicated F11.20 Active Problem Generalized anxiety disorder F41.1 Active Medications Medication Code Code Instructions Start End Date Status Dosage System Date ProAir HFA [facility] 36566-43 108 (90 Base) Dec 12, 1 to 2 puffs 51-85 MCG/ACT 2015 as needed Inhalation every for 5 hrs shortness of breath. Cymbalta [facility] 68666-17 60 MG Orally 2 capsule 37-01 Once a day Hydrocodone-Matthew NDC 92889-30 7.5-325 MG 1 tablet as taminophen 66-01 Orally every 4-6 needed hrs p.r.n. for Hydrocodone-Matthew NDC 94563-79 7.5-325 MG Feb 11, 1 tablet as taminophen 66-01 Orally every 4-6 2015 needed hrs p.r.n. for Seroquel XR NDC 59204-48 200 MG Orally August 22, 1 tablet 82-39 every evening 2015 with 400mg to equal 600mg [place] [address]-06 1 MG Orally 1 tablet Mesylate 00-00 Twice a day Seroquel XR NDC 86387-93 400 MG Orally 2 tablet in 84-39 Once a day in the evening the evening Amoxicillin [facility] 37075-58 500 MG Orally 1 capsule 12-25 every 8 hrs for Warfarin Sodium [facility] 77314-75 5 MG Orally as take 5mg 08-20 directed. daily except Wed take 7.5 mg Procedures Procedure Coding System Code Date OV OBS - NO OTH SRVC PRFRM SEE CPT CPT-4 D9430 Feb 06, 2016 Results No Known Results Summary Purpose eClinicalWorks Submission
[2017-08-08 13:20] VITALS: BMI 33.0
--- OUTSIDE RECORDS SUMMARY | 2017-08-08 13:20 | External Medical Summary ---
:1965 Author Organization [employer] Care Team Providers Name Role Phone Phuong [...] Date Status Dosage Date Warfarin Sodium NDC 54355-11 10 MG Orally Mar 10, Active 1 tablet 10-01 Once every 2013 evening ///Lazo Seroquel NDC 76317-65 300 MG Orally Active 1 tablet at 74-39 Once a day bedtime Warfarin Sodium NDC 78114-25 7.5 MG Orally Active 1 tablet 75-01 every // evening Hydrocodone-Matthew NDC 95642-31 7.5-325 MG Active 1 tablet taminophen 66-01 Orally tid Paxil NDC 98093-36 30 MG Orally Active 2 tablet in 12-13 Once a day the evening Procedures Procedure Coding System Code Date PROTIME INR, IN HOUSE CPT-4 69194 May 18, 2014 Vital Signs Date/Time: Mar 10, 2014 Height 76.25 inches Weight 258.12 lbs Temperature 98.9 F Blood Pressure Diastolic 86 mm Hg Blood Pressure Systolic 112 mm Hg Cardiac Monitoring Heart Rate 88 Beats per Minute BMI 31.21 Index Respiratory Rate 16 per Minute Results No Known Results Summary Purpose [employer] Submission
--- OUTSIDE RECORDS SUMMARY | 2017-08-08 13:20 | External Medical Summary ---
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
--- OUTSIDE RECORDS SUMMARY | 2017-08-08 13:20 | External Medical Summary ---
[...] End Status Dosage System Date Date Clonazepam [facility] [address]-71 0.5 MG Orally 1 tablet Once a day daily, may have 1/2 tablet prn daily Hydrocodone-Matthew [facility] [address]-71 10-325 MG/15ML 1 tablet taminophen Orally QID Paxil [facility] [address]-19 30 MG Orally 2 tablet Once a day in the evening Benztropine [facility] [address]-25 1 MG Orally 1 tablet Mesylate Twice a day Seroquel [facility] [address]-88 400 MG Orally 2 tablet Once a day at bedtime Warfarin Sodium [facility] 47393916678 5 Orally Two 1 tablet times a Week on Saturday and Saturday Lovastatin [facility] [address]-89 20 MG Orally November 01, 1 tablet Once a day 2014 with a meal Procedures Procedure Coding System Code Date PROTIME INR, IN HOUSE CPT-4 20530 Feb 10, 2015 Results No Known Results Summary Purpose eClinicalWorks Submission
--- OUTSIDE RECORDS SUMMARY | 2017-08-08 13:20 | External Medical Summary ---
[...] Date Status [place] [address]-58 0.5 MG Orally 1 tablet 32-01 Once a day daily, may have 1/2 [place] [address]-16 1 MG Orally 1 tablet Mesylate 00-00 Twice a day Hydrocodone-Acet NDC 63856-05 10-325 MG/15ML 1 tablet aminophen 71-07 Orally QID Lovastatin NDC 58528-97 20 MG Orally November 01, 1 tablet 76-06 Once a day 2014 with a meal Paxil NDC 17556-18 30 MG Orally 2 tablet in - Once a day the evening Warfarin Sodium NDC 37479-85 10 MG Orally 7.5mg daily 10-01 daily except on Sat and when he takes 10mg Seroquel NDC 58519-89 400 MG Orally 2 tablet at 79-10 Once a day bedtime Procedures Procedure Coding System Code Date PROTIME INR, IN HOUSE CPT-4 30413 Jan 11, 2015 Results No Known Results Summary Purpose [employer] Submission
--- OUTSIDE RECORDS SUMMARY | 2017-08-08 13:20 | External Medical Summary ---
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 (1 1/2 tabs) Benztropine NDC 73310-12 1 MG Orally 1 tablet Mesylate 00-00 Twice a day Seroquel XR NDC 73452-32 200 MG Orally August 22, 1 tablet 82-39 every evening 2015 with 400mg to equal 600mg Lovastatin NDC 45905-07 20 MG Orally November 01, 1 tablet 76-06 Once a day 2014 with a meal Hydrocodone-Acet NDC 03417-66 10-325 MG/15ML 1 tablet aminophen 71-07 Orally QID Seroquel XR NDC 78900-35 400 MG Orally 1 tablet in 84-39 Once a day the evening Cymbalta NDC 74524-99 60 MG Orally 2 capsule 37-01 Once a day Procedures Procedure Coding System Code Date PROTIME INR, IN HOUSE CPT-4 80129 Nov 21, 2015 Results No Known Results Summary Purpose [employer]ClinicalWorks Submission
--- OUTSIDE RECORDS SUMMARY | 2017-08-08 13:20 | External Medical Summary ---
:1965 Author Organization [employer]ClinicalWorks Care Team Providers Name Role Phone Juan Pablo Gomes Provider Role Unavailable Allergies No Known Allergies Problems Problem Type Condition Code Onset Dates Condition Status Problem Opioid dependence, uncomplicated F11.20 Active Problem Insomnia, [...] Medications Results No Known Results Summary Purpose [employer] Submission
--- OUTSIDE RECORDS SUMMARY | 2017-08-08 13:20 | External Medical Summary ---
:1965 Author Organization [facility] Care Team Providers Name Role Phone Juan Pablo Gomes Provider Role Unavailable Allergies No Known Allergies Problems Problem Type Condition Code Onset Dates Condition Status Problem Generalized anxiety disorder F41.1 Active Problem Opioid dependence, uncomplicated F11.20 Active Problem Chronic fatigue syndrome 780.71 Active Problem Insomnia, unspecified 780.52 Active Problem group home (current) use of Z79.01 Active anticoagulants Problem Chronic pain syndrome 338.4 Active Problem Bipolar disorder, in partial F31.71 Active remission, most recent episode hypomanic Problem 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
--- OUTSIDE RECORDS SUMMARY | 2017-08-08 13:20 | External Medical Summary ---
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 Warfarin Sodium [facility] 67070-71 5 MG Orally as take 5mg po 05 directed. daily except saturday//saturday when your take 10mg po daily. Cymbalta [facility] 43334-60 60 MG Orally 2 capsule - Once a day Lovastatin [facility] 61471-71 20 MG Orally November 01 tablet 76-06 Once a day 2014 with a meal Procedures Procedure Coding System Code Date OFFICE VISIT, EST-MOD. COMPLEXITY (25 MIN) CPT-4 00555 Mar 04, 2015 Vital Signs Date/Time: Mar 04, 2015 Height 76.25 in Weight 238.8 lbs Temperature 97.8 F Blood Pressure Diastolic 84 mm Hg Blood Pressure Systolic 110 mm Hg Cardiac Monitoring Heart Rate 102 /min BMI 28.87 Index Oximetry 98 % Respiratory Rate 16 /min Results No Known Results Summary Purpose eClinicalWorks Submission
--- OUTSIDE RECORDS SUMMARY | 2017-08-08 13:20 | External Medical Summary ---
:1965 Author Organization [facility] Care Team Providers Name Role Phone JimenezPhuong [...] Medications Results No Known Results Summary Purpose [facility] Submission
--- OUTSIDE RECORDS SUMMARY | 2017-08-08 13:20 | External Medical Summary ---
[...] Date Status [place]os[place] [address]-00 10-325 MG/15ML 1 tablet aminophen 71-07 [place] [address]-82 30 MG Orally 2 tablet in - [place] [address]-80 20 MG Orally November 01, 1 tablet 76-06 Once a day 2014 [place] [address]-27 1 MG Orally 1 tablet Mesylate 00-00 [place] [address]-03 0.5 MG Orally 1 tablet 32-01 Once a day daily, may have 1/2 [place] [address]-43 400 MG Orally 2 tablet at 79-10 [place] [address]-54 5 MG Orally 7.5mg daily 05-01 daily except on Sat and when he takes 10mg Procedures Procedure Coding System Code Date PROTIME INR, IN HOUSE CPT-4 98715 Dec 10, 2014 COMPLETE CBC W/AUTO DIFF WBC CPT-4 22436 Dec 10, 2014 URINALYSIS, IN HOUSE CPT-4 58852 Dec 10, 2014 COMPREHENSIVE METABOLIC PANEL CPT-4 12874 Dec 10, 2014 Vital Signs Date/Time: Dec 10, 2014 Blood Pressure Systolic 110 mm Hg Cardiac Monitoring Heart Rate 120 /min Height 76.25 in Respiratory Rate 16 /min Blood Pressure Diastolic 80 mm Hg Results No Known Results Summary Purpose eClinicalWorks Submission
--- OUTSIDE RECORDS SUMMARY | 2017-08-08 13:20 | External Medical Summary ---
[...] End Date Status Dosage Date Seroquel NDC 50000-12 300 MG Orally Active 1 tablet at 74-39 Once a day bedtime Hydrocodone-Matthew NDC 74701-64 7.5-325 MG Active 1 tablet taminophen 66-01 Orally tid Paxil NDC 84298-76 30 MG Orally Active 2 tablet in 04-03 Once a day the evening Warfarin Sodium NDC 43360-72 7.5 MG Orally Active 1 tablet 75-01 every // evening Warfarin Sodium NDC 40671-53 10 MG Orally Mar 10, Active 1 tablet 10-01 Once every 2013 evening /// Procedures Procedure Coding System Code Date Health and behavior assessment, 15 min ea. CPT-4 96423 Apr 13, 2014 Vital Signs Date/Time: Mar 10, 2014 Height 76.25 inches Weight 258.12 lbs Temperature 98.9 F Blood Pressure Diastolic 86 mm Hg Blood Pressure Systolic 112 mm Hg Cardiac Monitoring Heart Rate 88 Beats per Minute BMI 31.21 Index Respiratory Rate 16 per Minute Results No Known Results Summary Purpose eClinicalWorks Submission
--- OUTSIDE RECORDS SUMMARY | 2017-08-08 13:20 | External Medical Summary ---
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 Problem Opioid dependence, uncomplicated F11.20 Active Problem Generalized anxiety disorder F41.1 Active Medications Medication Code Code Instructions Start End Date Status Dosage System Date Benztropine [facility] 22979-74 1 MG Orally 1 tablet Mesylate 00-00 Twice a day Seroquel XR [facility] 38741-86 200 MG Orally August 22, 1 tablet 82-39 every evening 2015 with 400mg to equal 600mg [place] [address]-10 60 MG Orally 2 capsule 37-01 Once a day Seroquel XR [facility] 96947-57 400 MG Orally 1 tablet in 84-39 Once [place] [address]-73 5 MG Orally as take 5mg 05-01 directed. daily except Wed take 7.5 mg ProAir HFA [facility] 33995-00 108 (90 Base) Dec 12, 1 to 2 puffs 51-85 MCG/ACT 2015 as needed Inhalation every for 5 hrs shortness of breath. Procedures Procedure Coding System Code Date PROTIME INR, IN HOUSE CPT-4 07835 Jan 26, 2016 Results Name Result Date Reference Range Unit Abnormality Flag In House Protime INR ----results 2.1 [id number] Summary Purpose eClinicalWorks Submission
--- OUTSIDE RECORDS SUMMARY | 2017-08-08 13:20 | External Medical Summary ---
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 (1 1/2 tabs) Hydrocodone-Acet NDC 58899-99 10-325 MG/15ML 1 tablet aminophen 71-07 Orally QID Procedures Procedure Coding System Code Date COMPLETE CBC W/AUTO DIFF WBC CPT-4 60086 Nov 30, 2015 COMPREHENSIVE METABOLIC PANEL CPT-4 42791 Nov 30, 2015 PROTIME INR, IN HOUSE CPT-4 76244 Nov 30, 2015 PROTIME-INR CPT-4 52436 Nov 30, 2015 Results Name Result Date Reference Range Unit Abnormality Flag CBC With Platelet and Differential ----Immature Granulocytes 0.2 13676823 0.0-1.0 % ----Platelet Count 277 [id number] 150-400 K/uL ----Monocytes 13 08013491 4-11 % H ----HGB 14.8 83609205 14.0-18.0 g/dL ----Lymphocytes 33 09574003 20-46 % ----HCT 42.5 37633925 42.0-52.0 % ----Neutrophils 47 83941187 51-75 % L ----MCV 85.2 47960965 82.0-99.0 fL ----Absolute Basophils 0.06 51476947 0.00-0.20 10*3 ----MCH 29.7 68707765 27.0-32.0 pg ----Absolute Eosinophils 0.38 10642870 0.00-0.50 10*3 ----MCHC 34.8 04772904 32.0-36.0 g/dL ----Eosinophils 6 72971571 0-4 % H ----Absolute Monocytes 0.75 05268220 0.30-1.00 10*3 ----RDW 14.5 17503229 11.5-14.5 % ----Basophils 1 95257689 0-2 % ----WBC 5.9 17455749 4.8-10.8 K/uL ----MPV 9.8 14011535 8.8-14.8 fL ----Absolute Lymphocytes 1.95 74656197 0.80-3.30 10*3 ----RBC 4.99 89500334 4.60-6.20 10*6/uL ----Absolute Neutrophils 2.76 92249641 1.90-7.00 10*3 Protime (INR) ----INR 2.3 90643125 0.9-1.2 H eGFR ----eGFR >60 57827169 >60 mL/min Comprehensive Metabolic Panel (CMP) ----Chloride 104 68257003 99-111 mEq/L ----Potassium 4.7 93591517 3.5-5.2 mEq/L ----Albumin 4.8 46419581 3.5-5.0 g/dL ----CO2 26 41414794 23-31 mEq/L ----Alkaline Phosphatase 67 70632151 40-150 U/L ----Protein 7.6 95819414 6.1-7.7 g/dL ----Bilirubin Total 0.3 76105721 0.2-1.2 mg/dL ----Anion Gap 8 46702479 3-20 ----Calcium 9.6 42368148 8.9-10.5 mg/dL ----Globulin 2.8 53304025 1.8-4.0 g/dL ----Sodium 138 77635840 135-144 mEq/L ----BUN 16 79343421 8-26 mg/dL ----ALT (SGPT) 20 92830797 0-55 U/L ----AST (SGOT) 22 70852941 5-34 U/L ----Creatinine 1.25 85659936 0.72-1.25 mg/dL ----Glucose 81 95085221 70-99 mg/dL Summary Purpose eClinicalWorks Submission
--- OUTSIDE RECORDS SUMMARY | 2017-08-08 13:20 | External Medical Summary ---
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 Cymbalta [facility] 05478-04 60 MG Orally 2 capsule 37-01 [place] [address]-60 1 MG Orally 1 tablet Mesylate 00-00 [place] [address]-48 400 MG Orally 1 tablet in 84-39 Once [place] [address]-00 5 MG Orally as take 5mg 05-01 directed. daily except Wed take 7.5 [place] [address]-35 200 MG Orally August 22, 1 tablet 82-39 every evening 2015 with 400mg to equal 600mg Procedures Procedure Coding System Code Date PROTIME INR, IN HOUSE CPT-4 00928 Dec 13, 2015 OFFICE VISIT, EST-LOW COMPLEXITY (15 MIN.) CPT-4 41341 Dec 13, 2015 Vital Signs Date/Time: Dec 13, 2015 Temperature 98.1 F Height 76.25 in Weight 234.8 lbs Blood Pressure Diastolic 92 mm Hg Blood Pressure Systolic 122 mm Hg Cardiac Monitoring Heart Rate 98 /min BMI 28.39 Index Oximetry 97 % Results No Known Results Summary Purpose eClinicalWorks Submission
--- OUTSIDE RECORDS SUMMARY | 2017-08-08 13:20 | External Medical Summary ---
:1965 Author Organization [facility] Care Team Providers Name Role Phone JimenezPhuong [...] Medications Results No Known Results Summary Purpose [facility]Clinical[facility]ightMe Submission
--- OUTSIDE RECORDS SUMMARY | 2017-08-08 13:20 | External Medical Summary ---
:1965 Author Organization [facility] [facility] Care Team Providers Name Role Phone JimenezPhuong [...] Medications Results No Known Results Summary Purpose [facility] Submission
--- OUTSIDE RECORDS SUMMARY | 2017-08-08 13:20 | External Medical Summary ---
:1965 Author Organization [facility] Care Team Providers Name Role Phone JimenezPhuong [...] Medications Results No Known Results Summary Purpose eClinicalJelli Submission
--- OUTSIDE RECORDS SUMMARY | 2017-08-08 13:20 | External Medical Summary ---
:1965 Author Organization [employer] [employer] Care Team Providers Name Role Phone JimenezPhuong [...] Medications Results No Known Results Summary Purpose [facility] Submission
--- OUTSIDE RECORDS SUMMARY | 2017-08-08 13:20 | External Medical Summary ---
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
--- OUTSIDE RECORDS SUMMARY | 2017-08-08 13:20 | External Medical Summary ---
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 Seroquel XR NDC 55387-74 200 MG Orally August 22, 1 tablet 82-39 every evening 2015 with 400mg to equal 600mg Lovastatin NDC 61551-46 20 MG Orally November 01, 1 tablet 76-06 Once a day 2014 with a meal Procedures Procedure Coding System Code Date RESIN COMPOS - ONE SURFACE ANTERIOR CPT-4 D2330 November 07, 2015 RESIN COMPOS - 2 SURFACES ANTERIOR CPT-4 D2331 November 07, 2015 Results No Known Results Summary Purpose eClinicalWorks Submission
--- OUTSIDE RECORDS SUMMARY | 2017-08-08 13:20 | External Medical Summary ---
:1965 Author Organization [employer] Care Team Providers Name Role Phone JimenezPhuong [...] Medications Results No Known Results Summary Purpose [facility] Submission
--- OUTSIDE RECORDS SUMMARY | 2017-08-08 13:20 | External Medical Summary ---
[...] Date Status [place] [address]-78 400 MG Orally 1 tablet 79-10 Once a day Lovastatin NDC 57310-53 20 MG Orally November 01, 1 tablet 76-06 Once a day 2014 with a meal Cymbalta NDC 73897-26 60 MG Orally 2 capsule 37-01 Once a day Benztropine NDC 79835-21 1 MG Orally 1 tablet Mesylate 00-00 Twice a day Warfarin Sodium NDC 52014-43 5 MG Orally as take 7.5mg 05-01 [place] [address]-06 10-325 MG/15ML 1 tablet aminophen 71-07 Orally QID Procedures Procedure Coding System Code Date RESIN COMPOS - 1 SURFACE POSTERIOR CPT-4 D2391 August 03, 2015 RESIN COMPOS - 3 SURFACES POSTERIOR CPT-4 D2393 August 03, 2015 Results No Known Results Summary Purpose eClinicalWorks Submission
--- OUTSIDE RECORDS SUMMARY | 2017-08-08 13:20 | External Medical Summary ---
[...] of other 286.3 Active clotting factors Problem longterm (current) use of Z79.01 Active anticoagulants Problem Chronic fatigue syndrome 780.71 Active Assessment Encounter for dental examination and Z01.20 Active cleaning without abnormal findings Problem Opioid dependence, uncomplicated F11.20 Active Problem Generalized anxiety disorder F41.1 Active Medications Medication Code Code Instructions Start End Date Status Dosage System Date Amoxicillin [facility] 52408-07 500 MG Orally 1 capsule 09-05 every 8 [place] [address]-67 7.5-325 MG 1 tablet as taminophen 66-01 Orally every 4-6 needed hrs p.r.n. for Seroquel XR [facility] 35640-71 400 MG Orally 2 tablet in 84-39 Once a day in the evening the evening Benztropine [facility] 32519-47 1 MG Orally 1 tablet Mesylate 00-00 Twice a day Warfarin Sodium [facility] 88485-46 5 MG Orally as take 5mg 05-01 directed. daily except Wed take 7.5 mg ProAir HFA [facility] 33646-46 108 (90 Base) Dec 12, 1 to 2 puffs 51-85 MCG/ACT 2015 as needed Inhalation every for 5 hrs shortness of breath. Cymbalta [facility] 10870-03 60 MG Orally 2 capsule 37-01 Once a day Seroquel XR [facility] 40824-80 200 MG Orally August 22, 1 tablet 82-39 every evening 2015 with 400mg to equal 600mg Procedures Procedure Coding System Code Date INTRAORL-PERIAPICAL 1 FILM 69446 CPT-4 D0220 Jan 31, 2016 LTD ORAL EVALUATION - PROBLEM FOCUS CPT-4 D0140 Jan 31, 2016 Results No Known Results Summary Purpose eClinicalWorks Submission
--- OUTSIDE RECORDS SUMMARY | 2017-08-08 13:20 | External Medical Summary ---
[...] End Status Dosage System Date Date Clonazepam [facility] [address]-77 0.5 MG Orally 1 tablet Once a day daily, may have 1/2 tablet prn daily Lovastatin [facility] [address]-14 20 MG Orally November 01, 1 tablet Once a day 2014 with a meal Paxil [facility] [address]-30 30 MG Orally 2 tablet Once a day in the evening Benztropine [facility] [address]-24 1 MG Orally 1 tablet Mesylate Twice a day Warfarin Sodium [facility] 63704350811 5 Orally Two 1 tablet times a Week on Saturday and Saturday Hydrocodone-Matthew [facility] [address]-55 10-325 MG/15ML 1 tablet taminophen Orally QID Seroquel [facility] [address]-82 400 MG Orally 2 tablet Once a day at bedtime Procedures Procedure Coding System Code Date PROTIME INR, IN HOUSE CPT-4 86088 Jan 27, 2015 Results Name Result Date Reference Range Unit Abnormality Flag In House Protime INR Summary Purpose eClinicalWorks Submission
--- OUTSIDE RECORDS SUMMARY | 2017-08-08 13:21 | External Medical Summary ---
[...] Date Status [place] [address]-65 60 MG Orally 2 capsule 37-01 Once a day Hydrocodone-Acet NDC 08732-39 10-325 MG/15ML 1 tablet aminophen 71-07 Orally QID Benztropine NDC 76232-88 1 MG Orally 1 tablet Mesylate 00-00 Twice a day Lovastatin NDC 59215-63 20 MG Orally November 01, 1 tablet 76-06 Once a day 2014 [place] [address]-54 5 MG Orally as take 7.5mg 05- [place] [address]-46 400 MG Orally 1 tablet 79-10 Once [...]
--- OUTSIDE RECORDS SUMMARY | 2017-08-08 13:21 | External Medical Summary ---
[...] of other 286.3 Active clotting factors Problem retirement (current) use of Z79.01 Active anticoagulants Problem Chronic fatigue syndrome 780.71 Active Medications No Known Medications Results No Known Results Summary Purpose eClinicalWorks Submission
--- OUTSIDE RECORDS SUMMARY | 2017-08-08 13:21 | External Medical Summary ---
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 51651-350 1 MG Orally 1 tablet Mesylate 0-00 Twice a day Results No Known Results Summary Purpose Contents [facility] Submission
--- OUTSIDE RECORDS SUMMARY | 2017-08-08 13:21 | External Medical Summary ---
[...] Status Dosage System Date [place]eroquel [place]R NDC 14203-93 400 MG Orally August 22, 1 tablet in 84-39 Once a day along 2015 the evening with 200mg to equal 600mg Lovastatin NDC 38552-18 20 MG Orally November 01, 1 tablet 76-06 Once a day 2014 with a meal Seroquel XR NDC 57755-11 400 MG Orally 1 tablet in 84-39 Once [place] [address]-17 5 MG Orally as take 7.5mg 05- [place] [address]-69 1 MG Orally 1 tablet Mesylate 00-00 Twice a day Seroquel XR NDC 16058-68 200 MG Orally August 22, 1 tablet 82-39 every evening 2015 with 400mg to equal 600mg Cymbalta NDC 44906-22 60 MG Orally 2 capsule 37-01 Once a day Hydrocodone-Acet NDC 79387-84 10-325 MG/15ML 1 tablet aminophen 71-07 Orally QID Procedures Procedure Coding System Code Date OFFICE VISIT, EST-MOD. COMPLEXITY (25 MIN) CPT-4 28994 August 23, 2015 Vital Signs Date/Time: August 23, 2015 Temperature 98.8 F Height 76.25 in Weight 228.8 lbs Blood Pressure Diastolic 68 mm Hg Blood Pressure Systolic 112 mm Hg Cardiac Monitoring Heart Rate 101 /min BMI 27.67 Index Respiratory Rate 16 /min Results No Known Results Summary Purpose eClinicalWorks Submission
--- OUTSIDE RECORDS SUMMARY | 2017-08-08 13:21 | External Medical Summary ---
[...] Date Status Dosage System Date Seroquel XR [facility] 31710-28 400 MG Orally 1 tablet in 84-39 [place] [address]-48 1 MG Orally 1 tablet Mesylate 00-00 [place] [address]-17 5 MG Orally as take 5mg 05-01 directed. daily except Wed take 7.5 [place] [address]-13 60 MG Orally 2 capsule 37-01 [place] [address]-60 200 MG Orally August 22, 1 tablet 82-39 every evening 2015 with 400mg to equal 600mg ProAir HFA [facility] 06454-82 108 (90 Base) Dec 12, 1 to 2 puffs 51-85 MCG/ACT 2015 as needed Inhalation every for 5 hrs shortness of breath. Procedures Procedure Coding System Code Date LTD ORAL EVALUATION - PROBLEM FOCUS CPT-4 D0140 Jan 30, 2016 Results No Known Results Summary Purpose eClinicalWorks Submission
--- OUTSIDE RECORDS SUMMARY | 2017-08-08 13:21 | External Medical Summary | Referral Summary ---
:1965 Author Organization [facility] Address [address] [place] [address] Care Team Providers Name Role Phone Juan Pablo Gomes Primary Care Physician Encounter VC Date(s): 02/06/17 - 02/06/17 [facility] [address] [place] [address] Discharge Disposition: 01-Home or Self Care Attending Physician: Artem Salvador MD Problem List Condition Effective Dates Status Health [...] initiation of Alteration in Nutrition Plan of [id number] added automatically by system based on initiation of At Risk for Infection in Nutrition Planof [id number] added automatically by system based on initiation of Risk for Injury Plan of [id number] from NOT FOUND collected 04/26/16 15:47:00 [id number] added automatically by system based on initiation of Bowel Dysfunction Plan of [id number] added automatically by system based on initiation of Impaired Spontaneous Ventilation Plan of [id number] added automatically by system based on initiation of Knowledge Deficit Plan of [id number] from NOT FOUND collected 04/26/16 15:47:00 MANAGER CONCRETE Allergies, Adverse Reactions, Alerts No Known Medication [...] Sigmoid Colon3 04/20/16 1auto-populated from documented surgical [id number] from documented surgical [id number] from documented surgical case Social History Social History Type Response Smoking Status Light tobacco smoker; Type: Pipe entered on: 09/25/13
--- OUTSIDE RECORDS SUMMARY | 2017-08-08 13:21 | External Medical Summary ---
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
--- OUTSIDE RECORDS SUMMARY | 2017-08-08 13:21 | External Medical Summary ---
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 Procedures Procedure Coding System Code Date OFFICE VISIT, EST-LOW COMPLEXITY (15 MIN.) CPT-4 07056 Dec 02, 2015 Vital Signs Date/Time: Dec 02, 2015 Temperature 98.8 F Height 76.25 in Weight 230.8 lbs Blood Pressure Diastolic 72 mm Hg Blood Pressure Systolic 106 mm Hg Cardiac Monitoring Heart Rate 82 /min BMI 27.91 Index Respiratory Rate 16 /min Results No Known Results Summary Purpose eClinicalWorks Submission
[2017-08-08] MEDS: LR 1,000 ML IV SCH ×3 (13:54→20:42)
--- NOTE | 2017-08-08 15:24 | Anesthesia Preoperative Report ---
Anesthesia Preoperative Record - Date and Time Date: 08/08/17 Preoperative Diagnosis: Robotic Inc hernia repair K43.2 D68.51 Proposed Procedure: Robot Incisional Hernia Repair NPO Since Date: 08/08/17 NPO Since Time: 00:00 Allergies/Adverse Reactions: Allergies Allergy/AdvReac Type Severity Reaction Status Date / Time No Known Drug Allergies Allergy Unknown Verified 08/08/17 13:44 - Vital Signs Vital Signs: Temperature 98.2 F 08/08/17 13:17 Pulse Rate 95 08/08/17 13:45 Respiratory Rate 16 08/08/17 13:17 Blood Pressure 116/71 08/08/17 13:17 Pulse Oximetry 91 08/08/17 13:17 Height and Weight: Height 6 ft 3 in Weight 120.1 kg Body Mass Index 33.0 - Medications Inpatient Medications: Current Medications Lactated Ringer's (Lactated Ringers) 1,000 mls @ 50 mls/hr IV .Q20H JAMES Last Admin: 08/08/17 13:54 Dose: 50 mls/hr Sodium Chloride (Iv Flush) 10 ml IV PRN PRN PRN Reason: Flushing Home Medications: Home Medications Medication Instructions Recorded Confirmed Type Quetiapine Fumarate [Seroquel Xr] 800 mg PO HS #0 09/22/15 08/08/17 History Sertraline [Zoloft] 200 mg PO DAILY 01/18/17 08/08/17 History L-Methylfolate 1 tab PO DAILY 06/25/17 08/08/17 History Seroquel (quetiapine) 50 mg tablet 50 mg PO BID PRN 06/25/17 08/08/17 History benztropine 0.5 mg tablet 0.5 mg PO DAILY tab 06/25/17 08/08/17 History cariprazine 6 mg capsule 6 mg PO DAILY 06/25/17 08/08/17 History dextroamphetamine-amphetamine 30 30 mg PO BID 06/25/17 08/08/17 History mg tablet lactobacillus combination no.4 3 3,000 cell PO DAILY 06/25/17 08/08/17 History billion cell capsule multivitamin,dz-vdru-lsyxlpog 1 tab PO DAILY 06/25/17 08/08/17 History tablet trazodone 100 mg tablet 1 - 3 tab PO HS PRN tab 06/25/17 08/08/17 History Lyrica (pregabalin) 150 mg capsule 150 mg PO TID cap 07/17/17 08/08/17 History Pradaxa (dabigatran etexilate) 150 1 cap PO BID 30 Days #60 07/17/17 08/07/17 History mg capsule albuterol sulfate HFA 90 1 - 2 puff ORAL INH PRN PRN 25 07/17/17 08/08/17 History mcg/actuation aerosol inhaler Days #8 lovastatin 20 mg tablet 20 mg PO DAILY 30 Days #30 tab 07/17/17 08/08/17 History Is Patient on Beta Antonia?: No - Medical History Respiratory: Reports: Asthma, Pulmonary Embolism (x2), Pneumonia Cardiovascular: Reports: High Cholesterol Gastrointestional: Reports: Other (hernia) Neuro/Musculoskeletal: Reports: HX.MS.OSAR, Depression, Other (Dystonia) Renal/Endocrine: DENIES: Diabetes Mellitus Type 1, Diabetes Mellitus Type 2, Renal Failure, Dialysis, Thyroid Disease, Weight Loss, Weight Gain, Other Other History: Reports: Blood Transfusions (no reaction), Other (numerous blood clots) - Surgical History Respiratory Surgery/Treatments: Reports: Other (small portion of lung removed r/ t blood clot) GI Surgery/Treatments: Reports: Other (ruptured bowel 2016) Comment Only: Colon Resection (ileostomy- reversal) Anesthesia Reactions: None Hx Family Anesthesia Reaction: No History of Motion Sickness: No - Social History Smoking Status: Current some day smoker Substance Use Type: does not use Alcohol Intake Frequency: does not drink - Pertinent Findings Laboratory: CBC and BMP 08/08/17 13:36 EKG: Sinus Rhythm - Physical Exam Respiratory Exam: Present: lungs clear, bilateral breath sounds equal Cardiovascular Exam: Present: regular rate and rhythm, no murmur - Airway Assessment Mallampati Score: II TMD: 3 Fingerbreadths Neck Extension: fair Overall Assessment: no airway concerns - ASA ASA Score: 2 - Plan Anesthesia: General TIVA - Discussion Discussion: Discussed risks/options/alternatives of anesthesia and questions answered. Patient consents. Nursing pain assessment noted. Present for Discussion: family member Attestation Statement: Prior to the delivery of any anesthetic medication, I examined the patient, developed the plan, obtained the patient's consent and discussed the risk and benefits of the procedure with the patient/guardian. - Additional Information Seen by Anesthesia: Yes
[2017-08-08] MEDS ORDERED: ROCURONIUM 50 MG/5 ML INJECTION IVP ONE (15:38)
[2017-08-08] MEDS ORDERED: FentaNYL 250 MCG/5 ML INJECTION ONE (15:38)
[2017-08-08] MEDS ORDERED: PROPOFOL 20 ML ONE (15:38)
[2017-08-08] MEDS ORDERED: ONDANSETRON 4 MG/2 ML INJECTION ONE (15:38)
[2017-08-08] MEDS ORDERED: DiphenhydrAMINE 50 MG/ML INJECTION ONE (15:38)
[2017-08-08] MEDS ORDERED: KETAMINE 500 MG/10 ML INJECTION ONE (15:39)
[2017-08-08] MEDS ORDERED: BUPIVACAINE 0.25%/EPI 1:200,000 30ml SDV ONE (15:40)
--- NOTE | 2017-08-08 16:06 | General Surgery Procedure Note ---
Date of Procedure: 08/08/17 Surgeon: Austin Bryologist: Michael Briones APRN Postoperative Diagnosis: Ventral incisional hernia Procedure: Combination Open and Robotic assisted laparoscopic ventral incisional hernia repair with mesh. Estimated Blood Loss: See Anesthesia Record. Pathology: none sent
[2017-08-08] MEDS ORDERED: BUPIVACAINE 0.25%/EPI 1:200,000 30ml SDV INFIL ONE (17:13)
[2017-08-08] MEDS ORDERED: SUGAMMADEX 200mg/2ml INJECTION IVP ONE (18:09)
[2017-08-08] MEDS ORDERED: MORPHINE SULFATE 10 MG/ML VIAL ONE (18:18)
[2017-08-08] MEDS ORDERED: SALINE FLUSH 10ml SYRINGE ONE (18:18)
[2017-08-08] MEDS ORDERED: ONDANSETRON 4 MG/2 ML INJECTION IVP PRN ×2 (18:36→19:53)
[2017-08-08] MEDS ORDERED: KETOROLAC 30 MG/ML INJECTION IVP ONE (18:36)
[2017-08-08] MEDS ORDERED: DiphenhydrAMINE 50 MG/ML INJECTION IVP PRN (18:36)
[2017-08-08] MEDS: HYDROMORPHONE 2 MG/ML INJECTION IVP PRN ×2 (18:44→18:59)
[2017-08-08] MEDS: FentaNYL 100 MCG/2 ML INJECTION IVP PRN ×2 (19:13→19:18)
[2017-08-08] MEDS ORDERED: ALBUTEROL 2.5mg/3ml (0.083%) NEB AEROSOL PRN (19:53)
--- NOTE | 2017-08-08 20:28 | Anesthesia Postoperative Note ---
- Date and Time Date: 08/08/17 Time: 20:27 - Status Patient Participated in Evaluation: Patient Participated in Person Vital Signs: Temperature 98.2 F 08/08/17 19:32 Pulse Rate 98 08/08/17 19:30 Respiratory Rate 16 08/08/17 19:30 Blood Pressure 140/93 H 08/08/17 19:30 Pulse Oximetry 93 08/08/17 19:30 Respiratory Function: Airway Patent Cardiovascular Function: Regular Pulse EKG: Sinus Rhythm Mental Status: Alert and Oriented Pain Intensity: 4 Hydration: Taking PO Fluids Complications During Recover: None Apparent - Follow-Up Instructions Instructions: Per Surgeon
[2017-08-08] MEDS ORDERED: QUETIAPINE FUMARATE 800 MG PO SCH (21:00)
[2017-08-08] MEDS: KETOROLAC 30 MG/ML INJECTION IVP PRN (21:29)
[2017-08-08] MEDS: PREGABALIN 150 MG CAPSULE PO SCH (21:51)
[2017-08-08] MEDS: HYDROCODONE/APAP 5mg/325mg TABLET PO PRN (23:21)
[2017-08-09] MEDS: HYDROMORPHONE 2 MG/ML INJECTION IVP PRN ×6 (01:50→21:31)
[2017-08-09] MEDS: LR 1,000 ML IV SCH ×2 (05:02→21:25)
[2017-08-09] MEDS: POLYETHYL GLYCOL 3350 17gm PACKET PO SCH (08:09)
[2017-08-09] MEDS: BENZTROPINE 1 MG TABLET PO SCH (08:09)
[2017-08-09] MEDS: PREGABALIN 150 MG CAPSULE PO SCH ×3 (08:09→21:28)
[2017-08-09] MEDS: SERTRALINE 100 MG TABLET PO SCH (08:10)
[2017-08-09] MEDS: KETOROLAC 30 MG/ML INJECTION IVP PRN (08:16)
[2017-08-09] MEDS: SALINE FLUSH 10ml SYRINGE IV PRN ×2 (08:17→17:22)
[2017-08-09] MEDS ORDERED: BENZTROPINE MESYLATE 0.5 MG PO SCH (09:00)
[2017-08-09] MEDS: CARIPRAZINE HCL 6 MG PO SCH (09:24)
--- NOTE | 2017-08-09 13:35 | Operative Note ---
DATE OF SERVICE 08/08/2017 SURGEON Evan Avila MD OPERATOR [employer] Michael Briones APRN PREOPERATIVE DIAGNOSIS Incisional hernia. POSTOPERATIVE DIAGNOSIS Incisional hernias. PROCEDURE Combined open and robotic assisted laparoscopic repair of incisional hernias. ANESTHESIA General endotracheal EBL AND FLUIDS Please see chart. BRIEF HISTORY/INDICATIONS Mr. Borjas is a 51-year-old gentleman who recently presented to my office as a result of a symptomatic incisional hernia. The patient was found to have a fascial defect along his prior midline incision. The patient had had a prior history for a bout of ruptured diverticulitis. Patient presents today to undergo elective repair of his incisional hernia. For completeness please refer to notes included in the patient's chart. FINDINGS An attempted laparoscopic approach was initially performed. Upon gaining entry into the abdomen laparoscopically, patient was found to have extensive adhesions. I therefore elected to proceed with conversion to an open procedure. A portion of his prior midline incision was opened and adhesiolysis was undertaken. The patient was found to have several fascial defects along his prior midline incision. A piece of mesh was placed intraperitoneally and the fascia was closed. The mesh was incorporated in a laparoscopic fashion. The small bowel, omentum, colon, and peritoneal surfaces which were visualized were without noted abnormalities. DESCRIPTION OF PROCEDURE After informed consent was obtained, patient was brought to the operative suite , placed on the table in a supine fashion. Abdomen was then prepped and draped in sterile fashion. Formal time-out was then completed. 0.25% Marcaine with epinephrine was injected just beneath the left subcostal margin. A 4-5 mm incision was made overlying the area of analgesia. A Veress needle was then introduced through the small incision and advanced in a left subcostal fashion through the underlying abdominal wall and into the peritoneal cavity. Pneumoperitoneum was established to a patient pressure of 15 mmHg utilizing carbon dioxide. Additional 0.25% Marcaine with epinephrine was injected along the left lateral abdominal wall along its midportion. A 2 cm incision was then made overlying the area of analgesia. A 12 mm Optiport was then placed overlying the da Kyler camera and the port was then advanced through the fascial layers and subsequently through the fascia and into the peritoneal cavity. The trocar portion was then removed and a laparoscope was then inserted. One could see that there was only a small window adjacent to where the port had been placed and there were considerable adhesions between the small bowel and the abdominal wall. There was no evidence for injury to the adjacent viscus. There was not enough visible window however to place any additional ports. I elected to err on the cautious side and proceed with a laparotomy given these laparoscopic findings. Next, an incision was made through his prior existing incision upon the mid abdomen. Dissection was carried down to the deep subcuticular tissues. Fascia and then peritoneum was opened to the extent of the incision. There were several fascial defects noted during the process of opening his prior incision site. These fascial defects ranged on the order from about 5 mm up to about 3 cm near the umbilicus. Next, [facility] clamps were then placed upon the edges of the fascia and adhesiolysis was then undertaken. Fortunately, the patient had a fair amount of omentum and the omentum was easily swept away from the peritoneum and the adhesions were not dense in nature. One was able to sweep the omentum away from the anterior abdominal wall out laterally to the left. One could then see the prior port that was placed along the left lateral mid abdominal wall. The viscus surrounding this port placement was carefully inspected multiple times and I did not see any evidence for enterotomy or injury to the adjacent viscus. Also, the adhesions were dissected out into the left upper quadrant. One could then see the Veress needle that had been previously placed as it coursed through the anterior abdominal wall within the left upper quadrant. Veress needle was then removed. Adhesiolysis was then carried out along the right lateral abdominal wall. Again, fortunately there were fairly loose adhesions between the omentum and the anterior abdominal wall and these adhesions were easily taken down and out laterally. One could then see where his loop ileostomy had been recently taken down. There were some more dense adhesions present within the right lower quadrant at this site. Under direct visualization, careful and meticulous dissection was performed and the small bowel that was adherent to the anterior abdominal wall at this location was dissected away from the peritoneum without difficulty. At this point in time, the majority of his prior midline incision had been opened and the incision itself was 15 cm in length. The surrounding anterior abdominal wall had been dissected out circumferentially around this 15 cm incision. Next a piece of Ventralex mesh that was 25 cm in length and 15 cm in width and had had an Echo delivery system upon it was then placed within the midabdomen and centrally located just beneath the midline incision. The edges of the fascia were then dissected out circumferentially. [facility] clamps placed upon the fascia and I had my assistant at surgery then retract the skin out laterally. The larger fascial defect near the umbilicus was dissected out. Next, the fascia was then closed in a running fashion with #1 PDS suture. The tubing portion of the Echo delivery system was allowed to exit through the midportion of the fascial closure. Next, attention was then directed towards closure of the subcutaneous tissues and skin. The base of the umbilicus had been dissected off of the underlying hernia sac as the prior midline incision was opened. Base of the umbilicus was then imbricated to the underlying fascia. First a small subcuticular purchase of the base of the umbilicus was obtained followed by a small purchase of underlying fascia. Deep subcutaneous tissues were then closed in a running fashion with 3-0 Vicryl in layers. Skin was then closed with pamela. The tubing of the Echo delivery system was then allowed to exit out through the midportion of the incision. Additionally it should be noted that prior to fascial closure, a 12 mm assist port was placed within the left upper quadrant out laterally. An additional 8 mm da Kyler port was also placed within the left lower quadrant just anterior to the left anterior iliac spine. These ports were placed under direct visualization with the hand inside the peritoneum as the trocar was being advanced into the peritoneal cavity. Additionally it should be noted that instrument, sponge and needle counts were performed and found to be correct prior to fascial closure. Skin was then closed with pamela. Pneumoperitoneum was then reestablished. The da Kyler camera was then placed through the camera port that remained to be in place within the left lateral midabdomen. The balloon portion of the Echo delivery system was then inflated and the mesh was then brought forth until it was taut against the anterior abdominal wall. I then placed two 2-0 V-Loc sutures within the peritoneal cavity under direct visualization. Robot was then docked at a 90 degree angle from the patient's right. The patient was rotated slightly towards his right and the bed was slightly flexed. Next, I then proceeded to the Thumb Reading Kyler console. The mesh was then imbricated circumferentially to the anterior abdominal wall in a running fashion utilizing the 2-0 V-Loc sutures that had been placed previously. Once the mesh had been completely imbricated circumferentially, the needles that were utilized were then removed. The Echo delivery system was then deflated and also withdrawn out through the AirSeal port. Prior areas of dissection were inspected and found to be hemostatic in nature. Next, robot was then undocked. Laparoscope was then placed within the AirSeal port within the left upper quadrant. The camera port was then removed. The fascia at this port site was then closed in a [id number] fashion laparoscopically utilizing a laparoscopic suture passer and 0 Vicryl. Remaining 8 mm port was then removed from the left lower quadrant. AirSeal port was then removed. The fascial opening at the AirSeal port was then closed in a [id number] fashion with 0 Vicryl. Remaining laparoscopic incisions were then closed with pamela. The patient was awakened from his anesthetic and sent back to the recovery room once deemed in stable condition. Additionally, it should be noted that Michael Briones APRN, was present throughout the entire case and played a pivotal role in providing assistance and exposure during the course of the procedure. GABRIELLA
--- NOTE | 2017-08-09 14:49 | Progress Note ---
DATE 08/09/2017 FINDINGS Mr. Borjas was seen this morning on rounds. He was complaining of a component of incisional discomfort as one would expect. VITALS: Afebrile. Normotensive. Please refer to EMR. ABDOMEN: Abdomen soft along the lateral aspects. The patient does have some incisional tenderness as one would expect along the midline. No evidence for guarding or rebound. LABORATORY/RADIOGRAPH EVALUATION The patient had a CBC today and his white count is 6.7. Hemoglobin is stable at 12.5. BMP was without marked abnormalities. ASSESSMENT 51-year-old gentleman status post combined open and robotic-assisted laparoscopic repair of incisional hernias. Overall patient doing well. PLAN Will continue with current care. It is my intuition the patient will likely require hospitalization over the next 24-48 hours for pain control and to make sure that his bowel activity resumes without difficulty. Will continue to follow along closely. GABRIELLA
[2017-08-09] MEDS: ENOXAPARIN 40 MG/0.4 ML INJECTION SQ SCH (15:31)
[2017-08-09] MEDS: TRAZODONE 100 MG TABLET PO PRN (21:36)
[2017-08-10] MEDS: HYDROMORPHONE 2 MG/ML INJECTION IVP PRN (01:11)
[2017-08-10] MEDS: HYDROCODONE/APAP 5mg/325mg TABLET PO PRN ×4 (03:38→23:08)
[2017-08-10] MEDS: KETOROLAC 30 MG/ML INJECTION IVP PRN ×2 (05:40→20:23)
[2017-08-10] MEDS: POLYETHYL GLYCOL 3350 17gm PACKET PO SCH (09:29)
[2017-08-10] MEDS: ENOXAPARIN 40 MG/0.4 ML INJECTION SQ SCH (09:29)
[2017-08-10] MEDS: SERTRALINE 100 MG TABLET PO SCH (09:30)
[2017-08-10] MEDS: PREGABALIN 150 MG CAPSULE PO SCH ×3 (09:30→20:21)
[2017-08-10] MEDS: BENZTROPINE 1 MG TABLET PO SCH (09:30)
[2017-08-10] MEDS: CARIPRAZINE HCL 6 MG PO SCH (09:31)
[2017-08-10] MEDS ORDERED: Bisacodyl EC TAB 5 MG TABLET PO ONE (09:53)
--- NOTE | 2017-08-10 10:10 | Progress Note ---
DATE OF SERVICE 08/08/2017 FINDINGS Mr. Borjas was up and ambulating this morning. He states he still has been without bowel movement. He states his abdominal discomfort is improved. ABDOMEN: Soft. Minimal incisional tenderness. LABORATORY/RADIOGRAPHIC EVALUATION The patient had a CBC today that was unremarkable. Hemoglobin is stable at 13.3. White count stable at 7.7. BMP without marked abnormalities. ASSESSMENT 31-year-old gentleman status post combined robotic-assisted laparoscopic and open incisional herniorrhaphy with incorporation of mesh. Overall patient doing well. PLAN Will give some Dulcolax tablets today, maybe a brown cow is needed as well. Once his bowel activity has returned and he is tolerating a regular diet, will discharge to home. GABRIELLA
[2017-08-10] MEDS ORDERED: BISACODYL 10 MG SUPPOSITORY RECTALLY ONE (14:13)
[2017-08-10] MEDS ORDERED: IOHEXOL 350mg/ml 75ml INJECTION ONE (15:39)
[2017-08-10] MEDS ORDERED: SALINE FLUSH 10ml SYRINGE ONE (15:39)
[2017-08-10] MEDS ORDERED: SENNA LIQUID (X-PREP) 74 ML PO ONE (15:43)
[2017-08-11] MEDS: HYDROCODONE/APAP 5mg/325mg TABLET PO PRN ×3 (04:11→19:35)
[2017-08-11] MEDS: BENZTROPINE 1 MG TABLET PO SCH (08:54)
[2017-08-11] MEDS: POLYETHYL GLYCOL 3350 17gm PACKET PO SCH (08:54)
[2017-08-11] MEDS: PREGABALIN 150 MG CAPSULE PO SCH ×3 (08:55→22:27)
[2017-08-11] MEDS: SERTRALINE 100 MG TABLET PO SCH (08:55)
[2017-08-11] MEDS: CARIPRAZINE HCL 6 MG PO SCH (08:56)
--- NOTE | 2017-08-11 09:20 | CT Scan Report ---
Indication: TACHYCARDIA, SOA PROCEDURE: CT angio pulm emboli: Encounter: Initial Comparison: Chest x-ray dated June 18, [address] dated May 14, 2017 Technique: Axial CT pulmonary angiographic phase images were performed through the chest after the administration of intravenous contrast. Coronal and Sagittal MIP reconstructed images were created and reviewed. Automated Exposure Control and Iterative Reconstruction dose reducing techniques were utilized. Contrast: Omnipaque 350 72 mL Findings: Pulmonary arteries: Exam is diagnostic to the subsegmental pulmonary arterial level. No filling defects identified to suggest a pulmonary embolus. Bibasilar atelectasis. Upper lung recinos are clear. No pneumothorax or effusion. The central airways are patent. No axillary or mediastinal adenopathy. Heart size is borderline enlarged without pericardial effusion. The upper abdomen shows no acute findings. Impression: No pulmonary embolus. Mild basilar atelectasis. There is a preliminary report by virtual radiologic. .
[2017-08-11] MEDS: KETOROLAC 30 MG/ML INJECTION IVP PRN (22:28)
[2017-08-11] MEDS: METOCLOPRAMIDE 10mg/2ml INJECTION IVP PRN (22:54)
[2017-08-11] MEDS: TRAZODONE 100 MG TABLET PO PRN (23:01)
[2017-08-12] MEDS: HYDROMORPHONE 2 MG/ML INJECTION IVP PRN ×5 (01:54→20:10)
[2017-08-12] MEDS: METOCLOPRAMIDE 10mg/2ml INJECTION IVP PRN ×2 (05:02→11:27)
[2017-08-12] MEDS: KETOROLAC 30 MG/ML INJECTION IVP PRN ×2 (05:06→11:27)
[2017-08-12] MEDS ORDERED: BISACODYL 10 MG SUPPOSITORY RECTALLY ONE (08:19)
--- NOTE | 2017-08-12 08:28 | Progress Note ---
DATE 08/11/2017 FINDINGS Iain was seen this morning on rounds. He states that he is feeling somewhat more distended and having a component of generalized abdominal discomfort. Last evening apparently he did have some development of tachycardia and a component of some shortness of breath. CTA of chest was obtained to rule out pulmonary emboli. Fortunately, this was negative. This morning, the patient denies any shortness of breath. As stated above, he still has a component of some generalized abdominal discomfort. OBJECTIVE VITALS: Temperature 96.8. Patient is slightly tachycardic this morning with a pulse of 112. Respirations 18, blood pressure 125/95, SaO2 92% on room air. CHEST: Clear to auscultation bilaterally. HEART: Regular rate and rhythm. Normal auscultated. ABDOMEN: Visualization of the abdomen does reveal it to be somewhat distended. His incision was inspected and found to be clean, dry and intact along the midline. Dressings overlying trocar sites are also dry and intact. Palpation of the abdomen did not reveal any tenderness along the lateral abdominal wall. He does have some incisional tenderness as one would expect. There was however no evidence for guarding or rebound. LABORATORY/RADIOGRAPHIC EVALUATION The patient's white count remains stable at 8.8 today. Hemoglobin is stable at 14.2. BMP was obtained today and found to be essentially within normal limits. ASSESSMENT 51-year-old gentleman status post combined open and robotic assisted laparoscopic repair of incisional hernias. Overall patient doing well with the development of some increasing abdominal distention and tachycardia of uncertain etiology. PLAN The patient did state he had several bowel movements yesterday. Overall his pain is fairly well-controlled with oral narcotics. I am a little concerned to send the patient home today given his onset of tachycardia and his onset of some generalized abdominal discomfort. Will go ahead and keep the patient in the hospital today and continue to monitor closely. Will repeat lab tomorrow and reassess. Patient does have a history for hypercoagulable state and was placed back on his Pradaxa to reinitiate his anticoagulation. [facility]
[2017-08-12] MEDS: D5-1/2NS 1,000 ML IV SCH ×3 (08:43→18:42)
--- NOTE | 2017-08-12 09:07 | General Surgery Progress Note ---
Subjective Patient reports: no flatus, no bowel movement Narrative: Feeling worse this morning, bloating, distention. Mild nausea, no emesis. No BM since 08/10. Urine is dark. - Vital Signs Last Vital Signs Temp 98 F 08/12/17 08:24 Pulse 125 H 08/12/17 08:24 Resp 14 08/12/17 08:24 BP 140/74 H 08/12/17 08:31 Pulse Ox 89 L 08/12/17 08:24 - Laboratory Result Diagrams: 08/12/17 04:10 08/12/17 04:10 - Radiology KUB upright: air fluid levels, very dilated small bowel, official report pending , but looks like ileus. - Abnormal Exam Abdominal: obese, hypoactive bowel sounds, firm, distended, tender - Normal Exam General: awake, alert, oriented Cardiovascular: regular rate Respiratory: no labored breathing Psychiatric: normal affect Assessment and Plan (1) Postoperative incisional hernia Current Visit: Yes Status: Acute (2) Ileus, postoperative Current Visit: Yes Status: Acute (3) Depression Current Visit: Yes Status: Chronic Qualifiers: Depression Type: major depressive disorder Active/Remission status: in remission of unspecified degree (4) History of pulmonary embolism Current Visit: Yes Status: Chronic (5) retirement (current) use of antithrombotics/antiplatelets Current Visit: Yes Status: Chronic Plan: Post combination open and robotic incisional hernia repair. Appears he has developed post op ileus. Will DC regular diet, start sips and chips. Dulcolax suppository. Azithromycin IV daily for bowel stimulation. Continue home Pradaxa due to history of PE. IV fluids, daily labs. Hospital Course Summary Disclaimer: The visit summary below is not to be considered part of the above Progress Note.
--- NOTE | 2017-08-12 09:23 | XRay Report ---
Indication: possible ileus, tightening abdomen PROCEDURE: XR abdomen 2V: Encounter: Initial Comparison: None. Findings: There are multiple loops of mildly dilated small bowel in the mid to upper abdomen suggesting a small bowel obstruction or ileus. There is a small amount of gas in the large bowel. There is some left basilar pulmonary atelectasis. No subdiaphragmatic free air. No soft tissue mass or abnormal calcification. Impression: Dilated loops of predominantly small bowel suggesting small bowel obstruction versus ileus. .
[2017-08-12] MEDS: SERTRALINE 100 MG TABLET PO SCH (09:48)
[2017-08-12] MEDS: PREGABALIN 150 MG CAPSULE PO SCH ×3 (09:48→21:56)
[2017-08-12] MEDS: BENZTROPINE 1 MG TABLET PO SCH (09:48)
[2017-08-12] MEDS: POLYETHYL GLYCOL 3350 17gm PACKET PO SCH (09:49)
[2017-08-12] MEDS: AZITHROMYCIN IV 250 MG in NS 100 ML IV SCH (09:49)
[2017-08-12] MEDS: CARIPRAZINE HCL 6 MG PO SCH (09:58)
[2017-08-12] MEDS: QUETIAPINE 50 MG TABLET PO PRN (12:24)
[2017-08-12] MEDS ORDERED: HYDROMORPHONE 2 MG/ML INJECTION IVP ONE ×2 (14:02)
--- NOTE | 2017-08-12 16:44 | Consult Note ---
Consult Information - Data of Consult Consult date: 08/12/17 Requesting Physician: Evan Avila MD Primary Care Provider: Juan Pablo Gomes, - Consult Narrative Reason for consult: Tachycardia, leukopenia History of present illness: Iain Borjas is seen in consultation from Dr. Avila for further evaluation of tachycardia and leukopenia. He has also had a mild elevation in temperature at 99.2. He is postop day 4 for a combined open and robotic assisted laparoscopic repair of incisional hernias. Postoperatively, he was doing fairly well until August 10, when he became mildly tachycardic. A CT angio was done to rule out PE. This was negative for PE, but did show atelectasis. On 08/12/17, he became hypoxic at 88% on room air and more tachycardic with rates up to 134. He started having some mild abdominal distention on 08/11/17, but when he woke up on 08/12/17, his abdomen was much more distended. He was made NPO. His last bowel movement was moderate-sized, on 08/10/17. Abdominal x-rays revealed an ileus. He also had reduced urinary output with 200 mL out for dayshift. He has also been somnolent but arouses with verbal. Iain was seen on 08/12/17. Again, he was somnolent but aroused with verbal. At times questions had to be repeated in order to gauge her response. He complained of abdominal pain, but added that was expected. He denied nausea or vomiting. He denied shortness of breath or chest pain. He denied cough, fever, chills or sweating. He denied any sinus congestion. He states he held his anticoagulant for a week before surgery. This nurse has not been able to wake him up satisfactorily to safely go for a walk today. 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 Bipolar disorder. Generalized anxiety disorder. Attention deficit disorder. Chronic fatigue syndrome. Chronic venous insufficiency. Chronic kidney disease - unknown stage but has been at least stage III in the past. Fibromyalgia. Hypercoaguable state due to Factor V Leiden deficiency. Multilple DVTs - beginning in 1992. Pulmonary embolus - 2010 in [place] when he was off of blood thinners. Superficial thrombosis of the left medial thigh - 11/23/2014. Chronic anticoagulation for factor V Leiden. Bowel perforation . Hypercholesterolemia Surgical History: -Combined open and robotic assisted laparoscopic repair of incisional hernias 08/08/17 (Dr. Avila). -Colon resection with ileostomy due to Secoral bowel perforation -04/20/2016 at [facility]. - Ileostomy reversal 02/2017. -Patient reports surgery for removal of pulmonary emboli from lungs. -Total colonoscopy (negative except mild internal hemorrhoids) and excision of 2.5cm sebaceous cyst from back - 02/17/[address] Varela at [facility] in [place], [place]. Family History: Family History (Last Updated 07/17/17 @ 13:35 by Amarilys Briones, PIPE INSPECTOR) Father Lymphoma Mother Diabetes Family History Updates: Father of lymphoma. Mother with diabetes and recurrent UTI. An aunt committed suicide. Brother of AIDS. Family History: As Above - Social History Smoking status: Current some day smoker Substance use type: does not use Alcohol intake frequency: does not drink Current occupational status: disabled Review of Systems ROS unobtainable: other (difficult to obtain due to somnolence) - Constitutional Constitutional: Present: as per HPI - EENMT Nose: Absent: obstruction Mouth/Throat: Absent: sore throat, changes in swallowing - Cardiovascular Cardiovascular: Absent: chest pain, palpitations, edema - Respiratory Respiratory: Absent: cough, dyspnea - Gastrointestinal Gastrointestinal: Present: as per HPI - Genitourinary Genitourinary: Present: as per HPI - Musculoskeletal Musculoskeletal: Present: other (hasn't been out of bed yet today) Musculoskeletal Comments: chronic pain - Integumentary/Breasts Integumentary: Present: wounds (postop incisions). Absent: rash - Neurological Neurological: Present: weakness - Psychiatric Psychiatric: Present: as per HPI, depression (history) Medications Home Medications Medication Instructions Recorded Confirmed Type Quetiapine Fumarate [Seroquel Xr] 800 mg PO HS #0 09/22/15 08/08/17 History Sertraline [Zoloft] 200 mg PO DAILY 01/18/17 08/08/17 History L-Methylfolate 1 tab PO DAILY 06/25/17 08/08/17 History Seroquel (quetiapine) 50 mg tablet 50 mg PO BID PRN 06/25/17 08/08/17 History benztropine 0.5 mg tablet 0.5 mg PO DAILY tab 06/25/17 08/08/17 History cariprazine 6 mg capsule 6 mg PO DAILY 06/25/17 08/08/17 History dextroamphetamine-amphetamine 30 30 mg PO BID 06/25/17 08/08/17 History mg tablet lactobacillus combination no.4 3 3,000 cell PO DAILY 06/25/17 08/08/17 History billion cell capsule multivitamin,[id number] 1 tab PO DAILY 06/25/17 08/08/17 History tablet trazodone 100 mg tablet 1 - 3 tab PO HS PRN tab 06/25/17 08/08/17 History Lyrica (pregabalin) 150 mg capsule 150 mg PO TID cap 07/17/17 08/08/17 History Pradaxa (dabigatran etexilate) 150 1 cap PO BID 30 Days #60 07/17/17 08/07/17 History mg capsule albuterol sulfate HFA 90 1 - 2 puff ORAL INH PRN PRN 25 07/17/17 08/08/17 History mcg/actuation aerosol inhaler Days #8 lovastatin 20 mg tablet 20 mg PO DAILY 30 Days #30 tab 07/17/17 08/08/17 History Allergies Allergy/AdvReac Type Severity Reaction Status Date / Time morphine AdvReac Severe Abdominal Verified 08/08/17 18:58 Pain Exam Vital Signs: Temperature 99.2 F 08/12/17 15:35 Pulse Rate 129 H 08/12/17 15:35 Respiratory Rate 18 08/12/17 15:35 Blood Pressure 122/69 08/12/17 15:35 Pulse Oximetry 92 08/12/17 15:35 Height/Weight/BMI: Height 1.91 m Weight 123 kg Body Mass Index 33.0 - Constitutional Present: well nourished, well developed, somnolent - Routine HEENT Exam Head: Present: normocephalic Eye: Present: PERRL (pinpoint). Absent: conjunctival icterus, scleral injection ENT: Present: mucous membranes dry - Routine Neck Exam Present: supple - Routine Respiratory Exam Present: decreased breath sounds - Routine Cardiovascular Exam Present: RRR, S1, S2, tachycardia - Routine Abdominal Exam Present: tenderness, distended. Absent: normoactive bowel sounds (hypoactive) Comments: Surgical incision is without local erythema or drainage, but there has been some ecchymotic changes to the skin in between the pamela - Routine Extremities Exam Present: no edema, pulses intact - Routine Skin Exam Present: pallor. Absent: dry (clammy) - Routine Neurological Exam Present: normal speech. Absent: alert (somnolent) - Routine Psychiatric Exam Present: cooperative Results - Labs CBC & Chem 7: 08/12/17 17:05 08/12/17 04:10 Assessment and Plan Assessment and Plan: Assessment S/P combined open and robotic assisted laparoscopic repair of incisional hernias on 08/08/[address] Avila Hypoxia Leukopenia Oliguria Ileus Chronic kidney disease - unknown stage but has been at least stage III in the past Hypercoagulable state due to Factor V Leiden deficiency Multiple DVTs - beginning in 1992 Pulmonary embolus - 2010 in [place] when he was off of blood thinners. Chronic anticoagulation for factor V Leiden Bowel perforation Hypercholesterolemia Chronic venous insufficiency Bipolar disorder, Generalized anxiety disorder, Attention deficit disorder, Chronic fatigue syndrome Chronic pain, Fibromyalgia Plan/recommendations Tachycardia Check EKG Continue IV fluids. CT angiogram done on 08/10/17 was negative for PE. Hypoxia Portable chest x-ray ordered. Check ABG. DuoNeb 4 times a day. Leukopenia and mild elevation in temperature Chest x-ray and UA Check lactate and procalcitonin Agree with repeating CBC Oliguria Agree with 500 ML fluid bolus as already ordered by Michael Briones APRN. BUN increased mildly to 24, creatinine is stable at 1.1. Follow closely. Monitor intake and output. Somnolence High risk IV narcotic meds in use; minimize as able. ABG ordered. Postop cares and ileus Per attending Pt is acutely ill; additional recommendations pending following results of above workup. We will follow along with you. Thanks for the consult. DVT Prophylaxis: Pradaxa Resuscitation Status: Full Code - Physician Narrative Physician: Osmani Valentino MD Narrative: Date: 08/12/17 Time: 1839 Have independently interviewed and examined pt. Chart reviewed. Case discussed with my PIPE INSPECTOR. Care plan developed with my supervision; agree with above. Rough day-feels very tired. States 'can't sleep when I want to.' Ab feel bloated and full. No nausea, but no flatus. Not SOA or congested - does look hard for him to breath deep due to ab bloating. Urinating well. Lungs: decreased, no distress; shallow breathing. CV: tachy, regular AB: soft distended, bs decreased MSE: awake alert Gen: looks weak and tired Plan: Continue with supportive post op care. Encourage IS and slow/deep breathing for pulmonary toilet. IVF to maintain volume status. Activities as able to help strength and bowel function. Monitor lab. Hospital Course Summary Disclaimer: The visit summary below is not to be considered part of the above Progress Note. Hospital Course: 08/12: Hosp consult Tachycardia Check EKG Continue IV fluids. CT angiogram done on 08/10/17 was negative for PE. Hypoxia Portable chest x-ray ordered. Check ABG. DuoNeb 4 times a day. Leukopenia and mild elevation in temperature Chest x-ray and UA Check lactate and procalcitonin Agree with repeating CBC Oliguria Agree with 500 ML fluid bolus as already ordered by Michael Briones APRN. BUN increased mildly to 24, creatinine is stable at 1.1. Follow closely. Monitor intake and output. Somnolence High risk IV narcotic meds in use; minimize as able. ABG ordered. Postop cares and ileus Per attending
--- NOTE | 2017-08-12 17:01 | XRay Report ---
Indication: postop hypoxia PROCEDURE: XR chest 1V: Encounter: Initial Comparison: None. Findings: There is cardiomegaly with probably vascular congestion. No clear interstitial palmar edema. There is some persistent bibasilar pulmonary atelectasis, right greater than left. The exam is slightly expiratory in nature. Trachea is midline. No subdiaphragmatic free air. Impression: Persistent bibasilar pulmonary atelectasis. No definite pleural effusion or lobar consolidation. .
--- NOTE | 2017-08-12 20:07 | Progress Note ---
DATE OF SERVICE 08/12/2017 FINDINGS Mr. Borjas was seen earlier on rounds. He was complaining of a fair amount of abdominal discomfort. He denied much in the way of nausea or vomiting. He was stating that his abdomen was beginning to "swell." PHYSICAL EXAM VITAL SIGNS: Afebrile. T-max 99.2. The patient did develop progressive tachycardia today with a pulse of around 130 when seen earlier today. Blood pressure was stable at 122/69, SAO2 92% on 2 L/nasal cannula. CHEST: Breath sounds are diminished in the bases bilaterally. HEART: Regular rate and rhythm. ABDOMEN: Visualization of the abdomen did reveal it to be markedly more distended today. One could see some bruising adjacent to the prior midline incision. The patient was begun on anticoagulation over the course of the weekend as a result of his history for hypercoagulable state. He likely has a component of some bleeding beneath the incision resulting in this ecchymosis. Palpation of the abdomen revealed it to be fairly taut. Incisions along the left lateral abdominal wall were clean, dry, and intact with no ecchymosis or significant erythema. Abdomen was mildly tender upon palpation along the lateral abdominal wall. There was no evidence for involuntary guarding or rebound. The patient did have some more tenderness along his prior midline incision as one would expect. LABORATORY/RADIOGRAPHIC EVALUATION Given the patient's worsening condition this afternoon I did go ahead and repeat a CBC. White count this morning was 4.8. White count this evening remains stable at 4.4. Hemoglobin is 13.2. Did have a slight left shift with 9 % bands. Given his tachycardia and worsening condition I did consult hospitalist for additional care. ABG was obtained and he was not acidotic with a pH of 7.39. PCO2 was 40. PO2, however, was low at 53.2. Bicarb was normal at 24. Procalcitonin and plasma lactate level was obtained as well this afternoon, given his worsening condition. Fortunately this was within normal limits. Radiographically, the patient had a KUB and upright obtained earlier today that did reveal evidence for an ileus. ASSESSMENT 51-year-old gentleman status post combined open and robotic-assisted laparoscopic repair of multiple incisional hernias. Patient with history for hypercoagulable state. Patient with development of postoperative ileus. PLAN I do feel that his tachycardia and his increasing abdominal pain are a result of an ileus and not a result of a missed enterotomy or significant intraabdominal process. His white count remains stable. He does not have elevation of his plasma lactate level or procalcitonin level. I had placed an order earlier today to place an NG., I have called nursing staff this evening and they have informed me that they have obtained a "full canister" of gastric contents after placing the NG. Nursing staff also states the patient is feeling somewhat better after placement of the NG. Will continue with current care. Will repeat lab and continue to follow with serial abdominal examinations. Hopefully the patient's tachycardia and abdominal pain will continue to improve after placement of NG. The patient was also begun on azithromycin as a prokinetic agent. The patient may require placement of a PICC line and initiation of hyperalimentation if he continues to have prolonged ileus. GABRIELLA
[2017-08-12] MEDS: ALBUTEROL/IPRATROPIUM 2.5mg-0.5mg/3ml NEB AEROSOL SCH (21:47)
[2017-08-13] MEDS: KETOROLAC 30 MG/ML INJECTION IVP PRN ×2 (00:02→08:34)
[2017-08-13] MEDS: D5-1/2NS 1,000 ML IV SCH ×4 (01:28→20:45)
[2017-08-13] MEDS: HYDROMORPHONE 2 MG/ML INJECTION IVP PRN ×5 (05:26→20:55)
[2017-08-13] MEDS: ALBUTEROL/IPRATROPIUM 2.5mg-0.5mg/3ml NEB AEROSOL SCH ×4 (07:46→20:51)
[2017-08-13] MEDS: CARIPRAZINE HCL 6 MG PO SCH (09:37)
[2017-08-13] MEDS: AZITHROMYCIN IV 250 MG in NS 100 ML IV SCH (09:42)
[2017-08-13] MEDS: PREGABALIN 150 MG CAPSULE PO SCH ×3 (09:45→21:01)
[2017-08-13] MEDS: SERTRALINE 100 MG TABLET PO SCH (09:45)
[2017-08-13] MEDS: BENZTROPINE 1 MG TABLET PO SCH (09:45)
[2017-08-13] MEDS: POLYETHYL GLYCOL 3350 17gm PACKET PO SCH (09:49)
--- NOTE | 2017-08-13 11:17 | Progress Note ---
- Date 08/13/17 Subjective: Patient is seen resting in bed this morning. Dr. Avila is seeing patient at this time as well and plans to order CT abd and start atbx due to continued abd pain and bandemia. Pt c/o abd pain 5/10. Reports he rated it 6 yesterday, but it was probably more of a 7-8. He is feeling slightly better. Not sleeping well due to interruptions by staff. Had a loose BM this am. No urine output since 1 pm yesterday. Cathed prior to my arrival with 500cc's output. No SOA or chest pain. Objective Vital signs: Temperature 97.0 F 08/13/17 07:15 Pulse Rate 108 H 08/13/17 07:15 Respiratory Rate 20 08/13/17 07:48 Blood Pressure 115/82 08/13/17 07:15 Pulse Oximetry 92 08/13/17 07:48 Height/Weight/BMI: Height 1.91 m Weight 124.2 kg Body Mass Index 33.0 - Constitutional Present: no acute distress, well nourished, well developed - Routine HEENT Exam Head: Present: normocephalic, atraumatic - Routine Respiratory Exam Present: CTA bilaterally. Absent: wheezes - Routine Cardiovascular Exam Present: no murmur, tachycardia (mild) - Routine Abdominal Exam Present: tenderness (diffuse), distended, wound (central abdominal incision and 3 smaller incisions on L abd all have pamela intact with no sign of infection) . Absent: normoactive bowel sounds - Routine Extremities Exam Present: no edema, normal capillary refill - Routine Skin Exam Present: dry, warm - Routine Neurological Exam Present: alert, oriented X3 - Routine Lymphatic Exam Lymphatic: Absent: adenopathy - Routine Psychiatric Exam Present: normal affect, cooperative Results - Labs CBC & Chem 7: 08/13/17 04:15 08/13/17 04:15 - ABG Interpretation ABG results: 08/12/17 17:44 ABG pH 7.392 ABG pCO2 40 ABG pO2 53.2 L ABG HCO3 24.2 ABG Total CO2 25.4 ABG O2 Saturation 86.9 L ABG Base Excess -0.6 Assessment and Plan Assessment and Plan: Assessment S/P combined open and robotic assisted laparoscopic repair of incisional hernias on 08/08/[address] Avila Hypoxia Leukopenia Bandemia (not POA) Oliguria Ileus Urinary retention - Ellis placed 08/13 Chronic kidney disease - unknown stage but has been at least stage III in the past Hypercoagulable state due to Factor V Leiden deficiency Multiple DVTs - beginning in 1992 Pulmonary embolus - 2010 in [place] when he was off of blood thinners. Chronic anticoagulation for factor V Leiden Bowel perforation ( w/ colon resection and loop ileostomy 04/20/2016 , with takedown of ileostomy 03/08) Hypercholesterolemia Chronic venous insufficiency Bipolar disorder, Generalized anxiety disorder, Attention deficit disorder, Chronic fatigue syndrome Chronic pain, Fibromyalgia Plan Kidney function worsening Cr 1.1-->1.3, BUN 24-->28 despite IVF's running at 150cc's/hr. Previous CTA chest on 08/10. Ellis cath placed due to urinary retention. Decreased UOP. Monitor I&O closely. Tachycardia persists, but is low 100's vs 120's yesterday. BP stable. Dr. Avila has ordered CT abd with contrast - will watch urine OP and hold CT or proceed w/o dye if UOP isn't adequate. Pip/Tazo started by Dr. Avila. Bands increased 9-->23. Continues on 2L O2. Remains NPO (sips and chips) w/ NG tube. DVT Prophylaxis: Pradaxa Resuscitation Status: Full Code - Time spent with patient Time with patient PN: 25 minutes - Physician Narrative Physician: Osmani Valentino MD Narrative: Date: 08/13/17 Time: 1114 Have independently interviewed and examined pt. Chart reviewed. Case discussed with my PA. Care plan developed with my supervision; agree with above. Rough day-ab feels very bloated and distended. No flatus. Tolerating NG tube. Had increase ab pain/bloating when given IV contrast for CT scan. Very sleepy this afternoon-slept poorly last night and hard to get rest today between nursing care and CT scan. Ellis placed today secondary to decreased urine output and bladder scan showing 601. Lungs: decrease bilaterally, no distress on RA. CV: tachy, regular AB: distended, BS not present EXT: +2 edema MSE: awake alert appropriate Plan: Agree with IV Zosyn for antimicrobial coverage. Ellis placed due to retention-continue. Continue with IVF to maintain hydration and help improve renal function -- should provide protection against IV contrast. Will stop Toradol to prevent kidney injury. Continue Dilaudid for pain control. Encourage pulmonary toilet. Monitor lab. Hospital Course Summary Disclaimer: The visit summary below is not to be considered part of the above Progress Note. Hospital Course: 08/12: Hosp consult Tachycardia Check EKG Continue IV fluids. CT angiogram done on 08/10/17 was negative for PE. Hypoxia Portable chest x-ray ordered. Check ABG. DuoNeb 4 times a day. Leukopenia and mild elevation in temperature Chest x-ray and UA Check lactate and procalcitonin Agree with repeating CBC Oliguria Agree with 500 ML fluid bolus as already ordered by Michael Briones APRN. BUN increased mildly to 24, creatinine is stable at 1.1. Follow closely. Monitor intake and output. Somnolence High risk IV narcotic meds in use; minimize as able. ABG ordered. Postop cares and ileus Per attending 08/13/17 Kidney function worsening Cr 1.1-->1.3, BUN 24-->28 despite IVF's running at 150cc's/hr. Previous CTA chest on 08/10. Ellis cath placed due to urinary retention. Decreased UOP. Monitor I&O closely. Tachycardia persists, but is low 100's vs 120's yesterday. BP stable. Dr. Avila has ordered CT abd with contrast - will watch urine OP and hold CT or proceed w/o dye if UOP isn't adequate. Pip/Tazo started by Dr. Avila. Bands increased 9-->23. Continues on 2L O2. Remains NPO (sips and chips) w/ NG tube.
[2017-08-13] MEDS: PIPERACILLIN/TAZOBACTAM 3.375 GM in NS 100 ML IV SCH ×3 (11:18→21:01)
[2017-08-13] MEDS ORDERED: IOHEXOL 300mg/ml 100ml INJECTION ONE (14:14)
[2017-08-13] MEDS ORDERED: SALINE FLUSH 10ml SYRINGE ONE (14:15)
--- NOTE | 2017-08-13 15:57 | Progress Note ---
DATE 08/13/2017 FINDINGS Iain this morning stated that overall he was feeling slightly better. He was still experiencing a component of some abdominal discomfort. OBJECTIVE VITALS: Temperature 97.0. The patient less tachycardic but still remains tachycardic with a pulse of 108, respirations 20, blood pressure 115/82, SaO2 92 % on 2 liters per nasal cannula. ABDOMEN: Visualization of the abdomen does not reveal it to be as distended as yesterday. Ecchymosis to the right of the incision has improved in its overall appearance this morning. His abdomen is significantly less tender today upon palpation. There is no evidence for guarding or rebound. LABORATORY/RADIOGRAPHIC EVALUATION Patient had a CBC today and his white count remains stable at 4000. Hemoglobin is slightly down at 11.6. He does however have a left shift today that was not present yesterday with 23% neutrophils. BMP was obtained and found to be without marked abnormalities. ASSESSMENT 51-year-old gentleman status post combined open and robotic assisted laparoscopic repair of incisional hernias. Patient with development of postoperative ileus. Patient with new finding of bandemia. PLAN Although from a clinical standpoint the patient's abdominal pain is improved, I am a little concerned with this increasing bandemia. Will go ahead and place the patient empirically on antibiotics. Will go ahead and obtain a CT scan of his abdomen and pelvis for further evaluation today as well. Overall, it is my intuition that the patient is just suffering from a postoperative ileus without a significant postoperative complication being present. However, as above, will err on the cautious side today and proceed with further evaluation. GABRIELLA
[2017-08-13] MEDS: METOCLOPRAMIDE 10mg/2ml INJECTION IVP PRN (16:44)
[2017-08-14] MEDS: HYDROMORPHONE 2 MG/ML INJECTION IVP PRN ×2 (00:24→06:09)
[2017-08-14] MEDS: D5-1/2NS 1,000 ML IV SCH ×4 (00:25→21:19)
[2017-08-14] MEDS: PIPERACILLIN/TAZOBACTAM 3.375 GM in NS 100 ML IV SCH ×4 (03:46→21:15)
[2017-08-14] MEDS ORDERED: Bisacodyl EC TAB 5 MG TABLET PO ONE (07:49)
[2017-08-14] MEDS ORDERED: BISACODYL 10 MG SUPPOSITORY RECTALLY ONE (07:49)
--- NOTE | 2017-08-14 07:53 | General Surgery Progress Note ---
Subjective Patient reports: feels better (a little better since NG is back to LIS), no flatus, no bowel movement Narrative: Abd still very tight, but less than yesterday. Denies nausea since NG back to LIS. Polanco with medium yellow urine. - Vital Signs Last Vital Signs Temp 97.9 F 08/14/17 07:39 Pulse 101 H 08/14/17 07:39 Resp 18 08/14/17 07:39 BP 124/82 08/14/17 07:39 Pulse Ox 90 08/14/17 07:39 - Laboratory Result Diagrams: 08/14/17 04:10 08/14/17 04:10 - Radiology v-Rad CT report indicates small bowel obstruction likely in the area of the ileum - Abnormal Exam Abdominal: hypoactive bowel sounds, firm, distended (but slightly less than yesterday), incision(s) (eccchymosis at the caudad most end and some skin edge necrosis close to umbilicus), other (NG to LIS, dark fluid in canister 750 last 12 hours which would include contrast from the CT) - Normal Exam General: awake, alert, oriented, no acute distress Cardiovascular: regular rate ( low 100's, improved from the 120's 2 days ago.) Respiratory: clear bilaterally, no labored breathing Male: other (medium yellow urine in polanco, output is better since fluid bolus ) Psychiatric: normal affect Assessment and Plan (1) Postoperative incisional hernia Current Visit: Yes Status: Acute (2) Ileus, postoperative Current Visit: Yes Status: Acute (3) Depression Current Visit: Yes Status: Chronic Qualifiers: Depression Type: major depressive disorder Active/Remission status: in remission of unspecified degree (4) History of pulmonary embolism Current Visit: Yes Status: Chronic (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 Avila has a chance to review the CT scan. Is on Azithromycin daily for ileus. WBC 11.3 no Bands reported, on Zosyn Hospital Course Summary Disclaimer: The visit summary below is not to be considered part of the above Progress Note. Hospital Course: 08/09 POD #1 ASSESSMENT 51-year-old gentleman status post combined open and robotic-assisted laparoscopic repair of incisional hernias. Overall patient doing well. PLAN Will continue with current care. It is my intuition the patient will likely require hospitalization over the next 24-48 hours for pain control and to make sure that his bowel activity resumes without difficulty. Will continue to follow along closely. 08/10 developed tachycardia 120's-130's and crackles per nursing, he has history of PE and hypercoagulable state, CT angio obtained and found to be neg for PE. 08/11 POD #3 ASSESSMENT 51-year-old gentleman status post combined open and robotic assisted laparoscopic repair of incisional hernias. Overall patient doing well with the development of some increasing abdominal distention and tachycardia of uncertain etiology. PLAN The patient did state he had several bowel movements yesterday. Overall his pain is fairly well-controlled with oral narcotics. I am a little concerned to send the patient home today given his onset of tachycardia and his onset of some generalized abdominal discomfort. Will go ahead and keep the patient in the hospital today and continue to monitor closely. Will repeat lab tomorrow and reassess. Patient does have a history for hypercoagulable state and was placed back on his Pradaxa to reinitiate his anticoagulation. 08/12: Hosp consult Tachycardia Check EKG Continue IV fluids. CT angiogram done on 08/10/17 was negative for PE. Hypoxia Portable chest x-ray ordered. Check ABG. DuoNeb 4 times a day. Leukopenia and mild elevation in temperature Chest x-ray and UA Check lactate and procalcitonin Agree with repeating CBC Oliguria Agree with 500 ML fluid bolus as already ordered by Michael Briones APRN. BUN increased mildly to 24, creatinine is stable at 1.1. Follow closely. Monitor intake and output. Somnolence High risk IV narcotic meds in use; minimize as able. ABG ordered. Postop cares and ileus Per attending 08/13/17 Kidney function worsening Cr 1.1-->1.3, BUN 24-->28 despite IVF's running at 150cc's/hr. Previous CTA chest on 08/10. Polanco cath placed due to urinary retention. Decreased UOP. Monitor I&O closely. Tachycardia persists, but is low 100's vs 120's yesterday. BP stable. Dr. Avila has ordered CT abd with contrast - will watch urine OP and hold CT or proceed w/o dye if UOP isn't adequate. Pip/Tazo started by Dr. Avila. Bands increased 9-->23. Continues on 2L O2. Remains NPO (sips and chips) w/ NG tube.
--- NOTE | 2017-08-14 07:58 | CT Scan Report ---
Indication: increasing bandemia, rule out abscess, perforation PROCEDURE: CT abdomen pelvis w con: Encounter: Initial Comparison: Radiographs dated August 12, 2017 Technique: Axial CT images were performed through the abdomen and pelvis after the administration of intravenous contrast. Coronal and sagittal two-dimensional reformats. Automated Exposure Control and Iterative Reconstruction dose reducing techniques were utilized. Contrast: Omnipaque 300 100 mL Findings: Consolidation in both lower lobes. Heart is enlarged. The liver shows no enhancing mass or bile duct obstruction. The gallbladder is unremarkable. Nasogastric tube is in the stomach which contains some high attenuation material. The spleen, pancreas and adrenal glands are within normal limits. Kidneys show no acute findings. IVC filter in place. No abdominal or pelvic adenopathy. Ellis catheter within a decompressed bladder. Tiny foci of free air in the ventral abdomen and pelvis likely related to prior surgery. Colonic anastomosis in the sigmoid region. The colon is decompressed distally with abrupt transition to gas-filled distended colon at the splenic flexure best seen on axial image #33. Small bowel is dilated and fluid-filled to 5.5 cm in diameter throughout the proximal to midportion with a region of gradual transition seen in the ventral abdomen near the area of recent surgery where there is a small amount of fluid seen in the anterior omental region and overlying subcutaneous gas and induration at the surgical incision sites. The distal ileum is relatively decompressed although still fluid-filled. Impression: Evidence of a high-grade distal partial small bowel obstruction in the anterior abdomen likely due to adhesion. There is a preliminary report by [facility]. .
[2017-08-14] MEDS: ALBUTEROL/IPRATROPIUM 2.5mg-0.5mg/3ml NEB AEROSOL SCH ×4 (08:35→18:55)
[2017-08-14] MEDS: AZITHROMYCIN IV 250 MG in NS 100 ML IV SCH (10:03)
[2017-08-14] MEDS: BENZTROPINE 1 MG TABLET PO SCH (10:04)
[2017-08-14] MEDS: SERTRALINE 100 MG TABLET PO SCH (10:04)
[2017-08-14] MEDS: PREGABALIN 150 MG CAPSULE PO SCH ×3 (10:04→21:19)
[2017-08-14] MEDS: CARIPRAZINE HCL 6 MG PO SCH (10:05)
[2017-08-14] MEDS: POLYETHYL GLYCOL 3350 17gm PACKET PO SCH (10:05)
--- NOTE | 2017-08-14 10:10 | Progress Note ---
- Date 08/14/17 Subjective: F-U: Consulted 08/12 for leukocytosis and tachycardia. Patient s/p elective ventral hernia repair by Dr. Avila on 08/08. Developed SBO. Patient is seen this morning sitting in bed. He reports he is feeling a little bit better today. Rates his pain as a 6. He says yesterday it was more like a 7- 8. Respiratory therapy was with patient while I was there and states he is doing very well. He is using his Acapella and incentive spirometry routinely. Patient has no appetite. He felt worse after the CT scan due to the barium, but when they hooked his NG tube to LIS, he had a large amount out and felt better. He has not passed any stool today. States the last time he passed anything was yesterday morning. No chest pain or shortness of breath. Objective Vital signs: Temperature 97.9 F 08/14/17 07:39 Pulse Rate 101 H 08/14/17 07:39 Respiratory Rate 22 08/14/17 08:35 Blood Pressure 124/82 08/14/17 07:39 Pulse Oximetry 93 08/14/17 08:35 Height/Weight/BMI: Height 1.91 m Weight 123.1 kg Body Mass Index 33.0 - Constitutional Present: no acute distress, well nourished, well developed - Routine HEENT Exam Head: Present: normocephalic, atraumatic - Routine Respiratory Exam Present: CTA bilaterally. Absent: wheezes - Routine Cardiovascular Exam Present: no murmur, tachycardia (mild) - Routine Abdominal Exam Present: tenderness (diffuse), distended. Absent: normoactive bowel sounds ( hypoactive) - Routine Extremities Exam Present: no edema, normal capillary refill - Routine Skin Exam Present: dry, warm - Routine Neurological Exam Present: alert, oriented X3 - Routine Lymphatic Exam Lymphatic: Absent: adenopathy - Routine Psychiatric Exam Present: normal affect, cooperative Results - Labs CBC & Chem 7: 08/14/17 04:10 08/14/17 04:10 - ABG Interpretation ABG results: 08/12/17 17:44 ABG pH 7.392 ABG pCO2 40 ABG pO2 53.2 L ABG HCO3 24.2 ABG Total CO2 25.4 ABG O2 Saturation 86.9 L ABG Base Excess -0.6 - Imaging and Cardiology CT scan - abdomen Additional comments: Date of Exam: 08/13/17 Indication: increasing bandemia, rule out abscess, perforation PROCEDURE: CT abdomen pelvis w con: Findings: Consolidation in both lower lobes. Heart is enlarged. The liver shows no enhancing mass or bile duct obstruction. The gallbladder is unremarkable. Nasogastric tube is in the stomach which contains some high attenuation material. The spleen, pancreas and adrenal glands are within normal limits. Kidneys show no acute findings. IVC filter in place. No abdominal or pelvic adenopathy. Ellis catheter within a decompressed bladder. Tiny foci of free air in the ventral abdomen and pelvis likely related to prior surgery. Colonic anastomosis in the sigmoid region. The colon is decompressed distally with abrupt transition to gas-filled distended colon at the splenic flexure best seen on axial image #33. Small bowel is dilated and fluid-filled to 5.5 cm in diameter throughout the proximal to midportion with a region of gradual transition seen in the ventral abdomen near the area of recent surgery where there is a small amount of fluid seen in the anterior omental region and overlying subcutaneous gas and induration at the surgical incision sites. The distal ileum is relatively decompressed although still fluid-filled. Impression: Evidence of a high-grade distal partial small bowel obstruction in the anterior abdomen likely due to adhesion. Assessment and Plan Assessment and Plan: Assessment S/P combined open and robotic assisted laparoscopic repair of incisional hernias on 08/08/[address] Avila Hypoxia Leukopenia Bandemia (not POA) Oliguria Ileus Urinary retention - Ellis placed 08/13 Chronic kidney disease - unknown stage but has been at least stage III in the past Hypercoagulable state due to Factor V Leiden deficiency Multiple DVTs - beginning in 1992 Pulmonary embolus - 2010 in [place] when he was off of blood thinners. Chronic anticoagulation for factor V Leiden Bowel perforation ( w/ colon resection and loop ileostomy 04/20/2016 , with takedown of ileostomy 03/08) Hypercholesterolemia Chronic venous insufficiency Bipolar disorder, Generalized anxiety disorder, Attention deficit disorder, Chronic fatigue syndrome Chronic pain, Fibromyalgia Plan Kidney function improved today. Continue Ellis for now in event he goes back to OR. Tachycardia persists, but is improving. Running low 100s. CT abd reveals high-grade distal partial small bowel obstruction in the anterior abdomen likely due to adhesion. Pulmonary lobar consolidation also seen on CT. Suspect bandemia could be r/t possible pneumonia. Continue Zosyn (Day#2) and is on Zithromax for ileus - continue for pulmonary coverage. He has been weaned off of oxygen. Maintaining low 90's off of oxygen. Remains NPO (sips and chips) w/ NG tube. DVT Prophylaxis: SCD's, SQ Heparin Resuscitation Status: Full Code - Time spent with patient Time with patient PN: 25 minutes - Physician Narrative Physician: Osmani Valentino MD Narrative: Date: 08/14/17 Time: 1415 Have independent interviewed and examined pt. Chart reviewed. Case discussed with my PA. Care plan developed with my supervision; agree with above. Doing about the same - ab still very full/bloated/uncomfortable. Not as bloated as yesterday-feels less taught and notes can take deeper breaths today. No nausea. No flatus. Not having cough/congestion. Lungs: decreased, no distress CV: regular AB: soft, distended, BS not present EXT: no edema MSE: awake alert appropriate Plan: Continue with NG for bowel decompression. Encourage ambulation. Continue with IVF to maintain hydration. Monitor lab. Hospital Course Summary Disclaimer: The visit summary below is not to be considered part of the above Progress Note. Hospital Course: 08/09 POD #1 ASSESSMENT 51-year-old gentleman status post combined open and robotic-assisted laparoscopic repair of incisional hernias. Overall patient doing well. PLAN Will continue with current care. It is my intuition the patient will likely require hospitalization over the next 24-48 hours for pain control and to make sure that his bowel activity resumes without difficulty. Will continue to follow along closely. 08/10 developed tachycardia 120's-130's and crackles per nursing, he has history of PE and hypercoagulable state, CT angio obtained and found to be neg for PE. 08/11 POD #3 ASSESSMENT 51-year-old gentleman status post combined open and robotic assisted laparoscopic repair of incisional hernias. Overall patient doing well with the development of some increasing abdominal distention and tachycardia of uncertain etiology. PLAN The patient did state he had several bowel movements yesterday. Overall his pain is fairly well-controlled with oral narcotics. I am a little concerned to send the patient home today given his onset of tachycardia and his onset of some generalized abdominal discomfort. Will go ahead and keep the patient in the hospital today and continue to monitor closely. Will repeat lab tomorrow and reassess. Patient does have a history for hypercoagulable state and was placed back on his Pradaxa to reinitiate his anticoagulation. 08/12: Hosp consult Tachycardia Check EKG Continue IV fluids. CT angiogram done on 08/10/17 was negative for PE. Hypoxia Portable chest x-ray ordered. Check ABG. DuoNeb 4 times a day. Leukopenia and mild elevation in temperature Chest x-ray and UA Check lactate and procalcitonin Agree with repeating CBC Oliguria Agree with 500 ML fluid bolus as already ordered by Michael Briones APRN. BUN increased mildly to 24, creatinine is stable at 1.1. Follow closely. Monitor intake and output. Somnolence High risk IV narcotic meds in use; minimize as able. ABG ordered. Postop cares and ileus Per attending 08/13/17 Kidney function worsening Cr 1.1-->1.3, BUN 24-->28 despite IVF's running at 150cc's/hr. Previous CTA chest on 08/10. Ellis cath placed due to urinary retention. Decreased UOP. Monitor I&O closely. Tachycardia persists, but is low 100's vs 120's yesterday. BP stable. Dr. Avila has ordered CT abd with contrast - will watch urine OP and hold CT or proceed w/o dye if UOP isn't adequate. Pip/Tazo started by Dr. Avila. Bands increased 9-->23. Continues on 2L O2. Remains NPO (sips and chips) w/ NG tube. 08/14/17 Kidney function improved today. Continue Ellis for now in event he goes back to OR. Tachycardia persists, but is improving. Running low 100s. CT abd reveals high-grade distal partial small bowel obstruction in the anterior abdomen likely due to adhesion. Pulmonary lobar consolidation also seen on CT. Suspect bandemia could be r/t possible pneumonia. Continue Zosyn (Day#2) and is on Zithromax for ileus - continue for pulmonary coverage. He has been weaned off of oxygen. Maintaining low 90's off of oxygen. Remains NPO (sips and chips) w/ NG tube.
[2017-08-14] MEDS: HYDROCODONE/APAP 5mg/325mg TABLET PO PRN ×3 (10:16→21:18)
[2017-08-14] MEDS: TRAZODONE 100 MG TABLET PO PRN (21:35)
[2017-08-14] MEDS ORDERED: SORE THROAT SPRAY 20ml PO PRN (21:50)
[2017-08-15] MEDS: HYDROCODONE/APAP 5mg/325mg TABLET PO PRN (03:16)
[2017-08-15] MEDS: PIPERACILLIN/TAZOBACTAM 3.375 GM in NS 100 ML IV SCH ×4 (03:17→22:24)
[2017-08-15] MEDS: D5-1/2NS 1,000 ML IV SCH ×2 (03:58→20:44)
[2017-08-15] MEDS: ALBUTEROL/IPRATROPIUM 2.5mg-0.5mg/3ml NEB AEROSOL SCH ×4 (07:39→20:13)
--- NOTE | 2017-08-15 08:17 | Progress Note ---
DATE 08/14/2017 FINDINGS Mr. Borjas was seen this evening on rounds. He states that overall he is feeling slightly better. He did notice some flatus today after walking. OBJECTIVE VITALS: Afebrile. Normotensive. Less tachycardic. Last recorded pulse was 98. Please refer to EMR. ABDOMEN: Still appears slightly distended. Palpation of the abdomen still reveals it to be somewhat taut but improved overall. Palpation of the abdomen did not reveal any evidence for guarding or rebound. Patient continues to have some incisional discomfort. LABORATORY/RADIOGRAPHIC RESULTS Patient had a CBC today and his white count remains stable at 3.8. BMP obtained and found to be without marked abnormalities. Radiographically, the patient did have a CT scan of his abdomen and pelvis yesterday. I did review the CT scan as well as reviewed the dictated report. It does appear the patient has a high-grade distal partial small bowel obstruction. May also be consistent with an ileus pattern given the fact that the colon also contains a fair amount of air. ASSESSMENT 51-year-old gentleman status post repair of multiple incisional hernias. Patient with development of postoperative ileus versus high-grade distal small bowel obstruction. Patient showing clinical improvement. PLAN Will continue with current care. Tomorrow we may wish to proceed with placement of a PICC line and initiate hyperalimentation unless the patient would begin to show improved GI activity. Will continue to follow the patient closely. GABRIELLA
[2017-08-15] MEDS ORDERED: TPN - PHARMACY CONSULT MC ONE (08:25)
--- NOTE | 2017-08-15 08:33 | General Surgery Progress Note ---
Subjective Patient reports: no flatus Narrative: Feeling worse today, abd more tense, will get KUB upright today. He had a small BM about an hour after suppository yesterday. Denies nausea with NG in, not a lot of output. It is a small caliber NG, will have nursing flush it and advance about 2 inches. He has been several days without meaningful nutrition, will get PICC and start TPN. - Vital Signs Last Vital Signs Temp 98.5 F 08/15/17 07:23 Pulse 96 08/15/17 07:23 Resp 20 08/15/17 07:39 BP 133/83 08/15/17 07:23 Pulse Ox 94 08/15/17 07:39 - Laboratory Result Diagrams: 08/15/17 04:41 08/15/17 04:41 - Radiology KUB upright ordered for today - Abnormal Exam Abdominal: hypoactive bowel sounds, firm, distended, tender - Normal Exam General: awake, alert, oriented Cardiovascular: regular rate Respiratory: clear bilaterally, no labored breathing Abdominal: incision(s) (dressing dry, not removed today) Psychiatric: normal affect Assessment and Plan (1) Postoperative incisional hernia Current Visit: Yes Status: Acute (2) Ileus, postoperative Current Visit: Yes Status: Acute (3) Depression Current Visit: Yes Status: Chronic Qualifiers: Depression Type: major depressive disorder Active/Remission status: in remission of unspecified degree (4) History of pulmonary embolism Current Visit: Yes Status: Chronic (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 -continue Azithromycin for ileus -WBC 5.2, HGB 11.3 -Na upper end of normal at 145, TPN consult can adjust of lytes -Flush NG and advance 2 inches, get KUB upright. -DC [place], now that kidney function is better order Toradol. -U/O 1250 in about the last 10-12 hours. BUN/Cr improved at 6.0/1.0 today. -Risk for malnutrition, getting PICC and TPN consult. BGM with SSI Q6. -Pulse 99, T-max 99 Hospital Course Summary Disclaimer: The visit summary below is not to be considered part of the above Progress Note. Hospital Course: 08/09 POD #1 ASSESSMENT 51-year-old gentleman status post combined open and robotic-assisted laparoscopic repair of incisional hernias. Overall patient doing well. PLAN Will continue with current care. It is my intuition the patient will likely require hospitalization over the next 24-48 hours for pain control and to make sure that his bowel activity resumes without difficulty. Will continue to follow along closely. 08/10 developed tachycardia 120's-130's and crackles per nursing, he has history of PE and hypercoagulable state, CT angio obtained and found to be neg for PE. 08/11 POD #3 ASSESSMENT 51-year-old gentleman status post combined open and robotic assisted laparoscopic repair of incisional hernias. Overall patient doing well with the development of some increasing abdominal distention and tachycardia of uncertain etiology. PLAN The patient did state he had several bowel movements yesterday. Overall his pain is fairly well-controlled with oral narcotics. I am a little concerned to send the patient home today given his onset of tachycardia and his onset of some generalized abdominal discomfort. Will go ahead and keep the patient in the hospital today and continue to monitor closely. Will repeat lab tomorrow and reassess. Patient does have a history for hypercoagulable state and was placed back on his Pradaxa to reinitiate his anticoagulation. 08/12: Hosp consult Tachycardia Check EKG Continue IV fluids. CT angiogram done on 08/10/17 was negative for PE. Hypoxia Portable chest x-ray ordered. Check ABG. DuoNeb 4 times a day. Leukopenia and mild elevation in temperature Chest x-ray and UA Check lactate and procalcitonin Agree with repeating CBC Oliguria Agree with 500 ML fluid bolus as already ordered by Michael Briones APRN. BUN increased mildly to 24, creatinine is stable at 1.1. Follow closely. Monitor intake and output. Somnolence High risk IV narcotic meds in use; minimize as able. ABG ordered. Postop cares and ileus Per attending 08/13/17 Kidney function worsening Cr 1.1-->1.3, BUN 24-->28 despite IVF's running at 150cc's/hr. Previous CTA chest on 08/10. Ellis cath placed due to urinary retention. Decreased UOP. Monitor I&O closely. Tachycardia persists, but is low 100's vs 120's yesterday. BP stable. Dr. Avila has ordered CT abd with contrast - will watch urine OP and hold CT or proceed w/o dye if UOP isn't adequate. Pip/Tazo started by Dr. Avila. Bands increased 9-->23. Continues on 2L O2. Remains NPO (sips and chips) w/ NG tube. 08/14/17 Kidney function improved today. Continue Ellis for now in event he goes back to OR. Tachycardia persists, but is improving. Running low 100s. CT abd reveals high-grade distal partial small bowel obstruction in the anterior abdomen likely due to adhesion. Pulmonary lobar consolidation also seen on CT. Suspect bandemia could be r/t possible pneumonia. Continue Zosyn (Day#2) and is on Zithromax for ileus - continue for pulmonary coverage. He has been weaned off of oxygen. Maintaining low 90's off of oxygen. Remains NPO (sips and chips) w/ NG tube.
[2017-08-15] MEDS: POLYETHYL GLYCOL 3350 17gm PACKET PO SCH (08:46)
[2017-08-15] MEDS: SERTRALINE 100 MG TABLET PO SCH (08:46)
[2017-08-15] MEDS: AZITHROMYCIN IV 250 MG in NS 100 ML IV SCH (08:46)
[2017-08-15] MEDS: PREGABALIN 150 MG CAPSULE PO SCH ×3 (08:47→20:42)
[2017-08-15] MEDS: CARIPRAZINE HCL 6 MG PO SCH (08:47)
[2017-08-15] MEDS: BENZTROPINE 1 MG TABLET PO SCH (08:47)
--- NOTE | 2017-08-15 10:43 | XRay Report ---
Indication: F/U ileus vs SBO PROCEDURE: XR abdomen 2V: Encounter: Initial Comparison: CT dated August 13, 2017 Findings: Dilated small bowel loops are seen in the left abdomen measuring up to 6 cm in diameter. Surgical skin pamela are noted. There is colonic gas with evidence of colonic wall edema in the transverse colon. Gas is present distally to the level of the rectum. Nasogastric tube in place coiling within the stomach with the tip projecting over the area of the pylorus. Basilar atelectasis. Nondifferential air-fluid levels seen on the upright views. Impression: Generalized small and large bowel distention with nondifferential air-fluid levels could represent a postoperative ileus or partial small bowel obstruction .
[2017-08-15] MEDS: KETOROLAC 30 MG/ML INJECTION IVP PRN ×2 (12:07→20:43)
--- NOTE | 2017-08-15 13:31 | XRay Report ---
Indication: picc placement PROCEDURE: XR chest 1V: Encounter: Initial Comparison: August 12, 2017 Findings: Nasogastric tube in place extending below the diaphragm. The tip is not clearly visualized on this exam. New right PICC line in place with the tip projecting over the expected cavoatrial junction. Lungs are mildly hypoinflated with bibasilar atelectasis and small effusions. No pneumothorax. Heart size and mediastinal contours are stable. Pulmonary vascularity appears normal. Impression: New right PICC line tip projects over the expected cavoatrial junction. .
--- NOTE | 2017-08-15 13:37 | Pharmacy Consult-TPN/PPN ---
Pharmacy Consult-TPN/PPN - Laboratory Information Chemistry Turbidity < 20 (0-20) 08/15/17 04:41 Sodium 145 MEQ/L (134-144) H 08/15/17 04:41 Potassium 3.7 MEQ/L (3.6-5) 08/15/17 04:41 Chloride 109 MEQ/L (98-107) H 08/15/17 04:41 Carbon Dioxide 27 MEQ/L (22-30) 08/15/17 04:41 Anion Gap 9 meq/L (5-15) 08/15/17 04:41 BUN 6.0 MG/DL (9-20) L D 08/15/17 04:41 Creatinine 1.0 mg/dL (0.8-1.5) 08/15/17 04:41 GFR Calculation 78 08/15/17 04:41 BUN/Creatinine Ratio 6 RATIO (6-26) 08/15/17 04:41 Glucose 132 MG/DL (75-110) H 08/15/17 04:41 Calculated Osmolality 279 MOSM/KG (261-280) 08/15/17 04:41 Calcium 8.3 MG/DL (8.4-10.2) L 08/15/17 04:41 Icterus Index < 2 (0-7) 08/15/17 04:41 Total Creatine Kinase 251 U/L (55-170) H 08/13/17 04:15 Plasma Lactate 0.8 MMOL/L (0.6-2.2) 08/12/17 22:48 Procalcitonin 0.46 NG/ML 08/12/17 17:20 Specimen Hemolysis < 15 (0-25) 08/15/17 04:41 Intake and Output 08/14/17 08/15/17 08/16/17 06:59 06:59 06:59 Intake Total 3405.0 / 3405.0 3257.5 / 3257.5 905.000 / 905.000 Output Total 4325 / 4325 3450 / 3450 915 / 915 Balance -920.0 / -920.0 -192.5 / -192.5 -10.000 / -10.000 Weight 124.2 kg 123.1 kg 122.2 kg Intake: IV 3405.0 / 3405.0 2997.5 / 2997.5 905.000 / 905.000 Azithromycin IV 250 mg In Ns 100 / 100 100 / 100 100.000 / 100.000 100 ml @ 100 mls/hr IV Q24H [facility] Rx#:[id number] D5-1/2Ns 1,000 ml @ 150 mls/hr 2905.0 / 2905.0 2497.5 / 2497.5 805 / 805 IV .[id number] [facility] Rx#:[id number] Piperacillin/Tazobactam 3.375 400 / 400 400 / 400 gm In Ns 100 ml @ 200 mls/hr IV Q6H [facility] Rx#:[id number] Oral 260 / 260 Output: Urine 1300 / 1300 Urine Amount (Catheter) 1275 / 1275 2550 / 2550 675 / 675 Gastric Drainage 1750 / 1750 900 / 900 240 / 240 Right Nare 1750 / 1750 900 / 900 240 / 240 Other: Urine Appearance Clear Clear Clear Urine Color Yellow Dark Yellow Light [place] Urine Odor Normal Stool Characteristics Mucoid Stool Color Brown Stool Consistency Soft Size of Bowel Movement Small Small # Bowel Movements 1 1 - Consult Information We will begin Custom TPN formula via PICC line at 50mL per hour for 12 hours then increase to 85mL per hour thereafter if tolerated. Baseline serum sodium and chloride are high normal so we will reduce the NaCl in TPN to 20mEq in each bag. We will continue to run D5-1/2NS at 65mL per hour to make total fluid equal to 150mL per hour. TPN target rate may be as high as 125mL per hour providing 2,550 kilocalories per day as directed by provider. 100mL of 20% intralipid to be infused over 2 hours every day. Thanks
[2017-08-15] MEDS ORDERED: SODIUM ACETATE IV SCH (14:00)
[2017-08-15] MEDS ORDERED: SODIUM CHLORIDE IV SCH (14:00)
[2017-08-15] MEDS ORDERED: POTASSIUM CHLORIDE IV SCH (14:00)
[2017-08-15] MEDS ORDERED: [UNRECOGNIZED DRUG - OTHER] IV SCH (14:00)
[2017-08-15] MEDS: SUCRALFATE 1gm/10ml ORAL LIQUID PO PRN ×2 (14:40→20:47)
--- NOTE | 2017-08-15 15:45 | Progress Note ---
- Date 08/15/17 Subjective: Iain Borjas is seen in consultation from Dr. Avila for further evaluation of tachycardia and leukopenia. He has also had a mild elevation in temperature at 99.2. He is postop day 4 for a combined open and robotic assisted laparoscopic repair of incisional hernias. Postoperatively, he was doing fairly well until August 10, when he became mildly tachycardic. A CT angio was done to rule out PE. This was negative for PE, but did show atelectasis. On 08/12/17, he became hypoxic at 88% on room air and more tachycardic with rates up to 134. He started having some mild abdominal distention on 08/11/17, but when he woke up on 08/12/17, his abdomen was much more distended. He was made NPO. His last bowel movement was moderate-sized, on 08/10/17. Abdominal x-rays revealed an ileus. He also had reduced urinary output with 200 mL out for dayshift. He has also been somnolent but arouses with verbal. The patient was seen by me today. He continues to complain of abdominal pain and distention. His KUB today showed: Generalized small and large bowel distention with nondifferential air-fluid levels could represent a postoperative ileus or partial small bowel obstruction. Dr. Avila saw patient while I was in there and is not concerned. He explained that the patients bowels have not woke up yet post surgery. The pt continues to have a NGT in place with only small output. He denies fevers or chills. He denies cough or sputum, no SOA. NO CP or palp. He denies nausea at present. He had a PICC placed today and TPN has been initiated. Objective Vital signs: Temperature 96.5 F L 08/15/17 13:39 Pulse Rate 98 08/15/17 13:39 Respiratory Rate 20 08/15/17 14:00 Blood Pressure 138/78 08/15/17 13:39 Pulse Oximetry 92 08/15/17 13:39 Height/Weight/BMI: Height 1.91 m Weight 122.2 kg Body Mass Index 33.0 Comments: Gen: alert and oriented. NAD Skin: warm and dry HEENT: NC/AT PERRL, EOMI, Sclera, lids and conjunctiva wnl, MMM, OP clear Neck: supple. No JVD, Carotids 2+ without bruits. Lungs: clear, No rales, rhonchi, wheezes. CV: regular. No murmur, rub or gallop Abd: Slightly firm, (Dr. Avila reports it is less firm today), incision look good without evidence of infection. TTP diffusely. Very few BS heard. MS: No edema. Good strength and ROM. Neuro: No focal deficit Psy: normal mood and affect Results - Labs CBC & Chem 7: 08/15/17 04:41 08/15/17 04:41 Assessment and Plan Assessment and Plan: Assessment S/P combined open and robotic assisted laparoscopic repair of incisional hernias on 08/08/[address] Avila Hypoxia Leukopenia-normalized today -On Zosyn Bandemia (not POA) -Repeat lab in am Oliguria-resolved -On IVF Ileus-NGT still inplace. Urinary retention - Ellis placed 08/13 Chronic kidney disease - unknown stage but has been at least stage III in the past Hypercoagulable state due to Factor V Leiden deficiency Multiple DVTs - beginning in 1992 Pulmonary embolus - 2010 in [place] when he was off of blood thinners. Chronic anticoagulation for factor V Leiden On Pradaxa at present Bowel perforation ( w/ colon resection and loop ileostomy 04/20/2016 , with takedown of ileostomy 03/08) Hypercholesterolemia-On statin at home, will resume when taking po well. Chronic venous insufficiency Bipolar disorder, Generalized anxiety disorder, Attention deficit disorder, Chronic fatigue syndrome -On Seroquel, Cogentin, Zoloft Chronic pain, Fibromyalgia -On Lyrica, trazodone, Toradol, IV dilaudid prn Plan Kidney function improved today. Continue Ellis for now in event he goes back to OR. Tachycardia Improving. Pulmonary lobar consolidation also seen on CT. Suspect bandemia could be due to possible pneumonia. Continue Zosyn (Day#3) and is on Zithromax for ileus - continue for pulmonary coverage. He has been weaned off of oxygen. Maintaining low 90's off of oxygen. Remains NPO (sips and chips) w/ NG tube. - Physician Narrative Narrative: Date: 08/15/17 Time: 1537 Hospital Course Summary Disclaimer: The visit summary below is not to be considered part of the above Progress Note. Hospital Course: 08/09 POD #1 ASSESSMENT 51-year-old gentleman status post combined open and robotic-assisted laparoscopic repair of incisional hernias. Overall patient doing well. PLAN Will continue with current care. It is my intuition the patient will likely require hospitalization over the next 24-48 hours for pain control and to make sure that his bowel activity resumes without difficulty. Will continue to follow along closely. 08/10 developed tachycardia 120's-130's and crackles per nursing, he has history of PE and hypercoagulable state, CT angio obtained and found to be neg for PE. 08/11 POD #3 ASSESSMENT 51-year-old gentleman status post combined open and robotic assisted laparoscopic repair of incisional hernias. Overall patient doing well with the development of some increasing abdominal distention and tachycardia of uncertain etiology. PLAN The patient did state he had several bowel movements yesterday. Overall his pain is fairly well-controlled with oral narcotics. I am a little concerned to send the patient home today given his onset of tachycardia and his onset of some generalized abdominal discomfort. Will go ahead and keep the patient in the hospital today and continue to monitor closely. Will repeat lab tomorrow and reassess. Patient does have a history for hypercoagulable state and was placed back on his Pradaxa to reinitiate his anticoagulation. 08/12: Hosp consult Tachycardia Check EKG Continue IV fluids. CT angiogram done on 08/10/17 was negative for PE. Hypoxia Portable chest x-ray ordered. Check ABG. DuoNeb 4 times a day. Leukopenia and mild elevation in temperature Chest x-ray and UA Check lactate and procalcitonin Agree with repeating CBC Oliguria Agree with 500 ML fluid bolus as already ordered by Michael Briones APRN. BUN increased mildly to 24, creatinine is stable at 1.1. Follow closely. Monitor intake and output. Somnolence High risk IV narcotic meds in use; minimize as able. ABG ordered. Postop cares and ileus Per attending 08/13/17 Kidney function worsening Cr 1.1-->1.3, BUN 24-->28 despite IVF's running at 150cc's/hr. Previous CTA chest on 08/10. Ellis cath placed due to urinary retention. Decreased UOP. Monitor I&O closely. Tachycardia persists, but is low 100's vs 120's yesterday. BP stable. Dr. Avila has ordered CT abd with contrast - will watch urine OP and hold CT or proceed w/o dye if UOP isn't adequate. Pip/Tazo started by Dr. Avila. Bands increased 9-->23. Continues on 2L O2. Remains NPO (sips and chips) w/ NG tube. 08/14/17 Kidney function improved today. Continue Ellis for now in event he goes back to OR. Tachycardia persists, but is improving. Running low 100s. CT abd reveals high-grade distal partial small bowel obstruction in the anterior abdomen likely due to adhesion. Pulmonary lobar consolidation also seen on CT. Suspect bandemia could be r/t possible pneumonia. Continue Zosyn (Day#2) and is on Zithromax for ileus - continue for pulmonary coverage. He has been weaned off of oxygen. Maintaining low 90's off of oxygen. Remains NPO (sips and chips) w/ NG tube.
[2017-08-15] MEDS: FAT EMULSION 20% 100 ML IV SCH (16:17)
--- NOTE | 2017-08-15 16:29 | Progress Note ---
DATE 08/15/2017 FINDINGS Mr. Borjas was seen earlier today on rounds. He was without new complaints. He was still experiencing a component of some abdominal discomfort. He had been ambulating previously per his report. OBJECTIVE VITALS: Afebrile. Normotensive. Less tachycardic. Last recorded vitals include temperature 96.5, pulse 98, respirations 20, blood pressure 138/70, SaO2 92% on room air. CHEST: Clear to auscultation bilaterally. HEART: Regular rate and rhythm. Normal S1, S2, without gallops, murmurs or clicks. ABDOMEN: Visualization of his incision reveals it to be clean, dry and intact. Palpation of the abdomen still reveals it to be somewhat distended. There was however no evidence for guarding or rebound tenderness. LABORATORY/RADIOGRAPHIC EVALUATION Patient had a CBC today and his hemoglobin remains stable at 11.3. White count is stable at 5.2. BMP was obtained and found to be without marked abnormalities. Radiographically, he did have a KUB and upright. I do believe that one can see some increasing air within his colon. There are still multiple dilated loops of small bowel. Findings and my impression was consistent with that of an ileus. Radiology report says partial small bowel obstruction versus ileus. ASSESSMENT 51-year-old gentleman status post combined open and robotic assisted laparoscopic incisional herniorrhaphies with incorporation of mesh. Patient with the misfortune of developing postoperative ileus. Patient currently stable from a clinical standpoint. PLAN Given his prolonged ileus, it was my recommendation that we go ahead and place a PICC line today to initiate hyperalimentation. Would recommend trying to control his pain more so with Toradol and less narcotics to hopefully facilitate recovery of his GI tract. The patient remains to be without acute surgical abdomen. Will continue to follow closely. GABRIELLA
[2017-08-15] MEDS: HYDROMORPHONE 2 MG/ML INJECTION IVP PRN ×2 (16:35→22:25)
[2017-08-16] MEDS: PIPERACILLIN/TAZOBACTAM 3.375 GM in NS 100 ML IV SCH ×2 (04:53→11:03)
[2017-08-16] MEDS: HYDROMORPHONE 2 MG/ML INJECTION IVP PRN ×5 (04:55→21:50)
[2017-08-16] MEDS: SUCRALFATE 1gm/10ml ORAL LIQUID PO PRN (04:55)
[2017-08-16] MEDS: ALBUTEROL/IPRATROPIUM 2.5mg-0.5mg/3ml NEB AEROSOL SCH ×4 (07:32→19:08)
--- NOTE | 2017-08-16 08:33 | General Surgery Progress Note ---
Subjective Narrative: STates he finally slept fairly well last night. No flatus or stool, but thinks his abd is softer. No nausea. Rashawn chest pain this morning. - Vital Signs Last Vital Signs Temp 97.6 F 08/16/17 04:56 Pulse 95 08/16/17 04:56 Resp 16 08/16/17 07:33 BP 155/85 H 08/16/17 04:56 Pulse Ox 95 08/16/17 07:33 - Laboratory Result Diagrams: 08/16/17 04:28 08/16/17 04:28 - Abnormal Exam Abdominal: hypoactive bowel sounds (abscent), firm (but softer than yesterday), distended, incision(s) (midline with ecchymosis around umbilicus and in the lower 1/2 of the incision, skin edges around the umbilicis with some superficial necrosis. No indiction of seroma at this time, but will want to keep an eye on the umbilical area.) - Normal Exam General: awake, alert, oriented Cardiovascular: regular rate Respiratory: no labored breathing Abdominal: appropriately tender Psychiatric: normal affect Neurological: CN 2-12 grossly intact Assessment and Plan (1) Postoperative incisional hernia Current Visit: Yes Status: Acute (2) Ileus, postoperative Current Visit: Yes Status: Acute (3) Depression Current Visit: Yes Status: Chronic Qualifiers: Depression Type: major depressive disorder Active/Remission status: in remission of unspecified degree (4) History of pulmonary embolism Current Visit: Yes Status: Chronic (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 Requesting shower. Continue current care, may shower, watch the umbilical area for seroma. Hospital Course Summary Disclaimer: The visit summary below is not to be considered part of the above Progress Note. Hospital Course: 08/09 POD #1 ASSESSMENT 51-year-old gentleman status post combined open and robotic-assisted laparoscopic repair of incisional hernias. Overall patient doing well. PLAN Will continue with current care. It is my intuition the patient will likely require hospitalization over the next 24-48 hours for pain control and to make sure that his bowel activity resumes without difficulty. Will continue to follow along closely. 08/10 developed tachycardia 120's-130's and crackles per nursing, he has history of PE and hypercoagulable state, CT angio obtained and found to be neg for PE. 08/11 POD #3 ASSESSMENT 51-year-old gentleman status post combined open and robotic assisted laparoscopic repair of incisional hernias. Overall patient doing well with the development of some increasing abdominal distention and tachycardia of uncertain etiology. PLAN The patient did state he had several bowel movements yesterday. Overall his pain is fairly well-controlled with oral narcotics. I am a little concerned to send the patient home today given his onset of tachycardia and his onset of some generalized abdominal discomfort. Will go ahead and keep the patient in the hospital today and continue to monitor closely. Will repeat lab tomorrow and reassess. Patient does have a history for hypercoagulable state and was placed back on his Pradaxa to reinitiate his anticoagulation. 08/12: Hosp consult Tachycardia Check EKG Continue IV fluids. CT angiogram done on 08/10/17 was negative for PE. Hypoxia Portable chest x-ray ordered. Check ABG. DuoNeb 4 times a day. Leukopenia and mild elevation in temperature Chest x-ray and UA Check lactate and procalcitonin Agree with repeating CBC Oliguria Agree with 500 ML fluid bolus as already ordered by Michael Briones APRN. BUN increased mildly to 24, creatinine is stable at 1.1. Follow closely. Monitor intake and output. Somnolence High risk IV narcotic meds in use; minimize as able. ABG ordered. Postop cares and ileus Per attending 08/13/17 Kidney function worsening Cr 1.1-->1.3, BUN 24-->28 despite IVF's running at 150cc's/hr. Previous CTA chest on 08/10. Ellis cath placed due to urinary retention. Decreased UOP. Monitor I&O closely. Tachycardia persists, but is low 100's vs 120's yesterday. BP stable. Dr. Avila has ordered CT abd with contrast - will watch urine OP and hold CT or proceed w/o dye if UOP isn't adequate. Pip/Tazo started by Dr. Avila. Bands increased 9-->23. Continues on 2L O2. Remains NPO (sips and chips) w/ NG tube. 08/14/17 Kidney function improved today. Continue Ellis for now in event he goes back to OR. Tachycardia persists, but is improving. Running low 100s. CT abd reveals high-grade distal partial small bowel obstruction in the anterior abdomen likely due to adhesion. Pulmonary lobar consolidation also seen on CT. Suspect bandemia could be r/t possible pneumonia. Continue Zosyn (Day#2) and is on Zithromax for ileus - continue for pulmonary coverage. He has been weaned off of oxygen. Maintaining low 90's off of oxygen. Remains NPO (sips and chips) w/ NG tube. 08/15 PLAN Given his prolonged ileus, it was my recommendation that we go ahead and place a PICC line today to initiate hyperalimentation. Would recommend trying to control his pain more so with Toradol and less narcotics to hopefully facilitate recovery of his GI tract. The patient remains to be without acute surgical abdomen. Will continue to follow closely. 08/16 Abd a little softer this am, and he states feeling a little better. Requesting shower. Continue current care, may shower, watch the umbilical area for seroma.
[2017-08-16] MEDS: POLYETHYL GLYCOL 3350 17gm PACKET PO SCH (08:34)
[2017-08-16] MEDS: AZITHROMYCIN IV 250 MG in NS 100 ML IV SCH (08:34)
[2017-08-16] MEDS: PREGABALIN 150 MG CAPSULE PO SCH ×3 (08:35→20:36)
[2017-08-16] MEDS: SERTRALINE 100 MG TABLET PO SCH (08:35)
[2017-08-16] MEDS: BENZTROPINE 1 MG TABLET PO SCH (08:35)
[2017-08-16] MEDS: CARIPRAZINE HCL 6 MG PO SCH (08:36)
[2017-08-16] MEDS: KETOROLAC 30 MG/ML INJECTION IVP PRN ×3 (09:37→20:39)
--- NOTE | 2017-08-16 10:09 | Pharmacy Consult-TPN/PPN ---
Pharmacy Consult-TPN/PPN - Laboratory Information Chemistry Turbidity < 20 (0-20) 08/16/17 04:28 Sodium 146 MEQ/L (134-144) H 08/16/17 04:28 Potassium 3.5 MEQ/L (3.6-5) L 08/16/17 04:28 Chloride 110 MEQ/L (98-107) H 08/16/17 04:28 Carbon Dioxide 26 MEQ/L (22-30) 08/16/17 04:28 Anion Gap 10 meq/L (5-15) 08/16/17 04:28 BUN 5.0 MG/DL (9-20) L 08/16/17 04:28 Creatinine 0.9 mg/dL (0.8-1.5) 08/16/17 04:28 GFR Calculation 89 08/16/17 04:28 BUN/Creatinine Ratio 6 RATIO (6-26) 08/16/17 04:28 Glucose 100 MG/DL (75-110) 08/16/17 04:28 Glucometer 95 mg/dL (65-110) 08/16/17 05:14 Calculated Osmolality 278 MOSM/KG (261-280) 08/16/17 04:28 Calcium 9.0 MG/DL (8.4-10.2) D 08/16/17 04:28 Icterus Index < 2 (0-7) 08/16/17 04:28 Total Creatine Kinase 251 U/L (55-170) H 08/13/17 04:15 Plasma Lactate 0.8 MMOL/L (0.6-2.2) 08/12/17 22:48 Procalcitonin 0.46 NG/ML 08/12/17 17:20 Specimen Hemolysis < 15 (0-25) 08/16/17 04:28 Intake and Output 08/15/17 08/16/17 08/17/17 06:59 06:59 06:59 Intake Total 3257.5 / 3257.5 3063.083 / 3063.083 Output Total 3450 / 3450 3540 / 3540 Balance -192.5 / -192.5 -476.917 / -476.917 Weight 123.1 kg 122.2 kg 121.6 kg Intake: IV 2997.5 / 2997.5 2703.083 / 2703.083 Azithromycin IV 250 mg In Ns 100 / 100 100.000 / 100.000 100 ml @ 100 mls/hr IV Q24H [facility] Rx#:[id number] D5-1/2Ns 1,000 ml @ 65 mls/hr 2497.5 / 2497.5 1497.250 / 1497.250 IV .[id number] [facility] Rx#:[id number] Fat Emulsion 20% 100 ml @ 50 100 / 100 mls/hr IV 1600 [facility] Rx#: [id number] Piperacillin/Tazobactam 3.375 400 / 400 400 / 400 gm In Ns 100 ml @ 200 mls/hr IV Q6H [facility] Rx#:[id number] Sodium Chloride Conc 20 meq 605.833 / 605.833 Sodium Acetate 40 meq Potassium Chloride Inj 40 meq POTASSIUM PHOSPHATE (mEq) 40 meq Magnesium Sulfate Inj 16 meq Calcium Gluconate 9.3 meq Multi -Vit Infusion 10 ml Multi- Trace Elements 1 ml In TPN - Custom Formula 2,000 ml @ 85 mls/hr IV .Q24H [facility] Rx#: [id number] Oral 260 / 260 360 / 360 Output: Urine Amount (Catheter) 2550 / 2550 3300 / 3300 Gastric Drainage 900 / 900 240 / 240 Right Nare 900 / 900 240 / 240 Other: Urine Appearance Clear Clear Urine Color Dark Yellow Yellow Urine Odor Normal Normal Stool Characteristics Mucoid Stool Color Brown Stool Consistency Soft Size of Bowel Movement Small # Bowel Movements 1 - Consult Information We will increase the rate of the TPN to 125mL per hour for meeting caloric requirement. Serum sodium and chloride continues to increase with D5 1/2NS at 65mL per hour and 60mEq of NaCl in TPN running at 85mL per hour overnight. Our plan is to stop D5-1/2NS and remove all sodium chloride from TPN. I expect to see serum sodium and chloride levels to decrease with 08/17 labs. Serum potassium has decreased and this should be corrected with the increase in TPN rate of 125mL per hour. He will be receiving about 5 mEq of potassium per hour with the new formula to begin around noon today. Blood glucose is acceptable with sliding scale insulin and will monitor with increased TPN rate. I ordered magnesium and phosphorous with a.m. labs. Adjustment to add NaCl back into formula with fine tuning of potassium is expected when patient reaches full TPN therapy. Thanks
--- NOTE | 2017-08-16 13:16 | Progress Note ---
- Date 08/16/17 Subjective: Iain Borjas is seen in consultation from Dr. Avila for further evaluation of tachycardia and leukopenia. He also had a mild elevation in temperature at 99.2 . He was postop day 4 for a combined open and robotic assisted laparoscopic repair of incisional hernias. Postoperatively, he was doing fairly well until August 10, when he became mildly tachycardic. A CT angio was done to rule out PE. This was negative for PE, but did show atelectasis. On 08/12/17, he became hypoxic at 88% on room air and more tachycardic with rates up to 134. He started having some mild abdominal distention on 08/11/17, but when he woke up on 08/12/17, his abdomen was much more distended. He was made NPO. His last bowel movement was moderate-sized, on 08/10/17. Abdominal x-rays revealed an ileus. He also had reduced urinary output with 200 mL out for dayshift. He has also been somnolent but arouses with verbal. The patient was seen by me today. He continues to have some abdominal pain and distention. The pt continues to have a NGT in place with 240cc out last 24hours. He denies fevers or chills. He denies cough or sputum, no SOA. NO CP or palp. He denies nausea at present. He is passing gas and has a small "grainy " BM early this am. He had a PICC placed and TPN has been initiated. Objective Vital signs: Temperature 97.9 F 08/16/17 12:00 Pulse Rate 97 08/16/17 12:00 Respiratory Rate 16 08/16/17 12:00 Blood Pressure 147/94 H 08/16/17 12:00 Pulse Oximetry 95 08/16/17 12:00 Height/Weight/BMI: Height 1.91 m Weight 121.6 kg Body Mass Index 33.0 Comments: Gen: alert and oriented. NAD Skin: warm and dry HEENT: NC/AT PERRL, EOMI, Sclera, lids and conjunctiva wnl, MMM, OP clear Neck: supple. No JVD, Carotids 2+ without bruits. Lungs: clear, No rales, rhonchi, wheezes. CV: regular. No murmur, rub or gallop Abd: A little softer, incision look good without evidence of infection. TTP diffusely. Few BS heard. MS: No edema. Good strength and ROM. Neuro: No focal deficit Psy: normal mood and affect Results - Labs CBC & Chem 7: 08/16/17 04:28 08/16/17 04:28 Assessment and Plan Assessment and Plan: Assessment/Plan: S/P combined open and robotic assisted laparoscopic repair of incisional hernias on 08/08/[address] Avila -On Zosyn Post op Ileus -On azithromycin -On TPN -Sm BM today, passing gas -NGT in place with 240cc/24h greenish output -Advance diet per surgery Hypoxia -Resolved, on RA Leukopenia -normalized -On Zosyn Bandemia (not POA) -Resolved Oliguria-resolved -On IVF Urinary retention -Ellis placed 08/13 -Once taking po well will start flomax Chronic kidney disease -unknown stage but has been at least stage III in the past -Normalized BUN and Creatinine Hypercoagulable state due to Factor V Leiden deficiency -Multiple DVTs - beginning in 1992 -Pulmonary embolus - 2010 in [place] when he was off of blood thinners. -Chronic anticoagulation for factor V Leiden -On Pradaxa at present H/O Bowel perforation ( w/ colon resection and loop ileostomy 04/20/2016 , with takedown of ileostomy 03/08) Hypercholesterolemia-On statin at home, will resume when taking po well. Chronic venous insufficiency Bipolar disorder, Generalized anxiety disorder, Attention deficit disorder, Chronic fatigue syndrome -On Seroquel, Cogentin, Zoloft Chronic pain, Fibromyalgia -On Lyrica, trazodone, Toradol, IV dilaudid prn Prophylaxis: SCDs, ppi Dr. Avila is going to clamp NG tube advance into clear liquids. The plan is if he tolerates this than we can probably remove the NG tube in advance diet as tolerated. - Physician Narrative Narrative: Date: 08/16/17 Time: 1313 Hospital Course Summary Disclaimer: The visit summary below is not to be considered part of the above Progress Note. Hospital Course: 08/09 POD #1 ASSESSMENT 51-year-old gentleman status post combined open and robotic-assisted laparoscopic repair of incisional hernias. Overall patient doing well. PLAN Will continue with current care. It is my intuition the patient will likely require hospitalization over the next 24-48 hours for pain control and to make sure that his bowel activity resumes without difficulty. Will continue to follow along closely. 08/10 developed tachycardia 120's-130's and crackles per nursing, he has history of PE and hypercoagulable state, CT angio obtained and found to be neg for PE. 08/11 POD #3 ASSESSMENT 51-year-old gentleman status post combined open and robotic assisted laparoscopic repair of incisional hernias. Overall patient doing well with the development of some increasing abdominal distention and tachycardia of uncertain etiology. PLAN The patient did state he had several bowel movements yesterday. Overall his pain is fairly well-controlled with oral narcotics. I am a little concerned to send the patient home today given his onset of tachycardia and his onset of some generalized abdominal discomfort. Will go ahead and keep the patient in the hospital today and continue to monitor closely. Will repeat lab tomorrow and reassess. Patient does have a history for hypercoagulable state and was placed back on his Pradaxa to reinitiate his anticoagulation. 08/12: Hosp consult Tachycardia Check EKG Continue IV fluids. CT angiogram done on 08/10/17 was negative for PE. Hypoxia Portable chest x-ray ordered. Check ABG. DuoNeb 4 times a day. Leukopenia and mild elevation in temperature Chest x-ray and UA Check lactate and procalcitonin Agree with repeating CBC Oliguria Agree with 500 ML fluid bolus as already ordered by Michael Briones APRN. BUN increased mildly to 24, creatinine is stable at 1.1. Follow closely. Monitor intake and output. Somnolence High risk IV narcotic meds in use; minimize as able. ABG ordered. Postop cares and ileus Per attending 08/13/17 Kidney function worsening Cr 1.1-->1.3, BUN 24-->28 despite IVF's running at 150cc's/hr. Previous CTA chest on 08/10. Ellis cath placed due to urinary retention. Decreased UOP. Monitor I&O closely. Tachycardia persists, but is low 100's vs 120's yesterday. BP stable. Dr. Avila has ordered CT abd with contrast - will watch urine OP and hold CT or proceed w/o dye if UOP isn't adequate. Pip/Tazo started by Dr. Avila. Bands increased 9-->23. Continues on 2L O2. Remains NPO (sips and chips) w/ NG tube. 08/14/17 Kidney function improved today. Continue Ellis for now in event he goes back to OR. Tachycardia persists, but is improving. Running low 100s. CT abd reveals high-grade distal partial small bowel obstruction in the anterior abdomen likely due to adhesion. Pulmonary lobar consolidation also seen on CT. Suspect bandemia could be r/t possible pneumonia. Continue Zosyn (Day#2) and is on Zithromax for ileus - continue for pulmonary coverage. He has been weaned off of oxygen. Maintaining low 90's off of oxygen. Remains NPO (sips and chips) w/ NG tube. 08/15 PLAN Given his prolonged ileus, it was my recommendation that we go ahead and place a PICC line today to initiate hyperalimentation. Would recommend trying to control his pain more so with Toradol and less narcotics to hopefully facilitate recovery of his GI tract. The patient remains to be without acute surgical abdomen. Will continue to follow closely. 08/16 Abd a little softer this am, and he states feeling a little better. Requesting shower. Continue current care, may shower, watch the umbilical area for seroma.
--- NOTE | 2017-08-16 13:33 | Progress Note ---
DATE 08/16/2017 FINDINGS Mr. Borjas states that he was feeling better today. He states that he did have a small bowel movement earlier today. OBJECTIVE VITALS: Afebrile. Normotensive. Please refer to EMR. ABDOMEN: Soft. Minimal incisional tenderness. No evidence for guarding or rebound. The abdomen appeared softer today upon palpation. LABORATORY/RADIOGRAPHIC EVALUATION The patient had CBC obtained today that was unremarkable. BMP also obtained and found to be essentially within normal limits. Sodium and chloride slightly elevated at 146 and 110, respectively. ASSESSMENT 51-year-old gentleman status post combined open and robotic assisted laparoscopic incisional herniorrhaphies with incorporation of mesh. Patient with development of postoperative ileus. Patient with possible pneumonia upon radiographic evaluation. Patient improving from clinical standpoint. PLAN Given the fact the patient's abdomen is less distended today and the fact that he has had a bowel movement, will go ahead and clamp his NG and begin him on some clear liquids. If he tolerates the NG being clamped and clear liquids, may consider discontinuing NG tomorrow and beginning on full liquids. Dr. Wei will be covering for me over the course of the weekend. Additionally, once his bowel activity has resumed, can discontinue azithromycin which has been used as a promotility agent. I will go ahead and discontinue Zosyn at this time for I do not feel that we are dealing with intraabdominal process. Overall I am pleased with the patient's progress. GABRIELLA
[2017-08-16] MEDS: POTASSIUM CHLORIDE PREMIX 10 MEQ/100 ML BAG IV SCH ×4 (14:02→17:58)
[2017-08-16] MEDS: FAT EMULSION 20% 100 ML IV SCH (16:47)
[2017-08-16] MEDS: POTASSIUM ACETATE IV SCH (17:57)
[2017-08-16] MEDS: POTASSIUM CHLORIDE IV SCH (17:57)
[2017-08-16] MEDS: [UNRECOGNIZED DRUG - OTHER] IV SCH (17:57)
[2017-08-17] MEDS: KETOROLAC 30 MG/ML INJECTION IVP PRN ×2 (03:00→14:55)
[2017-08-17] MEDS: SUCRALFATE 1gm/10ml ORAL LIQUID PO PRN (04:21)
[2017-08-17] MEDS: HYDROMORPHONE 2 MG/ML INJECTION IVP PRN ×4 (04:30→20:53)
[2017-08-17] MEDS: POTASSIUM CHLORIDE IV SCH ×2 (04:36→22:19)
[2017-08-17] MEDS: POTASSIUM ACETATE IV SCH ×2 (04:36→22:19)
[2017-08-17] MEDS: [UNRECOGNIZED DRUG - OTHER] IV SCH ×2 (04:36→22:19)
[2017-08-17] MEDS: ALBUTEROL/IPRATROPIUM 2.5mg-0.5mg/3ml NEB AEROSOL SCH ×4 (07:45→19:51)
--- NOTE | 2017-08-17 08:48 | Pharmacy Consult-TPN/PPN ---
Pharmacy Consult-TPN/PPN - Laboratory Information Chemistry Turbidity < 20 (0-20) 08/17/17 05:00 Sodium 147 MEQ/L (134-144) H 08/17/17 05:00 Potassium 4.2 MEQ/L (3.6-5) D 08/17/17 05:00 Chloride 110 MEQ/L (98-107) H 08/17/17 05:00 Carbon Dioxide 24 MEQ/L (22-30) 08/17/17 05:00 Anion Gap 13 meq/L (5-15) 08/17/17 05:00 BUN 10.0 MG/DL (9-20) D 08/17/17 05:00 Creatinine 0.8 mg/dL (0.8-1.5) 08/17/17 05:00 GFR Calculation 102 08/17/17 05:00 BUN/Creatinine Ratio 13 RATIO (6-26) 08/17/17 05:00 Glucose 101 MG/DL (75-110) 08/17/17 05:00 Glucometer 149 mg/dL (65-110) 08/17/17 00:08 Calculated Osmolality 281 MOSM/KG (261-280) H 08/17/17 05:00 Calcium 9.6 MG/DL (8.4-10.2) 08/17/17 05:00 Phosphorus 3.4 MG/DL (2.5-4.5) 08/17/17 05:00 Magnesium 2.4 MG/DL (1.6-2.3) H 08/17/17 05:00 Icterus Index < 2 (0-7) 08/17/17 05:00 Total Creatine Kinase 251 U/L (55-170) H 08/13/17 04:15 Plasma Lactate 0.8 MMOL/L (0.6-2.2) 08/12/17 22:48 Procalcitonin 0.46 NG/ML 08/12/17 17:20 Specimen Hemolysis < 15 (0-25) 08/17/17 05:00 Intake and Output 08/16/17 08/17/17 08/18/17 06:59 06:59 06:59 Intake Total 3063.083 / 3063.083 2593.5079 / 2593.5079 Output Total 3540 / 3540 4250 / 4250 Balance -476.917 / -476.917 -1656.4921 / -1656.4921 Weight 122.2 kg 121.6 kg 72.9 kg Intake: IV 2703.083 / 2703.083 2593.5079 / 2593.5079 Azithromycin IV 250 mg In Ns 100.000 / 100.000 100 / 100 100 ml @ 100 mls/hr IV Q24H [facility] Rx#:[id number] D5-1/2Ns 1,000 ml @ 65 mls/hr 1497.250 / 1497.250 206.917 / 206.917 IV .[id number] [facility] Rx#:[id number] Fat Emulsion 20% 100 ml @ 50 100 / 100 95 / 95 mls/hr IV 1600 [facility] Rx#: [id number] Piperacillin/Tazobactam 3.375 400 / 400 100 / 100 gm In Ns 100 ml @ 200 mls/hr IV Q6H [facility] Rx#:[id number] Potassium Acetate Inj 20 meq 208.333 / 208.333 Potassium Chloride Inj 20 meq POTASSIUM PHOSPHATE (mEq) 40 meq Magnesium Sulfate Inj 16 meq Calcium Gluconate 9.3 meq Multi-Vit Infusion 10 ml Multi -Trace Elements 1 ml In TPN - Custom Formula 2,000 ml @ 125 mls/hr IV .[id number] [facility] Rx#: [id number] Potassium Chloride Premix 10 400 / 400 meq In 100 ml @ 100 mls/hr IV Q1H [facility] Rx#:[id number] Sodium Chloride Conc 20 meq 605.833 / 761.063 2962.2579 / 1483.2579 Sodium Acetate 40 meq Potassium Chloride Inj 40 meq POTASSIUM PHOSPHATE (mEq) 40 meq Magnesium Sulfate Inj 16 meq Calcium Gluconate 9.3 meq Multi -Vit Infusion 10 ml Multi- Trace Elements 1 ml In TPN - Custom Formula 2,000 ml @ 85 mls/hr IV .Q24H [facility] Rx#: [id number] Oral 360 / 360 Output: Urine Amount (Catheter) 3300 / 3300 3300 / 3300 Gastric Drainage 240 / 240 950 / 950 Right Nare 240 / 240 950 / 950 Other: Urine Appearance Clear Clear Urine Color Yellow Yellow Urine Odor Normal Stool Color Brown Stool Consistency Soft Size of Bowel Movement Moderate # Bowel Movements 1 - Consult Information Day 3 of hyperalimentation. Will reduce magnesium slightly in next TPN formula. Otherwise same formula at 125 mls/ hr. Will continue to monitor. Thank you.
[2017-08-17] MEDS: SERTRALINE 100 MG TABLET PO SCH (09:44)
[2017-08-17] MEDS: PREGABALIN 150 MG CAPSULE PO SCH ×3 (09:45→20:58)
[2017-08-17] MEDS: BENZTROPINE 1 MG TABLET PO SCH (09:45)
[2017-08-17] MEDS: AZITHROMYCIN IV 250 MG in NS 100 ML IV SCH (09:45)
[2017-08-17] MEDS: PANTOPRAZOLE 40 MG INJECTION IVP SCH (09:45)
[2017-08-17] MEDS: CARIPRAZINE HCL 6 MG PO SCH (09:46)
[2017-08-17] MEDS: POLYETHYL GLYCOL 3350 17gm PACKET PO SCH ×2 (09:46→10:13)
[2017-08-17] MEDS: QUETIAPINE 50 MG TABLET PO PRN (10:12)
--- NOTE | 2017-08-17 11:28 | Progress Note ---
- Date 08/17/17 Subjective: Mr. Borjas is a 51-year-old male who presented on 07/17/[address] Avila's office regarding his incisional hernia. He had a stercoral perforated in Mar 2016. He was sent to [place] and underwent a colon resection with creation of a loop ileostomy. In February 2017 he underwent takedown of his loop ileostomy. He states that surgery went very well. He continued however to have pain associated with his incisional hernia along the prior midline incision. His discomfort is worse with activity and relieved rest. After that office visit the plan was for the patient undergo robotic assisted laparoscopic herniorrhaphy with incorporation of mesh. He was made aware of the possibility that would turn to an open surgery as well. Patient is on chronic oral anticoagulation for history of DVT's and his factor 5 Leiden deficiency. He was admitted for a Lovenox bridge as he comes off his Pradaxa. We were asked to see the patient in consult from Dr. Avila due to the patient's postoperative tachycardia, hypoxia and leukopenia as well as mild low- grade temps. He was postop day 4 for a combined open and robotic assisted laparoscopic repair of incisional hernias. Postoperatively, he was doing fairly well until August 10, when he became mildly tachycardic. A CT angio was done to rule out PE. This was negative for PE, but did show atelectasis. On 08/12/17, he became hypoxic at 88% on room air and more tachycardic with rates up to 134. He started having some mild abdominal distention on 08/11/17, but when he woke up on 08/12/17, his abdomen was much more distended. He was made NPO. His last bowel movement was moderate-sized, on 08/10/17. Abdominal x-rays revealed an ileus. He also had reduced urinary output with 200 mL out for dayshift. He has also been somnolent but arouses with verbal. The patient was seen by me today. He reports a large bowel movement this morning. He continues however to have considerable output from his NG tube. He denies fevers or chills. He denies cough or sputum, no SOA. NO CP or palp. He denies nausea at present. He is passing gas. He continues to receive TPN for nutrition. He is having good urine output. Objective Vital signs: Temperature 97.3 F 08/17/17 03:08 Pulse Rate 102 H 08/17/17 07:34 Respiratory Rate 16 08/17/17 07:45 Blood Pressure 149/95 H 08/17/17 07:27 Pulse Oximetry 94 08/17/17 07:45 Height/Weight/BMI: Height 1.91 m Weight 72.9 kg Body Mass Index 33.0 Comments: Gen: alert and oriented. NAD Skin: warm and dry HEENT: NC/AT PERRL, EOMI, Sclera, lids and conjunctiva wnl, MMM, OP clear Neck: supple. No JVD, Carotids 2+ without bruits. Lungs: clear, No rales, rhonchi, wheezes. CV: regular. No murmur, rub or gallop Abd: A little softer but continues to be a little firm and distended. The incisions look good without evidence of infection. Still quite TTP diffusely. + BS MS: No edema. Good strength and ROM. Neuro: No focal deficit Psy: normal mood and affect Results - Labs CBC & Chem 7: 08/17/17 05:00 08/17/17 05:00 Assessment and Plan Assessment and Plan: Assessment/Plan: S/P combined open and robotic assisted laparoscopic repair of incisional hernias on 08/08/[address] Avila -On Zosyn Post op Ileus -On azithromycin for motility -On TPN -Lg BM today, passing gas -NGT in place with 650cc outpt documented for today, greenish fluid noted in can -Advance diet per surgery Hypoxia -Resolved, on RA Leukopenia -WBC up a bit today, follow -On Zosyn Bandemia (not POA) -Resolved Oliguria -resolved Urinary retention -Ellis placed 08/13 -Once taking po well will start flomax and start bladder training Chronic kidney disease -unknown stage but has been at least stage III in the past -Normalized BUN and Creatinine Hypercoagulable state due to Factor V Leiden deficiency -Multiple DVTs - beginning in 1992 -Pulmonary embolus - 2010 in [place] when he was off of blood thinners. -Chronic anticoagulation for factor V Leiden -On Pradaxa at present H/O Bowel perforation ( w/ colon resection and loop ileostomy 04/20/2016 , with takedown of ileostomy 03/08) Hypercholesterolemia-On statin at home, will resume when taking po well. Chronic venous insufficiency Bipolar disorder, Generalized anxiety disorder, Attention deficit disorder, Chronic fatigue syndrome -On Seroquel, Cogentin, Zoloft Chronic pain, Fibromyalgia -On Lyrica, trazodone, Toradol, IV dilaudid prn Prophylaxis: SCDs, ppi Dr. Wei on for Dr. Avila today. Will await his recommendations regarding diet and NGT - Physician Narrative Narrative: Date: 08/17/17 Time: 1116 Hospital Course Summary Disclaimer: The visit summary below is not to be considered part of the above Progress Note. Hospital Course: 08/09 POD #1 ASSESSMENT 51-year-old gentleman status post combined open and robotic-assisted laparoscopic repair of incisional hernias. Overall patient doing well. PLAN Will continue with current care. It is my intuition the patient will likely require hospitalization over the next 24-48 hours for pain control and to make sure that his bowel activity resumes without difficulty. Will continue to follow along closely. 08/10 developed tachycardia 120's-130's and crackles per nursing, he has history of PE and hypercoagulable state, CT angio obtained and found to be neg for PE. 08/11 POD #3 ASSESSMENT 51-year-old gentleman status post combined open and robotic assisted laparoscopic repair of incisional hernias. Overall patient doing well with the development of some increasing abdominal distention and tachycardia of uncertain etiology. PLAN The patient did state he had several bowel movements yesterday. Overall his pain is fairly well-controlled with oral narcotics. I am a little concerned to send the patient home today given his onset of tachycardia and his onset of some generalized abdominal discomfort. Will go ahead and keep the patient in the hospital today and continue to monitor closely. Will repeat lab tomorrow and reassess. Patient does have a history for hypercoagulable state and was placed back on his Pradaxa to reinitiate his anticoagulation. 08/12: Hosp consult Tachycardia Check EKG Continue IV fluids. CT angiogram done on 08/10/17 was negative for PE. Hypoxia Portable chest x-ray ordered. Check ABG. DuoNeb 4 times a day. Leukopenia and mild elevation in temperature Chest x-ray and UA Check lactate and procalcitonin Agree with repeating CBC Oliguria Agree with 500 ML fluid bolus as already ordered by Michael Briones APRN. BUN increased mildly to 24, creatinine is stable at 1.1. Follow closely. Monitor intake and output. Somnolence High risk IV narcotic meds in use; minimize as able. ABG ordered. Postop cares and ileus Per attending 08/13/17 Kidney function worsening Cr 1.1-->1.3, BUN 24-->28 despite IVF's running at 150cc's/hr. Previous CTA chest on 08/10. Ellis cath placed due to urinary retention. Decreased UOP. Monitor I&O closely. Tachycardia persists, but is low 100's vs 120's yesterday. BP stable. Dr. Avila has ordered CT abd with contrast - will watch urine OP and hold CT or proceed w/o dye if UOP isn't adequate. Pip/Tazo started by Dr. Avila. Bands increased 9-->23. Continues on 2L O2. Remains NPO (sips and chips) w/ NG tube. 08/14/17 Kidney function improved today. Continue Ellis for now in event he goes back to OR. Tachycardia persists, but is improving. Running low 100s. CT abd reveals high-grade distal partial small bowel obstruction in the anterior abdomen likely due to adhesion. Pulmonary lobar consolidation also seen on CT. Suspect bandemia could be r/t possible pneumonia. Continue Zosyn (Day#2) and is on Zithromax for ileus - continue for pulmonary coverage. He has been weaned off of oxygen. Maintaining low 90's off of oxygen. Remains NPO (sips and chips) w/ NG tube. 08/15 PLAN Given his prolonged ileus, it was my recommendation that we go ahead and place a PICC line today to initiate hyperalimentation. Would recommend trying to control his pain more so with Toradol and less narcotics to hopefully facilitate recovery of his GI tract. The patient remains to be without acute surgical abdomen. Will continue to follow closely. 08/16 Abd a little softer this am, and he states feeling a little better. Requesting shower. Continue current care, may shower, watch the umbilical area for seroma.
[2017-08-17] MEDS: FAT EMULSION 20% 100 ML IV SCH (16:03)
--- NOTE | 2017-08-17 16:18 | Progress Note ---
DATE 08/17/2017 HISTORY OF PRESENT ILLNESS The patient did have a bowel movement yesterday. He had a much larger bowel movement today. The patient does have a nasogastric tube in place which is connected to intermittent suction. The patient does have clear liquids ordered which he drinks while the nasogastric tube is off suction. The patient states that he had difficulty with his clear liquid diet yesterday evening. He felt full and bloated after just a small amount of Jell-O and only ate about a third of his JELL-O because of that. He is doing a little better this morning. The nurse for the patient reports he is still not doing real well on his clear liquid diet today and has not had much intake of the clear liquids so far today. The patient is receiving TPN for nutritional support. PHYSICAL EXAMINATION VITAL SIGNS: Pulse is 110. Blood pressure is 149/84. Oxygen saturation is 94 % on room air. Respiratory rate is 16. ABDOMEN: The abdominal incision looks good. LABORATORY DATA White blood cell count is 11,600 with no bands. Hemoglobin is 12.5. Hematocrit is 37.6. Serum sodium is 147. Serum potassium is 4.2. Serum chloride is 110. Serum creatinine is 0.8. INTAKE AND OUTPUT Nasogastric tube output was 650 ml last shift. IMPRESSION 1. Doing well overall following combined open and robotic-assisted laparoscopic repair of incisional hernias on 08/08/2017. 2. Postoperative ileus. PLAN 1. Continue same nasogastric tube/clear liquid diet regimen for another 24 hours. Hold off removing the nasogastric tube yet at this time until the patient is tolerating his oral diet a little better. 2. Continue TPN. 3. Continue ambulation of the patient. [facility]
[2017-08-17] MEDS: INSULIN REGULAR, HUMAN 100 UNIT/ML INJECTION SQ PRN ×2 (18:35→23:38)
[2017-08-17] MEDS: TAMSULOSIN 0.4 MG CAPSULE PO SCH (20:49)
[2017-08-17] MEDS: SALINE FLUSH 10ml SYRINGE IV PRN ×2 (20:59→21:02)
[2017-08-18] MEDS: KETOROLAC 30 MG/ML INJECTION IVP PRN (02:56)
[2017-08-18] MEDS: POTASSIUM CHLORIDE IV SCH (04:52)
[2017-08-18] MEDS: [UNRECOGNIZED DRUG - OTHER] IV SCH (04:52)
[2017-08-18] MEDS: POTASSIUM ACETATE IV SCH (04:52)
[2017-08-18] MEDS ORDERED: IBUPROFEN 200 MG TABLET PO PRN (10:46)
--- NOTE | 2017-08-18 10:57 | Progress Note ---
- Date 08/18/17 Subjective: Mr. Borjas is a 51-year-old male who presented on 07/17/[address] Avila's office regarding his incisional hernia. He had a stercoral perforated in Mar 2016. He was sent to [place] and underwent a colon resection with creation of a loop ileostomy. In February 2017 he underwent takedown of his loop ileostomy. He states that surgery went very well. He continued however to have pain associated with his incisional hernia along the prior midline incision. His discomfort is worse with activity and relieved rest. After that office visit the plan was for the patient undergo robotic assisted laparoscopic herniorrhaphy with incorporation of mesh. He was made aware of the possibility that would turn to an open surgery as well. Patient is on chronic oral anticoagulation for history of DVT's and his factor 5 Leiden deficiency. He was admitted for a Lovenox bridge as he comes off his Pradaxa. We were asked to see the patient in consult from Dr. Avila due to the patient's postoperative tachycardia, hypoxia and leukopenia as well as mild low- grade temps. He was postop day 4 for a combined open and robotic assisted laparoscopic repair of incisional hernias. Postoperatively, he was doing fairly well until August 10, when he became mildly tachycardic. A CT angio was done to rule out PE. This was negative for PE, but did show atelectasis. On 08/12/17, he became hypoxic at 88% on room air and more tachycardic with rates up to 134. He started having some mild abdominal distention on 08/11/17, but when he woke up on 08/12/17, his abdomen was much more distended. He was made NPO. His last bowel movement was moderate-sized, on 08/10/17. Abdominal x-rays revealed an ileus. He also had reduced urinary output with 200 mL out for dayshift. He has also been somnolent but arouses with verbal. The patient was seen by me today. He is doing better today. He is still distended and TTP in the abdomen. He denies nausea. He would like more to eat. 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 He had a large BM yesterday and her reports padding flatus. He did pull the NGT out and Dr. Wei agreed not to replace it. He denies fevers or chills. He denies cough or sputum, no SOA. NO CP or palp. He continues to receive TPN for nutrition. He is having good urine output. Objective Vital signs: Temperature 96.2 F L 08/18/17 07:00 Pulse Rate 98 08/18/17 07:00 Respiratory Rate 12 08/18/17 07:00 Blood Pressure 124/79 08/18/17 07:00 Pulse Oximetry 94 08/18/17 07:00 Height/Weight/BMI: Height 1.91 m Weight 119.7 kg Body Mass Index 33.0 Comments: Gen: alert and oriented. NAD Skin: warm and dry HEENT: NC/AT PERRL, EOMI, Sclera, lids and conjunctiva wnl, MMM, OP clear Neck: supple. No JVD, Carotids 2+ without bruits. Lungs: clear, No rales, rhonchi, wheezes. CV: regular. No murmur, rub or gallop Abd: A little softer but continues to be a little firm and distended. The incisions look good without evidence of infection. Still quite TTP diffusely. + BS MS: No edema. Good strength and ROM. Neuro: No focal deficit Psy: normal mood and affect Results - Labs CBC & Chem 7: 08/18/17 04:43 08/18/17 04:43 Assessment and Plan Assessment and Plan: Assessment/Plan: S/P combined open and robotic assisted laparoscopic repair of incisional hernias on 08/08/[address] Avila -On Zosyn Post op Ileus -On azithromycin for motility -On TPN -Lg BM yesterday, passing gas -Advance diet per surgery Hypoxia -Resolved, on RA Leukopenia -WBC normal today -On Zosyn Bandemia (not POA) -Resolved Oliguria -resolved Urinary retention -Ellis placed 08/13 -start bladder training Chronic kidney disease -unknown stage but has been at least stage III in the past -Normalized BUN and Creatinine Hypercoagulable state due to Factor V Leiden deficiency -Multiple DVTs - beginning in 1992 -Pulmonary embolus - 2010 in [place] when he was off of blood thinners. -Chronic anticoagulation for factor V Leiden -On Pradaxa at present Mildly elevated LFT -Repeat in am H/O Bowel perforation ( w/ colon resection and loop ileostomy 04/20/2016 , with takedown of ileostomy 03/08) Hypercholesterolemia -On statin at home, will resume when taking po well and LFTs normalized. Chronic venous insufficiency Bipolar disorder, Generalized anxiety disorder, Attention deficit disorder, Chronic fatigue syndrome -On Seroquel, Cogentin, Zoloft Chronic pain, Fibromyalgia -On Lyrica, trazodone, Toradol, IV Dilaudid prn Prophylaxis: -SCDs, ppi Dr. Wei on for Dr. Avila today. Will await his recommendations regarding diet. Pt instructed to walk several times a day - Physician Narrative Narrative: Date: 08/18/17 Time: 1053 Hospital Course Summary Disclaimer: The visit summary below is not to be considered part of the above Progress Note. Hospital Course: 08/09 POD #1 ASSESSMENT 51-year-old gentleman status post combined open and robotic-assisted laparoscopic repair of incisional hernias. Overall patient doing well. PLAN Will continue with current care. It is my intuition the patient will likely require hospitalization over the next 24-48 hours for pain control and to make sure that his bowel activity resumes without difficulty. Will continue to follow along closely. 08/10 developed tachycardia 120's-130's and crackles per nursing, he has history of PE and hypercoagulable state, CT angio obtained and found to be neg for PE. 08/11 POD #3 ASSESSMENT 51-year-old gentleman status post combined open and robotic assisted laparoscopic repair of incisional hernias. Overall patient doing well with the development of some increasing abdominal distention and tachycardia of uncertain etiology. PLAN The patient did state he had several bowel movements yesterday. Overall his pain is fairly well-controlled with oral narcotics. I am a little concerned to send the patient home today given his onset of tachycardia and his onset of some generalized abdominal discomfort. Will go ahead and keep the patient in the hospital today and continue to monitor closely. Will repeat lab tomorrow and reassess. Patient does have a history for hypercoagulable state and was placed back on his Pradaxa to reinitiate his anticoagulation. 08/12: Hosp consult Tachycardia Check EKG Continue IV fluids. CT angiogram done on 08/10/17 was negative for PE. Hypoxia Portable chest x-ray ordered. Check ABG. DuoNeb 4 times a day. Leukopenia and mild elevation in temperature Chest x-ray and UA Check lactate and procalcitonin Agree with repeating CBC Oliguria Agree with 500 ML fluid bolus as already ordered by Michael Briones APRN. BUN increased mildly to 24, creatinine is stable at 1.1. Follow closely. Monitor intake and output. Somnolence High risk IV narcotic meds in use; minimize as able. ABG ordered. Postop cares and ileus Per attending 08/13/17 Kidney function worsening Cr 1.1-->1.3, BUN 24-->28 despite IVF's running at 150cc's/hr. Previous CTA chest on 08/10. Ellis cath placed due to urinary retention. Decreased UOP. Monitor I&O closely. Tachycardia persists, but is low 100's vs 120's yesterday. BP stable. Dr. Avila has ordered CT abd with contrast - will watch urine OP and hold CT or proceed w/o dye if UOP isn't adequate. Pip/Tazo started by Dr. Avila. Bands increased 9-->23. Continues on 2L O2. Remains NPO (sips and chips) w/ NG tube. 08/14/17 Kidney function improved today. Continue Ellis for now in event he goes back to OR. Tachycardia persists, but is improving. Running low 100s. CT abd reveals high-grade distal partial small bowel obstruction in the anterior abdomen likely due to adhesion. Pulmonary lobar consolidation also seen on CT. Suspect bandemia could be r/t possible pneumonia. Continue Zosyn (Day#2) and is on Zithromax for ileus - continue for pulmonary coverage. He has been weaned off of oxygen. Maintaining low 90's off of oxygen. Remains NPO (sips and chips) w/ NG tube. 08/15 PLAN Given his prolonged ileus, it was my recommendation that we go ahead and place a PICC line today to initiate hyperalimentation. Would recommend trying to control his pain more so with Toradol and less narcotics to hopefully facilitate recovery of his GI tract. The patient remains to be without acute surgical abdomen. Will continue to follow closely. 08/16 Abd a little softer this am, and he states feeling a little better. Requesting shower. Continue current care, may shower, watch the umbilical area for seroma.
[2017-08-18] MEDS: ALBUTEROL/IPRATROPIUM 2.5mg-0.5mg/3ml NEB AEROSOL SCH ×2 (11:00→19:40)
--- NOTE | 2017-08-18 11:27 | Pharmacy Consult-TPN/PPN ---
Pharmacy Consult-TPN/PPN - Laboratory Information Chemistry Turbidity < 20 (0-20) 08/18/17 04:43 Sodium 145 MEQ/L (134-144) H 08/18/17 04:43 Potassium 4.3 MEQ/L (3.6-5) 08/18/17 04:43 Chloride 111 MEQ/L (98-107) H 08/18/17 04:43 Carbon Dioxide 24 MEQ/L (22-30) 08/18/17 04:43 Anion Gap 10 meq/L (5-15) 08/18/17 04:43 BUN 13.0 MG/DL (9-20) 08/18/17 04:43 Creatinine 0.9 mg/dL (0.8-1.5) 08/18/17 04:43 GFR Calculation 89 08/18/17 04:43 BUN/Creatinine Ratio 14 RATIO (6-26) 08/18/17 04:43 Glucose 115 MG/DL (75-110) H 08/18/17 04:43 Glucometer 156 mg/dL (65-110) 08/17/17 23:33 Calculated Osmolality 280 MOSM/KG (261-280) 08/18/17 04:43 Calcium 9.7 MG/DL (8.4-10.2) 08/18/17 04:43 Phosphorus 3.4 MG/DL (2.5-4.5) 08/17/17 05:00 Magnesium 2.4 MG/DL (1.6-2.3) H 08/17/17 05:00 Total Bilirubin 0.30 MG/DL (0.20-1.30) 08/18/17 04:43 Conjugated Bilirubin 0.00 mg/dL (0.00-0.30) 08/18/17 04:43 Unconjugated Bilirubin 0.10 mg/dL (0.00-1.1) 08/18/17 04:43 Icterus Index < 2 (0-7) 08/18/17 04:43 AST 62 U/L (17-59) H 08/18/17 04:43 ALT 57 U/L (1-50) H 08/18/17 04:43 Alkaline Phosphatase 67 U/L (38-126) 08/18/17 04:43 Total Creatine Kinase 251 U/L (55-170) H 08/13/17 04:15 Total Protein 7.2 g/dL (6.3-8.2) 08/18/17 04:43 Albumin 4.1 g/dL (3.5-5.0) 08/18/17 04:43 Globulin 3.1 G/DL (2.4-3.6) 08/18/17 04:43 Albumin/Globulin Ratio 1.3 RATIO (1.1-2.2) 08/18/17 04:43 Plasma Lactate 0.8 MMOL/L (0.6-2.2) 08/12/17 22:48 Procalcitonin 0.46 NG/ML 08/12/17 17:20 Specimen Hemolysis < 15 (0-25) 08/18/17 04:43 Intake and Output 08/17/17 08/18/17 08/19/17 06:59 06:59 06:59 Intake Total 2593.5079 / 2593.5079 3445.7579 / 3445.7579 Output Total 4250 / 4250 3350 / 3350 Balance -1656.4921 / -1656.4921 95.7579 / 95.7579 Weight 121.6 kg 72.9 kg 119.7 kg Intake: IV 2593.5079 / 2593.5079 2055.7579 / 2055.7579 Azithromycin IV 250 mg In Ns 100 / 100 100 / 100 100 ml @ 100 mls/hr IV Q24H [facility] Rx#:[id number] D5-1/2Ns 1,000 ml @ 65 mls/hr 206.917 / 206.917 IV .[id number] [facility] Rx#:[id number] Fat Emulsion 20% 100 ml @ 50 95 / 95 100 / 100 mls/hr IV 1600 [facility] Rx#: [id number] Piperacillin/Tazobactam 3.375 100 / 100 gm In Ns 100 ml @ 200 mls/hr IV Q6H [facility] Rx#:[id number] Potassium Acetate Inj 20 meq 208.333 / 946.630 2323.7579 / 1855.7579 Potassium Chloride Inj 20 meq POTASSIUM PHOSPHATE (mEq) 40 meq Magnesium Sulfate Inj 16 meq Calcium Gluconate 9.3 meq Multi-Vit Infusion 10 ml Multi -Trace Elements 1 ml In TPN - Custom Formula 2,000 ml @ 125 mls/hr IV .[id number] [facility] Rx#: [id number] Potassium Chloride Premix 10 400 / 400 meq In 100 ml @ 100 mls/hr IV Q1H [facility] Rx#:[id number] Sodium Chloride Conc 20 meq 1483.2579 / 1483.2579 Sodium Acetate 40 meq Potassium Chloride Inj 40 meq POTASSIUM PHOSPHATE (mEq) 40 meq Magnesium Sulfate Inj 16 meq Calcium Gluconate 9.3 meq Multi -Vit Infusion 10 ml Multi- Trace Elements 1 ml In TPN - Custom Formula 2,000 ml @ 85 mls/hr IV .Q24H [facility] Rx#: [id number] Oral 1390 / 1390 Output: Urine Amount (Catheter) 3300 / 3300 2875 / 2875 Gastric Drainage 950 / 950 475 / 475 Right Nare 950 / 950 475 / 475 Other: Urine Appearance Clear Clear Urine Color Yellow Yellow Urine Odor Normal Stool Color Brown Stool Consistency Soft Size of Bowel Movement Moderate Large # Bowel Movements 1 1 - Consult Information Noted decrease in TPN rate to 75mls/hr. Magnesium will be slightly reduced in bag hanging early tomorrow morning. Will follow electrolytes and adjust formula accordingly. Thank you.
[2017-08-18] MEDS ORDERED: PANTOPRAZOLE 40 MG TABLET PO SCH (12:00)
[2017-08-18] MEDS ORDERED: AZITHROMYCIN 250 MG TABLET PO SCH (12:00)
[2017-08-18] MEDS: AZITHROMYCIN IV 250 MG in NS 100 ML IV SCH (12:05)
[2017-08-18] MEDS: PANTOPRAZOLE 40 MG INJECTION IVP SCH (12:05)
[2017-08-18] MEDS: SERTRALINE 100 MG TABLET PO SCH (12:17)
[2017-08-18] MEDS: CARIPRAZINE HCL 6 MG PO SCH (12:17)
[2017-08-18] MEDS: BENZTROPINE 1 MG TABLET PO SCH (12:18)
[2017-08-18] MEDS: POLYETHYL GLYCOL 3350 17gm PACKET PO SCH ×2 (12:19→12:24)
[2017-08-18] MEDS: SUCRALFATE 1gm/10ml ORAL LIQUID PO PRN (12:23)
[2017-08-18] MEDS: PREGABALIN 150 MG CAPSULE PO SCH ×3 (12:29→20:26)
[2017-08-18] MEDS: D5-1/2NS 1,000 ML IV SCH (13:12)
[2017-08-18] MEDS ORDERED: D5-1/2NS 1,000 ML IV SCH (13:30)
[2017-08-18] MEDS ORDERED: CALCIUM CARBONATE Chewable 500mg TABLET PO PRN (14:43)
[2017-08-18] MEDS: SALINE FLUSH 10ml SYRINGE IV PRN (14:54)
[2017-08-18] MEDS ORDERED: ALTEPLASE (Cathflo*) 2mg INJECTION IV ONE (15:06)
[2017-08-18] MEDS ORDERED: GAVISCON PO PRN (15:33)
[2017-08-18] MEDS ORDERED: TRAZODONE 100 MG TABLET PO PRN ×2 (15:39→15:46)
[2017-08-18] MEDS: FAT EMULSION 20% 100 ML IV SCH (16:13)
[2017-08-18] MEDS: PANTOPRAZOLE 40 MG TABLET PO SCH (20:26)
[2017-08-18] MEDS: TAMSULOSIN 0.4 MG CAPSULE PO SCH (20:26)
[2017-08-18] MEDS ORDERED: TRAZODONE 50 MG TABLET PO SCH (21:00)
[2017-08-19] MEDS: [UNRECOGNIZED DRUG - OTHER] IV SCH (05:30)
[2017-08-19] MEDS: POTASSIUM CHLORIDE IV SCH (05:30)
[2017-08-19] MEDS: POTASSIUM ACETATE IV SCH (05:30)
[2017-08-19] MEDS ORDERED: TRAZODONE 50 MG TABLET PO PRN (06:45)
[2017-08-19] MEDS: ALBUTEROL/IPRATROPIUM 2.5mg-0.5mg/3ml NEB AEROSOL SCH (07:31)
[2017-08-19 07:37] VITALS: O2SAT 95
[2017-08-19] MEDS ORDERED: MAG-AL + SIM ORAL LIQUID 30ml PO PRN (07:42)
--- NOTE | 2017-08-19 07:48 | General Surgery Progress Note ---
Subjective Patient reports: feels better, pain is less, tolerating liquids well (fulls plus crackers and chips), voiding w/o difficulty, flatus, bowel movement (large per patient each of the last 2 dys.) Narrative: He state abd is much softer, "more like normal" except for some tenderness with palpation LLQ. Not taking any narcotic pain medication, only Ibuprofen prn. Carafate slurry has helped he heartburn, will transition him to liquid Maalox. Denies nausea, NG came out 2 days ago. Will start regular diet and let pharmacy know his current bag of TPN is the last. - Vital Signs Last Vital Signs Temp 96.6 F L 08/19/17 07:14 Pulse 100 08/19/17 07:14 Resp 14 08/19/17 07:31 BP 123/80 08/19/17 07:14 Pulse Ox 95 08/19/17 07:31 - Laboratory Result Diagrams: 08/18/17 04:43 08/19/17 04:49 - Abnormal Exam Cardiovascular: other (EGD obtained yesterday shows sinus tachy about 110) Abdominal: incision(s) (ecchymosis is fading in the lower portion of the abd/ incision, umiblical skin edges still dark and may superficially necrose.) - Normal Exam General: awake, alert, oriented, no acute distress Respiratory: equal bilaterally, no labored breathing Abdominal: BS normo active x4, soft, appropriately tender, incision(s) (pamela in tact, no eyrthema) Psychiatric: normal affect Neurological: CN 2-12 grossly intact Assessment and Plan (1) Postoperative incisional hernia Current Visit: Yes Status: Acute (2) Ileus, postoperative Current Visit: Yes Status: Acute (3) Depression Current Visit: Yes Status: Chronic Qualifiers: Depression Type: major depressive disorder Active/Remission status: in remission of unspecified degree (4) History of pulmonary embolism Current Visit: Yes Status: Chronic (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 No nausea and tolerating full liquids with crackers and chips, will advance to regular for breakfast. DC TPN when current bag empty. Chest pain seems to be GERD or NG tube irritation and is much better since NG DC 'd. If he continues to do well with regular diet, anticipate DC to home later today or tomorrow. 2pm update: doing well after breakfast and lunch regular diet. Visited with pt together with Dr. Avila Will DC to home this afternoon. Hospital Course Summary Disclaimer: The visit summary below is not to be considered part of the above Progress Note. Hospital Course: 08/09 POD #1 ASSESSMENT 51-year-old gentleman status post combined open and robotic-assisted laparoscopic repair of incisional hernias. Overall patient doing well. PLAN Will continue with current care. It is my intuition the patient will likely require hospitalization over the next 24-48 hours for pain control and to make sure that his bowel activity resumes without difficulty. Will continue to follow along closely. 08/10 developed tachycardia 120's-130's and crackles per nursing, he has history of PE and hypercoagulable state, CT angio obtained and found to be neg for PE. 08/11 POD #3 ASSESSMENT 51-year-old gentleman status post combined open and robotic assisted laparoscopic repair of incisional hernias. Overall patient doing well with the development of some increasing abdominal distention and tachycardia of uncertain etiology. PLAN The patient did state he had several bowel movements yesterday. Overall his pain is fairly well-controlled with oral narcotics. I am a little concerned to send the patient home today given his onset of tachycardia and his onset of some generalized abdominal discomfort. Will go ahead and keep the patient in the hospital today and continue to monitor closely. Will repeat lab tomorrow and reassess. Patient does have a history for hypercoagulable state and was placed back on his Pradaxa to reinitiate his anticoagulation. 08/12: Hosp consult Tachycardia Check EKG Continue IV fluids. CT angiogram done on 08/10/17 was negative for PE. Hypoxia Portable chest x-ray ordered. Check ABG. DuoNeb 4 times a day. Leukopenia and mild elevation in temperature Chest x-ray and UA Check lactate and procalcitonin Agree with repeating CBC Oliguria Agree with 500 ML fluid bolus as already ordered by Michael Briones APRN. BUN increased mildly to 24, creatinine is stable at 1.1. Follow closely. Monitor intake and output. Somnolence High risk IV narcotic meds in use; minimize as able. ABG ordered. Postop cares and ileus Per attending 08/13/17 Kidney function worsening Cr 1.1-->1.3, BUN 24-->28 despite IVF's running at 150cc's/hr. Previous CTA chest on 08/10. Ellis cath placed due to urinary retention. Decreased UOP. Monitor I&O closely. Tachycardia persists, but is low 100's vs 120's yesterday. BP stable. Dr. Avila has ordered CT abd with contrast - will watch urine OP and hold CT or proceed w/o dye if UOP isn't adequate. Pip/Tazo started by Dr. Avila. Bands increased 9-->23. Continues on 2L O2. Remains NPO (sips and chips) w/ NG tube. 08/14/17 Kidney function improved today. Continue Ellis for now in event he goes back to OR. Tachycardia persists, but is improving. Running low 100s. CT abd reveals high-grade distal partial small bowel obstruction in the anterior abdomen likely due to adhesion. Pulmonary lobar consolidation also seen on CT. Suspect bandemia could be r/t possible pneumonia. Continue Zosyn (Day#2) and is on Zithromax for ileus - continue for pulmonary coverage. He has been weaned off of oxygen. Maintaining low 90's off of oxygen. Remains NPO (sips and chips) w/ NG tube. 08/15 PLAN Given his prolonged ileus, it was my recommendation that we go ahead and place a PICC line today to initiate hyperalimentation. Would recommend trying to control his pain more so with Toradol and less narcotics to hopefully facilitate recovery of his GI tract. The patient remains to be without acute surgical abdomen. Will continue to follow closely. 08/16 Abd a little softer this am, and he states feeling a little better. Requesting shower. Continue current care, may shower, watch the umbilical area for seroma. 08/18 The patient was seen by me today. He is doing better today. He is still distended and TTP in the abdomen. He denies nausea. He would like more to eat. 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 He had a large BM yesterday and her reports padding flatus. He did pull the NGT out and Dr. Wei agreed not to replace it. He denies fevers or chills. He denies cough or sputum, no SOA. NO CP or palp. He continues to receive TPN for nutrition. He is having good urine output. 08/19 POD #11 Ileus has resolved, having good BM's. No nausea and tolerating full liquids with crackers and chips, will advance to regular for breakfast. DC TPN when current bag empty. Chest pain seems to be GERD or NG tube irritation and is much better since NG DC 'd. If he continues to do well with regular diet, anticipate DC to home later today.
--- NOTE | 2017-08-19 07:52 | Progress Note ---
DATE 08/18/2017 HISTORY OF PRESENT ILLNESS The nasogastric tube for this patient fell out yesterday so we just left it out after that. The patient has been tolerating a clear liquid diet since that time. The patient reports today that he has not been having any nausea or vomiting. He believes he is tolerating clear liquids well. He is interested in having his diet advanced to a full liquid diet. The patient has continued to pass flatus during last 24 hours. He has had no further bowel movements in the last 24 hours. PHYSICAL EXAMINATION VITAL SIGNS: Temperature is 96.2 degrees Fahrenheit oral. Pulse is 98. Respiratory rate is 12. Blood pressure is 124/79. Oxygen saturation is 94% on room air. ABDOMEN: The abdominal incisions all look good. The abdomen is just a little bit distended and tympanic today. The abdomen is soft. LABORATORY DATA White blood cell count is 9000 today with 2 bands. Hemoglobin is 12.6. Hematocrit is 37.9. Serum sodium is 145. Serum potassium is 4.3. Serum chloride is 111. IMPRESSION 1. Doing well overall following combined open and robotic-assisted laparoscopic repair of incisional hernias on 08/08/2017. 2. Postoperative ileus. PLAN 1. Advance diet to full liquid diet. 2. Continue TPN. The rate of administration of TPN could be decreased. 3. Continue ambulation of the patient. 4. Work today to transition the patient from intravenous analgesics to oral analgesics in preparation for discharge from the hospital. GABRIELLA
[2017-08-19] MEDS: SERTRALINE 100 MG TABLET PO SCH (08:14)
[2017-08-19] MEDS: PREGABALIN 150 MG CAPSULE PO SCH (08:14)
[2017-08-19] MEDS: BENZTROPINE 1 MG TABLET PO SCH (08:14)
[2017-08-19] MEDS: PANTOPRAZOLE 40 MG TABLET PO SCH (08:14)
[2017-08-19] MEDS: CARIPRAZINE HCL 6 MG PO SCH (08:15)
[2017-08-19] MEDS: POLYETHYL GLYCOL 3350 17gm PACKET PO SCH (08:16)
[2017-08-19] MEDS: SALINE FLUSH 10ml SYRINGE IV PRN (08:19)
--- NOTE | 2017-08-19 10:45 | Progress Note ---
- Date 08/19/17 Subjective: Iain is seen today in follow up for postop ileus following hernia repair. He states that he is feeling good. He is tolerating PO intake without difficult. Bowels are moving regularly. Denies having shortness of breath, chest pain. Mild left abdominal tenderness. Abdominal incisions with pamela present. No evidence of erythema or drainage. Objective Vital signs: Temperature 96.6 F L 08/19/17 07:14 Pulse Rate 105 H 08/19/17 07:53 Respiratory Rate 14 08/19/17 07:31 Blood Pressure 123/80 08/19/17 07:14 Pulse Oximetry 95 08/19/17 07:31 Height/Weight/BMI: Height 1.91 m Weight 118.7 kg Body Mass Index 33.0 - Constitutional Present: no acute distress, well nourished, well developed - Routine HEENT Exam Eye: Present: EOMI ENT: Present: mucous membranes moist, dentition normal - Routine Respiratory Exam Present: CTA bilaterally. Absent: wheezes - Routine Cardiovascular Exam Present: RRR, S1, S2. Absent: murmur - Routine Abdominal Exam Present: soft, normoactive bowel sounds, non distended. Absent: tenderness Comments: superficial tenderness to left incision - Routine Extremities Exam Present: no edema - Routine Back/Spine/Pelvis Exam Back/Spine: Present: full ROM - Routine Skin Exam Present: intact, dry, warm - Routine Neurological Exam Present: alert, oriented X3, CN II-XII intact, moving all extremities - Routine Lymphatic Exam Lymphatic: Absent: adenopathy - Routine Psychiatric Exam Present: normal affect, normal thought process, cooperative Results - Labs CBC & Chem 7: 08/18/17 04:43 08/19/17 04:49 Assessment and Plan Assessment and Plan: Assessment S/P combined open and robotic assisted laparoscopic repair of incisional hernias on 08/08/[address] Avila Post op Ileus- Resolved Hypoxia-Resolved Leukopenia Bandemia -Resolved Oliguria Urinary retention Chronic kidney disease Hypercoagulable state due to Factor V Leiden deficiency Pulmonary embolus Chronic anticoagulation for factor V Leiden-On Pradaxa Mildly elevated LFT H/O Bowel perforation ( w/ colon resection and loop ileostomy 04/20/2016 , with takedown of ileostomy 03/08) Hypercholesterolemia Chronic venous insufficiency Bipolar disorder, Generalized anxiety disorder, Attention deficit disorder, Chronic fatigue syndrome Chronic pain, Fibromyalgia 08/19/17 Overall appears medically stable TPN stopped today. Tolerating PO intake. Encourage water intake to help with mild hypernatremia Bowels are moving regularly Encourage ambulation Recommend follow up with PCP Dr Gomes in 1 week recheck labs at that time DVT Prophylaxis: SCD's Resuscitation Status: Full Code - Time spent with patient Time with patient PN: 35 minutes - Physician Narrative Physician: Osmani Valentino MD Narrative: Date: 08/19/17 Time: 1534 Case discussed with my HIP HOP DANCE INSTRUCTOR. Agree with above. Patient discharge before I was able to visit. Medically stable for discharge to home. Hospital Course Summary Disclaimer: The visit summary below is not to be considered part of the above Progress Note. Hospital Course: 08/09 POD #1 ASSESSMENT 51-year-old gentleman status post combined open and robotic-assisted laparoscopic repair of incisional hernias. Overall patient doing well. PLAN Will continue with current care. It is my intuition the patient will likely require hospitalization over the next 24-48 hours for pain control and to make sure that his bowel activity resumes without difficulty. Will continue to follow along closely. 08/10 developed tachycardia 120's-130's and crackles per nursing, he has history of PE and hypercoagulable state, CT angio obtained and found to be neg for PE. 08/11 POD #3 ASSESSMENT 51-year-old gentleman status post combined open and robotic assisted laparoscopic repair of incisional hernias. Overall patient doing well with the development of some increasing abdominal distention and tachycardia of uncertain etiology. PLAN The patient did state he had several bowel movements yesterday. Overall his pain is fairly well-controlled with oral narcotics. I am a little concerned to send the patient home today given his onset of tachycardia and his onset of some generalized abdominal discomfort. Will go ahead and keep the patient in the hospital today and continue to monitor closely. Will repeat lab tomorrow and reassess. Patient does have a history for hypercoagulable state and was placed back on his Pradaxa to reinitiate his anticoagulation. 08/12: Hosp consult Tachycardia Check EKG Continue IV fluids. CT angiogram done on 08/10/17 was negative for PE. Hypoxia Portable chest x-ray ordered. Check ABG. DuoNeb 4 times a day. Leukopenia and mild elevation in temperature Chest x-ray and UA Check lactate and procalcitonin Agree with repeating CBC Oliguria Agree with 500 ML fluid bolus as already ordered by Michael Briones APRN. BUN increased mildly to 24, creatinine is stable at 1.1. Follow closely. Monitor intake and output. Somnolence High risk IV narcotic meds in use; minimize as able. ABG ordered. Postop cares and ileus Per attending 08/13/17 Kidney function worsening Cr 1.1-->1.3, BUN 24-->28 despite IVF's running at 150cc's/hr. Previous CTA chest on 08/10. Ellis cath placed due to urinary retention. Decreased UOP. Monitor I&O closely. Tachycardia persists, but is low 100's vs 120's yesterday. BP stable. Dr. Avila has ordered CT abd with contrast - will watch urine OP and hold CT or proceed w/o dye if UOP isn't adequate. Pip/Tazo started by Dr. Avila. Bands increased 9-->23. Continues on 2L O2. Remains NPO (sips and chips) w/ NG tube. 08/14/17 Kidney function improved today. Continue Ellis for now in event he goes back to OR. Tachycardia persists, but is improving. Running low 100s. CT abd reveals high-grade distal partial small bowel obstruction in the anterior abdomen likely due to adhesion. Pulmonary lobar consolidation also seen on CT. Suspect bandemia could be r/t possible pneumonia. Continue Zosyn (Day#2) and is on Zithromax for ileus - continue for pulmonary coverage. He has been weaned off of oxygen. Maintaining low 90's off of oxygen. Remains NPO (sips and chips) w/ NG tube. 08/15 PLAN Given his prolonged ileus, it was my recommendation that we go ahead and place a PICC line today to initiate hyperalimentation. Would recommend trying to control his pain more so with Toradol and less narcotics to hopefully facilitate recovery of his GI tract. The patient remains to be without acute surgical abdomen. Will continue to follow closely. 08/16 Abd a little softer this am, and he states feeling a little better. Requesting shower. Continue current care, may shower, watch the umbilical area for seroma. 08/18 The patient was seen by me today. He is doing better today. He is still distended and TTP in the abdomen. He denies nausea. He would like more to eat. 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 He had a large BM yesterday and her reports padding flatus. He did pull the NGT out and Dr. Wei agreed not to replace it. He denies fevers or chills. He denies cough or sputum, no SOA. NO CP or palp. He continues to receive TPN for nutrition. He is having good urine output. 08/19 POD #11 Ileus has resolved, having good BM's. No nausea and tolerating full liquids with crackers and chips, will advance to regular for breakfast. DC TPN when current bag empty. Chest pain seems to be GERD or NG tube irritation and is much better since NG DC 'd. If he continues to do well with regular diet, anticipate DC to home later today or tomorrow. 08/19/17- hospitalist Overall appears medically stable TPN stopped today. Tolerating PO intake. Encourage water intake to help with mild hypernatremia Bowels are moving regularly Encourage ambulation Recommend follow up with PCP Dr Gomes in 1 week recheck labs at that time
[2017-08-19 11:13] VITALS: BP 122/79; PULSE 107; RESP 16; TEMP 95.8
--- NOTE | 2017-08-19 13:56 | Discharge Summary ---
Discharge Information Date of admission: 08/08/17 19:53 Anticipated date of discharge: 08/19/17 Attending Physician: Evan Avila MD Primary care physician: Juan Pablo Gomes DO Consults: 08/08/17 13:21 Consult to Anesthesiology [CONS] Routine Reason For Exam: anesthesia 08/12/17 15:43 Physician Consult [CONS] Routine Consulting Provider: Osmani Valentino Reason For Exam: TEMP, TACHY Ordering Provider has Notified Skein Bleacher: Yes - Discharge Diagnosis (1) Postoperative incisional hernia Status: Acute (2) Ileus, postoperative Status: Suspected (3) Depression Status: Chronic (4) History of pulmonary embolism Status: Chronic (5) retirement (current) use of antithrombotics/antiplatelets Status: Chronic (6) Chest pain due to GERD Status: Chronic (7) Sinus tachycardia by electrocardiogram Status: Resolved (8) Hypernatremia Status: Acute (9) Hypokalemia due to loss of potassium Status: Resolved - Procedures Procedures: DATE OF SERVICE 08/08/2017 SURGEON Evan Avila MD CONTENT CHECKER Michael Briones APRN PREOPERATIVE DIAGNOSIS Incisional hernia. POSTOPERATIVE DIAGNOSIS Incisional hernias. PROCEDURE Combined open and robotic assisted laparoscopic repair of incisional hernias. - Laboratory Labs: 08/18/17 04:43 08/19/17 04:49 - Radiology Radiology: 08/10/[address]-A Pulmonary arteries: Exam is diagnostic to the subsegmental pulmonary arterial level. No filling defects identified to suggest a pulmonary embolus. Bibasilar atelectasis. Upper lung recinos are clear. No pneumothorax or effusion. The central airways are patent. No axillary or mediastinal adenopathy. Heart size is borderline enlarged without pericardial effusion. The upper abdomen shows no acute findings. Impression: No pulmonary embolus. Mild basilar atelectasis. 08/12 KUB upright Findings: There are multiple loops of mildly dilated small bowel in the mid to upper abdomen suggesting a small bowel obstruction or ileus. There is a small amount of gas in the large bowel. There is some left basilar pulmonary atelectasis. No subdiaphragmatic free air. No soft tissue mass or abnormal calcification. Impression: Dilated loops of predominantly small bowel suggesting small bowel obstruction versus ileus. 08/12 CXR Findings: There is cardiomegaly with probably vascular congestion. No clear interstitial palmar edema. There is some persistent bibasilar pulmonary atelectasis, right greater than left. The exam is slightly expiratory in nature. Trachea is midline. No subdiaphragmatic free air. Impression: Persistent bibasilar pulmonary atelectasis. No definite pleural effusion or lobar consolidation. 08/13 CT Abd/Pelvis Findings: Consolidation in both lower lobes. Heart is enlarged. The liver shows no enhancing mass or bile duct obstruction. The gallbladder is unremarkable. Nasogastric tube is in the stomach which contains some high attenuation material. The spleen, pancreas and adrenal glands are within normal limits. Kidneys show no acute findings. IVC filter in place. No abdominal or pelvic adenopathy. Ellis catheter within a decompressed bladder. Tiny foci of free air in the ventral abdomen and pelvis likely related to prior surgery. Colonic anastomosis in the sigmoid region. The colon is decompressed distally with abrupt transition to gas-filled distended colon at the splenic flexure best seen on axial image #33. Small bowel is dilated and fluid-filled to 5.5 cm in diameter throughout the proximal to midportion with a region of gradual transition seen in the ventral abdomen near the area of recent surgery where there is a small amount of fluid seen in the anterior omental region and overlying subcutaneous gas and induration at the surgical incision sites. The distal ileum is relatively decompressed although still fluid-filled. Impression: Evidence of a high-grade distal partial small bowel obstruction in the anterior abdomen likely due to adhesion. 08/15 CXR post PICC line Findings: Nasogastric tube in place extending below the diaphragm. The tip is not clearly visualized on this exam. New right PICC line in place with the tip projecting over the expected cavoatrial junction. Lungs are mildly hypoinflated with bibasilar atelectasis and small effusions. No pneumothorax. Heart size and mediastinal contours are stable. Pulmonary vascularity appears normal. Impression: New right PICC line tip projects over the expected cavoatrial junction. 08/15 KUB upright Findings: Dilated small bowel loops are seen in the left abdomen measuring up to 6 cm in diameter. Surgical skin pamela are noted. There is colonic gas with evidence of colonic wall edema in the transverse colon. Gas is present distally to the level of the rectum. Nasogastric tube in place coiling within the stomach with the tip projecting over the area of the pylorus. Basilar atelectasis. Nondifferential air-fluid levels seen on the upright views. Impression: Generalized small and large bowel distention with nondifferential air-fluid levels could represent a postoperative ileus or partial small bowel obstruction 08/12 and 08/14 EKG - Sinus tachycardia - History of Present Illness HPI: BRIEF HISTORY/INDICATIONS Mr. Borjas is a 51-year-old gentleman who recently presented to my office as a result of a symptomatic incisional hernia. The patient was found to have a fascial defect along his prior midline incision. The patient had had a prior history for a bout of ruptured diverticulitis. Patient presents today to undergo elective repair of his incisional hernia. Hospital Course This is a general summary of the patient's hospital course. For more details refer to the complete medical record. Hospital course: 08/09 POD #1 ASSESSMENT 51-year-old gentleman status post combined open and robotic-assisted laparoscopic repair of incisional hernias. Overall patient doing well. PLAN Will continue with current care. It is my intuition the patient will likely require hospitalization over the next 24-48 hours for pain control and to make sure that his bowel activity resumes without difficulty. Will continue to follow along closely. 08/10 developed tachycardia 120's-130's and crackles per nursing, he has history of PE and hypercoagulable state, CT angio obtained and found to be neg for PE. 08/11 POD #3 ASSESSMENT 51-year-old gentleman status post combined open and robotic assisted laparoscopic repair of incisional hernias. Overall patient doing well with the development of some increasing abdominal distention and tachycardia of uncertain etiology. PLAN The patient did state he had several bowel movements yesterday. Overall his pain is fairly well-controlled with oral narcotics. I am a little concerned to send the patient home today given his onset of tachycardia and his onset of some generalized abdominal discomfort. Will go ahead and keep the patient in the hospital today and continue to monitor closely. Will repeat lab tomorrow and reassess. Patient does have a history for hypercoagulable state and was placed back on his Pradaxa to reinitiate his anticoagulation. 08/12: Hosp consult Tachycardia Check EKG Continue IV fluids. CT angiogram done on 08/10/17 was negative for PE. Hypoxia Portable chest x-ray ordered. Check ABG. DuoNeb 4 times a day. Leukopenia and mild elevation in temperature Chest x-ray and UA Check lactate and procalcitonin Agree with repeating CBC Oliguria Agree with 500 ML fluid bolus as already ordered Somnolence High risk IV narcotic meds in use; minimize as able. ABG ordered. Postop cares and ileus Per attending 08/13/17 Kidney function worsening Cr 1.1-->1.3, BUN 24-->28 despite IVF's running at 150cc's/hr. Previous CTA chest on 08/10. Ellis cath placed due to urinary retention. Decreased UOP. Monitor I&O closely. Tachycardia persists, but is low 100's vs 120's yesterday. BP stable. Dr. Avila has ordered CT abd with contrast - will watch urine OP and hold CT or proceed w/o dye if UOP isn't adequate. Pip/Tazo started by Dr. Avila. Bands increased 9-->23. Continues on 2L O2. Remains NPO (sips and chips) w/ NG tube. 08/14/17 Kidney function improved today. Continue Ellis for now in event he goes back to OR. Tachycardia persists, but is improving. Running low 100s. CT abd reveals high-grade distal partial small bowel obstruction in the anterior abdomen likely due to adhesion. Pulmonary lobar consolidation also seen on CT. Suspect bandemia could be r/t possible pneumonia. Continue Zosyn (Day#2) and is on Zithromax for ileus - continue for pulmonary coverage. He has been weaned off of oxygen. Maintaining low 90's off of oxygen. Remains NPO (sips and chips) w/ NG tube. 08/15 PLAN Given his prolonged ileus, it was my recommendation that we go ahead and place a PICC line today to initiate hyperalimentation. Would recommend trying to control his pain more so with Toradol and less narcotics to hopefully facilitate recovery of his GI tract. The patient remains to be without acute surgical abdomen. Will continue to follow closely. 08/16 Abd a little softer this am, and he states feeling a little better. Requesting shower. Continue current care, may shower, watch the umbilical area for seroma. 08/18 The patient was seen by me today. He is doing better today. He is still distended and TTP in the abdomen. He denies nausea. He would like more to eat. 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 He had a large BM yesterday and her reports padding flatus. He did pull the NGT out and Dr. Wei agreed not to replace it. He denies fevers or chills. He denies cough or sputum, no SOA. NO CP or palp. He continues to receive TPN for nutrition. He is having good urine output. 08/19 POD #11 Ileus has resolved, having good BM's. No nausea and tolerating full liquids with crackers and chips, will advance to regular for breakfast. DC TPN when current bag empty. Chest pain seems to be GERD or NG tube irritation and is much better since NG DC 'd. If he continues to do well with regular diet, anticipate DC to home later today. Time spent with patient: 25 - 35 minutes Resuscitation Status: Full Code Discharge Plan - Med Rec/Dispo Referrals/Follow Up: Juan Pablo Gomes DO [Primary Care Provider] - (Please schedule follow up apt for 1 week. Will need CBC and BMP at that time) Amarilys Briones, MICROBIOLOGY LABORATORY MANAGER [Advanced Practice Nurse] - 08/27/17 1:00 pm (post op staple removal) Prescriptions: New Acetaminophen [Tylenol] 2 tab PO Q5H PRN #60 tab PRN Reason: Pain RX: Ibuprofen [Motrin] 400 - 800 mg PO Q6H PRN #60 tab PRN Reason: Pain RX: Mag-Al + Sim Oral Liq [Maalox Plus] 30 ml PO Q4H PRN udc PRN Reason: Indigestion RX: Milk of Magnesia [Mom] 30 ml PO BID PRN udc PRN Reason: Constipation RX: PEG 3350 17gm PACKET [Miralax] 17 gm PO DAILY PRN #10 packet PRN Reason: contipation Continue RX: Quetiapine Fumarate [Seroquel Xr] 800 mg PO HS #0 RX: Sertraline [Zoloft] 200 mg PO DAILY trazodone 100 mg tablet 1 - 3 tab PO HS PRN tab PRN Reason: Prn Orders multivitamin,[id number] tablet 1 tab PO DAILY Seroquel (quetiapine) 50 mg tablet 50 mg PO BID PRN PRN Reason: anxiety L-Methylfolate 1 tab PO DAILY dextroamphetamine-amphetamine 30 mg tablet 30 mg PO BID benztropine 0.5 mg tablet 0.5 mg PO DAILY tab Lyrica (pregabalin) 150 mg capsule 150 mg PO TID cap Pradaxa (dabigatran etexilate) 150 mg capsule 1 cap PO BID 30 Days #60 lovastatin 20 mg tablet 20 mg PO DAILY 30 Days #30 tab albuterol sulfate HFA 90 mcg/actuation aerosol inhaler 1 - 2 puff ORAL INH PRN PRN 25 Days #8 PRN Reason: shortness of air cariprazine 6 mg capsule 6 mg PO DAILY No Action lactobacillus combination no.4 3 billion cell capsule 3,000 cell PO DAILY - Disposition 01 Discharged Home, Self-Care - Dismissal Complete Discharge Instructions are:: Complete
--- NOTE | 2017-08-20 08:42 | Progress Note ---
DATE 08/19/2017 FINDINGS Iain was seen earlier today on rounds. The patient states that he is feeling well and is "ready go home." His diet was advanced to regular diet today. VITALS: Afebrile. Normotensive. Remains slightly tachycardic. This not a new finding. ABDOMEN: Soft, nontender. Incision is clean, dry and intact. LABORATORY/RADIOGRAPH EVALUATION The patient had a CMP today that was unremarkable. ASSESSMENT A 51-year-old gentleman status post combined open and robotic-assisted laparoscopic repair of incisional hernias. Patient currently doing well. PLAN Discharge to home. Please refer to discharge orders if detail needed. MILTON[place]
== END 2017-08-19 15:15 | disposition home or self-care (01) | DRG 336 ==
LOC: SUR 13:03 → NMC.PERIOP 13:05 → SRG 19:25
PROVIDERS: ADMIT Surgery; ATTEND Surgery